=== PATIENT | female | born 1980 | race Caucasian/White ===

== ENCOUNTER 2016-08-26 02:00 | Inpatient (IN) | payer MEDICAID ==
[2016-08-26 02:30] LABS: % IMMATURE GRANULYOCYTES 0.3 % (0.0-1.1); ABSOLUTE IMMATURE GRANULOCYTES 0.03 10^3/uL (0.00-0.10); ADD DIFF? NO; ADD MORPH? YES; ADD SCAN? NO; ATYPICAL LYMPHOCYTE FLAG 0 (0-99); FRAGMENT RBC FLAG 0 (0-99); HEMATOCRIT 42.7 % (38.0-47.0); HEMOGLOBIN 12.1 g/dL (12.6-16.3); LEFT SHIFT FLG 0 (0-99); LIPEMIA HEMOLYSIS FLAG 70 (0-99); MEAN CELL HEMOGLOBIN 25.5 pg (27.9-34.1); MEAN CELL VOLUME 89.9 fL (81.5-99.8); MEAN PLATELET VOLUME 10.3 fL (8.7-11.7); PLATELET CLUMPS FLAG 10 (0-99); PLATELET COUNT 232 10^3/uL (150-400); RED BLOOD CELL COUNT 4.75 10^6/uL (4.18-5.33); RED CELL DISTRIBUTION WIDTH 16.3 % (11.5-15.2)
[2016-08-26 02:35] LABS: MEAN CELL HEMOGLOBIN CONCENTR. 28.3 g/dL (32.4-36.7)
[2016-08-26] MEDS ORDERED: HYDROmorphONE/DILAUDID 4 MG TAB PO ONE (03:01)
[2016-08-26] MEDS ORDERED: HYDROmorphONE/DILAUDID 2 MG TAB ONE (03:02)
[2016-08-26 03:06] LABS: HYPOCHROMIA 1+; PLATELET ESTIMATE ADEQUATE (ADEQ); POLYCHROMASIA 1+; STOMATOCYTES 1+
[2016-08-26 03:28] LABS: ANION GAP 7 mEq/L (8-16); CARBON DIOXIDE 19 mEq/l (22-31); CHLORIDE 122 mEq/L (97-110); CREATININE 0.4 mg/dL (0.6-1.0); GLOMERULAR FILTRATION RATE > 60; GLUCOSE 69 mg/dL (70-100); SODIUM 148 mEq/L (134-144)
[2016-08-26 03:38] LABS: CALCIUM 4.9 mg/dL (8.5-10.4); POTASSIUM 2.4 mEq/L (3.5-5.2)
[2016-08-26 03:39] LABS: TROPONIN I < 0.012 ng/mL (0-0.034)
[2016-08-26 04:13] LABS: ANION GAP 8 mEq/L (8-16); CALCIUM 8.5 mg/dL (8.5-10.4); CARBON DIOXIDE 33 mEq/l (22-31); CHLORIDE 101 mEq/L (97-110); CREATININE 0.7 mg/dL (0.6-1.0); GLOMERULAR FILTRATION RATE > 60; GLUCOSE 102 mg/dL (70-100); SODIUM 142 mEq/L (134-144)
--- NOTE | 2016-08-26 04:46 | CPEKG ---
Heart Rate: 92 RR Interval: 652 P-R Interval: 172 QRSD Interval: 74 QT Interval: 368 QTC Interval: 456 P [place]: 40 QRS [place]: 69 T Wave [place]: 5 EKG Severity - BORDERLINE ECG - EKG Impression: SINUS RHYTHM EKG Impression: LOW VOLTAGE IN FRONTAL LEADS EKG Impression: posterior EKG becasue of patient's positioning Electronically Signed By: Ada Guy 26-Aug-2016 07:40:57
--- NOTE | 2016-08-26 04:54 | EDPHY ---
H & P Stated Complaint: c/o L sided cp intermittent x 2 weeks Time Seen by Provider: 08/26/16 02:10 HPI/ROS: HPI The patient presents with chest pain which is in her left chest for the last 1- 2 weeks and getting progressively worse. She says the pain is somewhat positional, achy in nature, occasionally radiates to her right chest. It is associated with shortness of breath. She does not have any cough, nausea, vomiting, dizziness, diaphoresis. The patient is brought in by ambulance from [facility] where she is a resident. She has morbid obesity and is a functional quadriplegic. She describes worsening upper and lower extremity edema for the last 2 weeks and 3 days ago was started on Lasix for these symptoms. She has a history of pulmonary embolism and is on Lovenox twice daily currently. She is on supplemental oxygen at baseline, 6-8 L usually. She also has history of pneumothorax. REVIEW OF SYSTEMS Constitutional: No fever, no chills. Eyes: No discharge. ENT: No sore throat. Cardiovascular: No chest pain, no palpitations. Respiratory: No cough, no shortness of breath. Gastrointestinal: No abdominal pain, no vomiting. Genitourinary: No hematuria. Musculoskeletal: No back pain. Skin: No rashes. Neurological: No headache. PMHx: Morbid obesity, history of pulmonary embolism, history of pneumothorax Soc Hx: Resides at [facility] PHYSICAL General Appearance: Alert, no distress Eyes: Pupils equal and round no pallor or injection ENT, Mouth: Mucous membranes moist Respiratory: There are no retractions, lungs are clear to auscultation Cardiovascular: Regular rate and rhythm Gastrointestinal: Abdomen is soft and non-tender, no masses, bowel sounds normal Neurological: A&O, moves all extremities Skin: Warm and dry, no rashes Musculoskeletal: Neck is supple non tender Extremities: symmetrical, full range of motion Psychiatric: Patient is oriented X 3, there is no agitation Source: Patient, EMS - Personal History Tetanus Vaccine Date: 2012 - Medical/Surgical History Hx Asthma: No Hx Chronic Respiratory Disease: Yes Hx Diabetes: No Hx Cardiac Disease: No Hx Renal Disease: No Hx Cirrhosis: No Hx Alcoholism: No Hx HIV/AIDS: No Hx Splenectomy or Spleen Trauma: No Other PMH: Morbid obesity, pneumonia, abdominal surgery, epi, left leg surgery ; L chest port; anxiety; constipation; x2 PTX, ovarian cyst, wears 8L/NC at baseline, chronic pain, PE x 2 - Social History Smoking Status: Former smoker Constitutional: Initial Vital Signs Temperature (C) 36.9 C 08/26/16 02:27 Heart Rate 91 08/26/16 02:27 Respiratory Rate 18 08/26/16 02:27 Blood Pressure 116/95 H 08/26/16 02:27 O2 Sat (%) 100 08/26/16 02:27 O2 Delivery Mode Nasal Cannula O2 (L/minute) 7 Allergies/Adverse Reactions: amoxicillin Allergy (Unverified 02/08/15 18:34) aspirin Allergy (Verified 02/08/15 18:34) bupropion HCl [From Wellbutrin] Allergy (Verified 02/08/15 18:34) cephalexin monohydrate [From Keflex] Allergy (Verified 02/08/15 18:34) ciprofloxacin Allergy (Verified 02/08/15 18:34) codeine Allergy (Verified 02/08/15 18:34) cyclobenzaprine Allergy (Verified 02/08/15 18:34) cyclobenzaprine HCl [From Flexeril] Allergy (Verified 02/08/15 18:34) divalproex sodium [From Depakote] Allergy (Verified 02/08/15 18:34) fish oil Allergy (Verified 02/08/15 18:34) guaifenesin Allergy (Verified 02/08/15 18:34) ibuprofen Allergy (Verified 02/08/15 18:34) Iodinated Contrast Media - Oral and [Iodinated Contrast Media - IV Dye] Allergy (Verified 02/21/16 16:08) ketorolac Allergy (Verified 02/08/15 18:34) latex Allergy (Verified 02/08/15 18:34) morphine Allergy (Verified 02/08/15 18:34) mupirocin Allergy (Verified 02/08/15 18:34) nitroglycerin Allergy (Verified 02/08/15 18:34) NSAIDS (Non-Steroidal Anti-Inflamma Allergy (Verified 02/08/15 18:34) Penicillins Allergy (Verified 02/08/15 18:34) reishi mushroom [mushrooms] Allergy (Verified 02/08/15 18:34) sertraline HCl [From Zoloft] Allergy (Verified 02/08/15 18:34) sulfamethoxazole Allergy (Verified 02/08/15 18:34) tramadol Allergy (Verified 02/08/15 18:34) trimethoprim Allergy (Verified 02/08/15 18:34) venlafaxine HCl [From Effexor] Allergy (Verified 02/08/15 18:34) zolpidem tartrate [From Ambien] Allergy (Verified 02/08/15 18:34) Home Medications: Medication Instructions Recorded Acetaminophen [Tylenol ES 500 mg 500 mg PO Q6 PRN 09/23/14 (*)] Enoxaparin [Lovenox 120 MG (*)] 120 mg SQ BID 09/23/14 clonazePAM [Klonopin (*)] 0.5 mg PO Q6 PRN 09/23/14 Bisacodyl [Dulcolax] 10 mg IL Q2D PRN 11/08/14 Docusate Sodium [Colace 100 MG (*)] 100 mg PO BID 11/08/14 Prochlorperazine Maleate 5 mg PO Q6 PRN 11/08/14 [Compazine 5mg (*)] oxyCODONE IR [Oxycodone Ir (*)] 10 mg PO Q6 PRN 04/22/15 HYDROmorphone HCL [Dilaudid 2 mg 2 - 4 mg PO Q3H PRN #0 tab 04/27/15 (*)] Ipratropium/Albuterol [Duoneb (*)] 3 ml IH QID #0 deyvial 04/27/15 Magnesium Hydroxide [Milk of 30 ml PO DAILY PRN #0 udcup 04/27/15 Magnesia (*)] Polyethylene Glycol 3350 [Miralax 17 gm PO DAILY PRN #0 pkt 04/27/15 17 gm (*)] Promethazine HCl [Phenergan] 25 mg PO BID PRN #30 tab 04/27/15 Sennosides/Docusate Sodium 1 - 2 tab PO BID #0 tab 04/27/15 [Senokot-S] Medical Decision Making - Diagnostics EKG Interpretation: EKG performed on her posterior chest wall given her habitus: Complete interpretation has been separately recorded in the [email or web address] archive. Summary impression: Sinus rhythm with no ST segment elevation or depression Imaging Results: Chest x-ray one view is uninterpretable secondary to patient's habitus. ED Course/Re-evaluation: The patient is brought to the ER by ambulance and I have met the paramedics at the bedside to obtain their report. The patient was placed on oxygen. We are unable to obtain a chest x-ray given the patient's habitus. Labs were check, initially BMP was quite abnormal, thus it was repeated and was normal. D-dimer is 1, higher than it has been previously, which raises suspicion for pulmonary embolism, though she is currently anticoagulated. EKG was unremarkable, troponin was negative. Because the patient weighs more than 500 lb she cannot have a CT scan. Thus, I cannot evaluate for PE from the emergency room. She will require admission to the hospital for V/Q scan. I have discussed the case with the hospitalist Dr. Randell Foster who plans to admit the patient, I have ordered her a bed. Differential Diagnosis: This is a 36-year-old female with morbid obesity, obesity hypoventilation syndrome on chronic oxygen, history of PE, [facility] who presents with 2 weeks of progressive left-sided chest pain which has been intermittent. Differential diagnosis includes musculoskeletal pain, ACS, recurrent pulmonary embolism, pneumonia, less likely pneumothorax. - Data Points Laboratory Results: Laboratory Results 08/26/16 02:22 08/26/16 03:52 08/26/16 08/26/16 08/26/16 03:52 02:22 02:22 WBC RBC Hgb Hct MCV MCH MCHC RDW Plt Count MPV Neut % (Auto) Lymph % (Auto) Levy % (Auto) Eos % (Auto) Baso % (Auto) Nucleat RBC Rel Count Absolute Neuts (auto) Absolute Lymphs (auto) Absolute Monos (auto) Absolute Eos (auto) Absolute Basos (auto) Absolute Nucleated RBC Immature Gran % Immature Gran # Platelet Estimate Polychromasia Hypochromasia Stomatocytes D-Dimer 1.00 ug/mLFEU H ug/mLFEU (0.00-0.50) Sodium 142 mEq/L mEq/L (134-144) Potassium 4.0 mEq/L mEq/L (3.5-5.2) Chloride 101 mEq/L D mEq/L (97-110) Carbon Dioxide 33 mEq/l H D mEq/l (22-31) Anion Gap 8 mEq/L mEq/L (8-16) BUN 9 mg/dL mg/dL (7-23) Creatinine 0.7 mg/dL D mg/dL (0.6-1.0) Estimated GFR > 60 Glucose 102 mg/dL H mg/dL (70-100) Calcium 8.5 mg/dL D mg/dL (8.5-10.4) Troponin I Beta HCG, Qual NEGATIVE 08/26/16 08/26/16 02:22 02:22 WBC 10.31 10^3/uL H 10^3/uL (3.80-9.50) RBC 4.75 10^6/uL 10^6/uL (4.18-5.33) Hgb 12.1 g/dL L g/dL (12.6-16.3) Hct 42.7 % % (38.0-47.0) MCV 89.9 fL fL (81.5-99.8) MCH 25.5 pg L pg (27.9-34.1) MCHC 28.3 g/dL L g/dL (32.4-36.7) RDW 16.3 % H % (11.5-15.2) Plt Count 232 10^3/uL 10^3/uL (150-400) MPV 10.3 fL fL (8.7-11.7) Neut % (Auto) 57.7 % % (39.3-74.2) Lymph % (Auto) 34.0 % % (15.0-45.0) Levy % (Auto) 6.3 % % (4.5-13.0) Eos % (Auto) 1.4 % % (0.6-7.6) Baso % (Auto) 0.3 % % (0.3-1.7) Nucleat RBC Rel Count 0.0 % % (0.0-0.2) Absolute Neuts (auto) 5.95 10^3/uL 10^3/uL (1.70-6.50) Absolute Lymphs (auto) 3.51 10^3/uL H 10^3/uL (1.00-3.00) Absolute Monos (auto) 0.65 10^3/uL 10^3/uL (0.30-0.80) Absolute Eos (auto) 0.14 10^3/uL 10^3/uL (0.03-0.40) Absolute Basos (auto) 0.03 10^3/uL 10^3/uL (0.02-0.10) Absolute Nucleated RBC 0.00 10^3/uL 10^3/uL (0-0.01) Immature Gran % 0.3 % % (0.0-1.1) Immature Gran # 0.03 10^3/uL 10^3/uL (0.00-0.10) Platelet Estimate ADEQUATE (ADEQ) Polychromasia 1+ H Hypochromasia 1+ H Stomatocytes 1+ H D-Dimer Sodium 148 mEq/L H mEq/L (134-144) Potassium 2.4 mEq/L L* mEq/L (3.5-5.2) Chloride 122 mEq/L H mEq/L (97-110) Carbon Dioxide 19 mEq/l L mEq/l (22-31) Anion Gap 7 mEq/L L mEq/L (8-16) BUN 6 mg/dL L mg/dL (7-23) Creatinine 0.4 mg/dL L mg/dL (0.6-1.0) Estimated GFR > 60 Glucose 69 mg/dL L mg/dL (70-100) Calcium 4.9 mg/dL L* mg/dL (8.5-10.4) Troponin I < 0.012 ng/mL ng/mL (0-0.034) Beta HCG, Qual Medications Given: Discontinued Medications Hydromorphone HCl (Dilaudid) 4 mg PO EDNOW ONE Stop: 08/26/16 03:02 Last Admin: 08/26/16 03:04 Dose: 4 mg Departure - Departure Disposition: [facility] In[facility] Acute Clinical Impression: D-dimer, elevated Chest pain Qualifiers: Chest pain type: unspecified Qualified Code(s): R07.9 - Chest pain, unspecified Morbid obesity Qualifiers: Obesity type: unspecified obesity type Qualified Code(s): E66.01 - Morbid ( severe) obesity due to excess calories Condition: Fair Referrals: ALEXANDER BARBOSA [Primary Care Provider] - As per Instructions
[2016-08-26] MEDS ORDERED: ONDANSETRON 4 MG/2 ML VIAL IVP PRN (07:04)
[2016-08-26] MEDS ORDERED: ONDANSETRON DISINTEGRATING 4 MG TAB PO PRN (07:04)
[2016-08-26] MEDS ORDERED: ALBUTEROL 3 ML DEYVIAL IH PRN (07:04)
[2016-08-26] MEDS ORDERED: LORazepam 2 MG/ML INJ IVP PRN (07:04)
[2016-08-26] MEDS ORDERED: oxyCODONE IR 5 MG TAB PO PRN (07:04)
[2016-08-26] MEDS ORDERED: POLYETHYLENE GLYCOL 3350 17 GM PKT PO PRN (07:25)
[2016-08-26] MEDS ORDERED: LACTULOSE 20 GM/30 ML UDCUP PO PRN (07:25)
[2016-08-26] MEDS ORDERED: MAGNESIUM HYDROXIDE 30 ML UDCUP PO PRN (07:25)
--- NOTE | 2016-08-26 08:18 | GHP ---
[f rep st] HISTORY AND PHYSICAL DATE OF ADMISSION: 08/26/2016 CHIEF COMPLAINT: Chest pain. HISTORY: This is a 36-year-old female, who has a past medical history that includes morbid obesity. BMI previously around 70, as well as antithrombin 3, and prior PE/DVT, who presents with over 1 we ek of chest pain, which she describes as her "lungs hurting." She has not had any change in her oxy gen needs and is on her usual 8 L of O2. She denies any change in usual chronic cough. She has had no fevers or chills. She has chronic leg pain, which is stable, though she notes that she has incr eased edema in her bilateral lower extremities. She has recently been started on Lasix and has been urinating a lot. She notes that the pain in her chest is reminiscent of her prior PE. She really has a hard time localizing it, and states that it is essentially all over her chest. She has been c ompletely bedbound for the last 5 years to the extent where she is not even able any longer to roll off her left side. She notes that if she tries to lie on her right side, that she has problems homer thing. She is on treatment dose of Lovenox, though whether or not this is a truly therapeutic dose is difficult to ascertain given her body mass. She has had no other changes in her health, although she does become tearful in talking to me, stating that she has a lot of concerns about the fact leigh t she is 36 years old, and is completely bedbound. Has fears that she may not live very long. PAST MEDICAL HISTORY: Includes: 1. Morbid obesity. Current weight is 240 kg with a prior BMI of 60-77. 2. Antithrombin 3 deficiency. 3. History of PE/DVT/recurrent. 4. Chronic pain with continuous narcotic use and dependency secondary to chronic leg pain. 5. Depression and anxiety. 6. ISRAEL and OHS. 7. Osteoarthritis. 8. Chronic hypoxic respiratory failure requiring 8 L of oxygen at baseline. 9. Chronic immobility, which she states started 10 years ago after a leg surgery did not go well, a nd is now complicated by her obesity and deconditioning. PAST SURGICAL HISTORY: Includes: 1. Cholecystectomy. 2. Hernia repair. 3. . 4. Pneumothorax x2, with chest tubes. 5. Leg surgery with leona placement leading to chronic pain. FAMILY HISTORY: Reviewed and is unremarkable. SOCIAL HISTORY: Patient currently resides at [facility] in long-term care. She is and h er accompanies her here today. She has a 15-year-old daughter. She is a nonsmoker, nondrin ker, nondrug user. REVIEW OF SYSTEMS: A 10-point review of systems obtained and is negative except as per HPI. MEDICATIONS: Include: 1. Oxycodone. 2. Klonopin. 3. Senna. 4. Phenergan. 5. Compazine. 6. MiraLAX. 7. Milk of magnesia. 8. DuoNeb. 9. Dilaudid. 10. Lovenox. 11. Docusate. 12. Bisacodyl. 13. Tylenol. ALLERGIES: These are multiple and include penicillins, cephalosporins, fluoroquinolones, sulfa. Pl ease see the EHR for full list. PHYSICAL EXAM: VITAL SIGNS: BP 117/75, heart rate 87, respiratory rate 20, O2 sats 99% on 8 L, tem perature is 37.1. GENERAL APPEARANCE: A morbidly obese female, she is lying on her side completely naked, playing Candy Crush on her phone. She is in no acute distress. EYES: Anicteric. HENT: O ropharynx is clear. CARDIOVASCULAR: Distant heart sounds secondary to body habitus, but no murmurs , rubs, or gallops appreciated. HEART: Sounds appear to be regular. PULMONARY: Again, limited ex am secondary to body habitus, but no audible wheezes, rales, or rhonchi. Work of breathing does not appear increased. ABDOMEN: Obese, soft. Nontender. EXTREMITIES: There is bilateral pitting macie ma, and tenderness to palpation in bilateral lower extremities. SKIN: Warm, dry, well perfused. T here is peau d' orange texture to her breasts and multiple areas of maceration noted underneath the skin folds. Full scale skin exam was unable to be performed secondary to the patient's immobility a nd size. CLINICAL DATA: Labs reviewed. White blood cell count of 10.3, hematocrit 42.7, platelets of 232. D-dimer is 1. Chemistry is notable for a bicarb of 33. Glucose of 102. Chest x-ray, personally interpreted by myself prior to radiology read, it is not interpretable, and will need to be repeated. EKG, personally reviewed and interpreted, shows sinus rhythm, low voltage frontal leads. ASSESSMENT AND PLAN: This is a 36-year-old female, multiple medical issues including morbid obesity , immobility, and antithrombin 3 deficiency with prior pulmonary embolism and deep venous thrombosis , who presents with chest pain. 1. Chest pain. Quite atypical sound, present for 1 week. Troponin initially negative. EKG withou t ischemic changes. Chest x-ray is completely uninterpretable and will need to be repeated. Concer n raised for a positive D-dimer and possible recurrent pulmonary embolism, though her D-dimer is anita lly only marginally elevated, especially given other reasons she would have to have a positive D-dim er. Unfortunately, testing options are limited given her body habitus. She is not going to be able to be placed on a CT scanner, and given likely underlying pulmonary hypertension, a V/Q scan is lik santos contraindicated. We will get ultrasounds of her legs and an echocardiogram, though these too ma y be uninterpretable secondary to her body habitus. We will resume her treatment dose of Lovenox an d ask pharmacy to weigh in on whether this dose needs to be adjusted due to her weight. We will mon itor on telemetry with serial troponins and EKGs. This certainly could be part of her overall pain syndrome rather than a clearly new finding, and she really does not seem terribly concerned about it , making it a little bit harder to interpret. 2. Chronic hypoxic respiratory failure. This is at baseline. Will continue bronchodilators. This is multifactorial and related to obesity hypoventilation syndrome/obstructive sleep apnea, as well as chronic narcotic use and immobility. Again, her chest x-ray was not interpretable and will try t o repeat this. Will need to discuss with Radiology if there is any options for possible CT scanning or not. 3. Obstructive sleep apnea/obesity hypoventilation syndrome with evidence of right heart failure on exam. Again, we will attempt an echocardiogram, though this may be limited by body habitus. Will continue her home dose of Lasix once this is confirmed. 4. Morbid obesity. As per above. Certainly contributing to her inability to ambulate though she d oes not think that this is the case. Lifestyle modification. Dietary consultation. 5. Chronic pain with continuous narcotic use and dependency. Will continue her home regimen with a dditional pain med available for transfers, which are quite painful for her. 6. Skin macerations/candidiasis. Patient has evidence of likely candidiasis, as well as just chron ic macerated skin from her areas of [id number] contact. Will ask Wound Care to evaluate. She has an allergy to nystatin, so will hold off on any topical treatment until this can be further confirm ed what this actual allergy is. 7. History of pulmonary embolism/deep venous thrombosis and antithrombin 3 deficiency. As per prob adria #1, we will continue Lovenox treatment dose. Echocardiogram and ultrasound of the legs. 8. Code status is do not resuscitate. 9. Disposition. The patient is in long-term care at [facility]. She is and her accompanies her here today. She will return there when she is discharged. 10. Patient is new to my care. Old records reviewed, summarized as per HPI and past medical histor y. Care plan reviewed with the ER doc including plans for further evaluation for possible pulmonary embolism. Further history was obtained from patient's present at bedside. /[id number]/MODL
[2016-08-26] MEDS ORDERED: SENNOSIDES/DOCUSATE SODIUM TAB PO SCH (09:00)
[2016-08-26] MEDS: HYDROmorphONE/DILAUDID 1 MG/ML SYR IVP PRN ×3 (09:44→22:03)
[2016-08-26] MEDS: PROMETHAZINE HCL 25 MG TAB PO PRN (09:51)
--- NOTE | 2016-08-26 10:25 | WOCRNPDOC ---
[facility] Advanced Assessment Note - Skin Integrity Problem, Advanced Assess Right Medial Back Dermatitis Dressing Type: Open to Air Exudate Amount: None Exudate Characteristic(s): None Jeny Wound Tissue: Intact Jeny Wound Swelling: None Wound Bed Color: Red Site Odor: None Skin Integrity Problem Comment: Raw, denuded skin noted deep in skin fold along patient's R medial back, consistent in appearance w/ intertriginous dermatitis caused by both moisture and friction. No satellite lesions observed, which would be indicative of yeast. Wound has a mirrored appearance, w/ matching denudement on both the superior and inferior aspects of the skin folds where the two come together and touch. Per her report, this injury was caused by the paramedics when they were transferring her from her bed at [facility] to their stretcher; however, the presentation is not consistent w/ an abrasion. Supplied sparker and patcherMARCIA Estrada w/ Interdry sheets to apply in this fold (and others) to protect the skin from moisture/friction. Generalized Pannus Dermatitis Dressing Type: Open to Air Exudate Amount: None Exudate Characteristic(s): None Jeny Wound Tissue: Intact Jeny Wound Swelling: None Wound Bed Color: Red Site Odor: Slight Skin Integrity Problem Comment: Raw, denuded skin w/ linear, partial-thickness erosion noted along crease, consistent in appearance w/ intertriginous dermatitis r/t moisture and friction. Will have nursing apply Interdry sheets to this and other skin folds to help protect.
[2016-08-26] MEDS ORDERED: HYDROmorphONE/DILAUDID 4 MG TAB PO PRN (11:03)
[2016-08-26] MEDS ORDERED: IPRATROPIUM/ALBUTEROL 3 ML DEYVIAL IH SCH (12:00)
[2016-08-26] MEDS: ENOXAPARIN 100 MG/ML SYR SC SCH ×2 (12:30→21:58)
[2016-08-26] MEDS ORDERED: PROMETHAZINE HCL 25 MG TAB PO PRN (14:25)
[2016-08-26] MEDS ORDERED: IPRATROPIUM/ALBUTEROL 3 ML DEYVIAL IH PRN (14:27)
[2016-08-26] MEDS ORDERED: ALTEPLASE 2 MG VIAL IVP PRN (14:50)
[2016-08-26 15:47] LABS: COLOR YELLOW; LEUKOCYTE ESTERASE,URINE NEGATIVE (NEGATIVE); NITRITE,URINE NEGATIVE (NEGATIVE)
--- NOTE | 2016-08-26 15:55 | HOSPPROG ---
Hospitalist Progress Note Assessment/Plan: * Pleuritic chest pain and SOB -unable to evaluate for DVT/PE -over weight limit for CT table, poor quality CXR/US -[facility] - [facility] dose -increase Lovenox 200mg SubQ BID -check Factor Xa level 4 hours after Monday am dose * h/o PE/DVT and hypercoagulable state (anti-thrombin 3) -full anticoagulation as above -oral agent not approved in her weight range * Massive volume overload -IV lasix -d/w Dr. Garcia - unable to do ECHO due to body habitus * Super Morbid Obesity BMI 93 * ISRAEL - BIPAP qhs * Chronic respiratory failure due to OHS - 8L baseline * Tobacco dependence - patch * Skin breakdown - unlikely yeast per wound RN Subjective: c/o pain due to diffuse edema. Objective: Vital Signs Temp Pulse Resp BP Pulse Ox 36.6 C 90 18 124/78 H 93 08/26/16 15:12 08/26/16 15:12 08/26/16 15:12 08/26/16 15:12 08/26/16 15:12 IV dilaudid for uncontrolled pain US leg - no DVT but limited study CXR viewed, my personal interpretation is - very poor study, impossible to interpret EKG viewed, my personal interpretation is - low voltage, no ischemia - Physical Exam Constitutional: no apparent distress, appears nourished, not in pain, other ( lying on left side, unable to move, massive obesity) Cardiovascular: regular rate and rhythym, no murmur, rub, or gallop, edema (4+ in all dependent skin areas) Respiratory: no respiratory distress, no rales or rhonchi, clear to auscultation Gastrointestinal: normoactive bowel sounds, soft, non-tender abdomen, no palpable masses Skin: no rashes or abrasions, no fluctuance, no induration Neurologic: AAOx3, sensation intact bilaterally Psychiatric: interacting appropriately, not anxious, not encephalopathic, thought process linear ICD10 Worksheet Patient Problems: Problems Problem Status Onset Chest pain Acute D-dimer, elevated Acute Morbid obesity Acute Pneumonia Acute
[2016-08-26] MEDS: NICOTINE POLACRILEX 2 MG GUM B PRN (16:32)
[2016-08-26] MEDS: NICOTINE 21 MG/24 HR PATCH TD SCH (16:40)
[2016-08-26] MEDS: clonazePAM 1 MG TAB PO PRN ×2 (16:41→22:11)
[2016-08-26] MEDS: oxyCODONE IR 5 MG TAB PO PRN (18:45)
[2016-08-26] MEDS: DOCUSATE SODIUM 100 MG CAP PO SCH (21:54)
[2016-08-26] MEDS: HYDROmorphONE/DILAUDID 4 MG TAB PO PRN (21:54)
[2016-08-26] MEDS: SENNOSIDES/DOCUSATE SODIUM TAB PO SCH (21:54)
[2016-08-26] MEDS: FUROSEMIDE 40 MG/4 ML VIAL IVP SCH (21:54)
[2016-08-27] MEDS: FUROSEMIDE 40 MG/4 ML VIAL IVP SCH ×3 (05:15→21:04)
[2016-08-27] MEDS: HYDROmorphONE/DILAUDID 1 MG/ML SYR IVP PRN ×5 (05:35→21:03)
[2016-08-27] MEDS: oxyCODONE IR 5 MG TAB PO PRN ×2 (09:51→17:40)
[2016-08-27] MEDS: clonazePAM 1 MG TAB PO PRN ×2 (09:51→22:46)
[2016-08-27] MEDS: ENOXAPARIN 100 MG/ML SYR SC SCH ×2 (09:51→21:04)
[2016-08-27] MEDS: DOCUSATE SODIUM 100 MG CAP PO SCH ×2 (09:52→21:03)
[2016-08-27] MEDS: NICOTINE 21 MG/24 HR PATCH TD SCH (09:52)
[2016-08-27] MEDS: SENNOSIDES/DOCUSATE SODIUM TAB PO SCH ×2 (09:52→21:03)
--- NOTE | 2016-08-27 10:11 | HOSPPROG ---
Hospitalist Progress Note Assessment/Plan: 36-year-old with morbid obesity and BMI greater than 60 complicated by chronic respiratory failure on 3 L oxygen at baseline. Is admitted with pleuritic chest pain. She has a history of recurrent PEs and DVTs. # Pleuritic chest pain and SOB * unable to evaluate for DVT/PE * over weight limit for CT table, poor quality CXR/US * getting Lovenox 120mg BID at [facility] - under dose * increase Lovenox 200mg SubQ BID, check Factor Xa level 4 hours after Monday am dose # h/o PE/DVT and hypercoagulable state (anti-thrombin 3) * full anticoagulation as above * oral agent not approved in her weight range # Massive volume overload * IV Lasix unable to do echo due to body habitus # Super Morbid Obesity BMI 93 # ISRAEL - BIPAP qhs # Chronic respiratory failure due to OHS - 8L baseline # Tobacco dependence - patch # Skin breakdown - unlikely yeast per wound RN Subjective: patient new to me and chart reviewed patient has no new complaints today Objective: Vital Signs Temp Pulse Resp BP Pulse Ox 37.1 C 77 18 134/71 H 100 08/27/16 08:00 08/27/16 08:00 08/27/16 08:00 08/27/16 00:34 08/27/16 00:34 08/26/16 08/27/16 08/28/16 05:59 05:59 05:59 Output Total 4100 1500 Balance -4100 -1500 - Physical Exam Constitutional: chronically ill appearing, obese, uncomfortable Eyes: PERRL Ears, Nose, Mouth, Throat: moist mucous membranes, hearing normal Cardiovascular: regular rate and rhythym, other ( very distal heart sounds) Respiratory: reduced air movement, respiratory distress, No expiratory wheeze Gastrointestinal: normoactive bowel sounds, soft, non-tender abdomen Genitourinary: no bladder fullness Skin: warm, normal color, other (see wound care note) Musculoskeletal: generalized weakness Neurologic: AAOx3 Psychiatric: interacting appropriately, flat affect ICD10 Worksheet Patient Problems: Problems Problem Status Onset Pneumonia Acute Chest pain Acute Morbid obesity Acute D-dimer, elevated Acute
[2016-08-27] MEDS: HYDROmorphONE/DILAUDID 4 MG TAB PO PRN ×2 (17:35→22:46)
[2016-08-27] MEDS: NICOTINE POLACRILEX 2 MG GUM B PRN (17:40)
--- NOTE | 2016-08-27 19:35 | CPEKG ---
Heart Rate: 83 RR Interval: 723 QRSD Interval: 88 QT Interval: 288 QTC Interval: 339 QRS [place]: 89 T Wave [place]: -3 EKG Severity - ABNORMAL ECG - EKG Impression: SINUS RHYTHM EKG Impression: BORDERLINE T ABNORMALITIES, ANTERIOR LEADS Electronically Signed By: Maria E Valverde 29-Aug-2016 07:06:14
[2016-08-27 22:07] LABS: % IMMATURE GRANULYOCYTES 0.4 % (0.0-1.1); ABSOLUTE IMMATURE GRANULOCYTES 0.04 10^3/uL (0.00-0.10); ADD DIFF? NO; ADD MORPH? YES; ADD SCAN? NO; ATYPICAL LYMPHOCYTE FLAG 0 (0-99); FRAGMENT RBC FLAG 0 (0-99); HEMATOCRIT 42.4 % (38.0-47.0); HEMOGLOBIN 12.2 g/dL (12.6-16.3); LEFT SHIFT FLG 0 (0-99); LIPEMIA HEMOLYSIS FLAG 70 (0-99); MEAN CELL HEMOGLOBIN 25.5 pg (27.9-34.1); MEAN CELL VOLUME 88.5 fL (81.5-99.8); MEAN PLATELET VOLUME 10.4 fL (8.7-11.7); PLATELET CLUMPS FLAG 0 (0-99); PLATELET COUNT 243 10^3/uL (150-400); RED BLOOD CELL COUNT 4.79 10^6/uL (4.18-5.33); RED CELL DISTRIBUTION WIDTH 16.2 % (11.5-15.2)
[2016-08-27 22:09] LABS: MEAN CELL HEMOGLOBIN CONCENTR. 28.8 g/dL (32.4-36.7)
[2016-08-27 22:14] LABS: INR 1.26 (0.83-1.16); PROTIME(PATIENT) 15.8 SEC (12.0-15.0)
[2016-08-27 22:18] LABS: ALBUMIN 3.1 g/dL (3.5-5.0); BILIRUBIN,TOTAL 0.9 mg/dL (0.1-1.4); BILIRUBIN-CONJUGATED 0.3 mg/dL (0.0-0.5); BILIRUBIN-UNCONJUGATED 0.6 mg/dL (0.0-1.1); TOTAL PROTEIN 6.6 g/dL (6.3-8.2)
[2016-08-27 22:32] LABS: HYPOCHROMIA 2+; LARGE PLATELETS PRESENT; MICROCYTES 1+; POLYCHROMASIA 1+; STOMATOCYTES 1+
[2016-08-27 22:33] LABS: PLATELET ESTIMATE ADEQUATE (ADEQ)
[2016-08-28] MEDS: HYDROmorphONE/DILAUDID 1 MG/ML SYR IVP PRN ×4 (00:15→20:12)
[2016-08-28 03:00] LABS: ALANINE AMINOTRANSFERASE 26 IU/L (9-52); ALBUMIN 3.1 g/dL (3.5-5.0); ALKALINE PHOSPHATASE 61 IU/L (38-126); ASPARTATE AMINOTRANSFERASE 20 IU/L (14-46); BILIRUBIN,TOTAL 0.9 mg/dL (0.1-1.4); CHLORIDE 94 mEq/L (97-110); CREATININE 0.7 mg/dL (0.6-1.0); GLOMERULAR FILTRATION RATE > 60; GLUCOSE 128 mg/dL (70-100); POTASSIUM 3.2 mEq/L (3.5-5.2); SODIUM 142 mEq/L (134-144); TOTAL PROTEIN 7.1 g/dL (6.3-8.2)
[2016-08-28 03:11] LABS: TROPONIN I 0.012 ng/mL (0-0.034)
[2016-08-28 03:23] LABS: ANION GAP 5 mEq/L (8-16)
[2016-08-28 03:26] LABS: CARBON DIOXIDE 43 mEq/l (22-31)
[2016-08-28] MEDS: oxyCODONE IR 5 MG TAB PO PRN ×3 (04:49→17:23)
[2016-08-28 05:17] LABS: % IMMATURE GRANULYOCYTES 0.4 % (0.0-1.1); ABSOLUTE IMMATURE GRANULOCYTES 0.04 10^3/uL (0.00-0.10); ADD DIFF? NO; ADD MORPH? YES; ADD SCAN? NO; ATYPICAL LYMPHOCYTE FLAG 0 (0-99); FRAGMENT RBC FLAG 0 (0-99); HEMATOCRIT 41.6 % (38.0-47.0); HEMOGLOBIN 11.9 g/dL (12.6-16.3); LEFT SHIFT FLG 0 (0-99); LIPEMIA HEMOLYSIS FLAG 70 (0-99); MEAN CELL HEMOGLOBIN 25.1 pg (27.9-34.1); MEAN CELL VOLUME 87.6 fL (81.5-99.8); MEAN PLATELET VOLUME 9.8 fL (8.7-11.7); PLATELET CLUMPS FLAG 0 (0-99); PLATELET COUNT 212 10^3/uL (150-400); RED BLOOD CELL COUNT 4.75 10^6/uL (4.18-5.33); RED CELL DISTRIBUTION WIDTH 16.3 % (11.5-15.2)
[2016-08-28 05:24] LABS: MEAN CELL HEMOGLOBIN CONCENTR. 28.6 g/dL (32.4-36.7)
[2016-08-28 05:29] LABS: ANION GAP 10 mEq/L (8-16); CARBON DIOXIDE 39 mEq/l (22-31); CHLORIDE 93 mEq/L (97-110); CREATININE 0.7 mg/dL (0.6-1.0); GLOMERULAR FILTRATION RATE > 60; GLUCOSE 121 mg/dL (70-100); POTASSIUM 3.1 mEq/L (3.5-5.2); SODIUM 142 mEq/L (134-144)
[2016-08-28 06:07] LABS: HYPOCHROMIA 1+; PLATELET ESTIMATE ADEQUATE (ADEQ); POLYCHROMASIA 1+; STOMATOCYTES 1+
[2016-08-28] MEDS: DOCUSATE SODIUM 100 MG CAP PO SCH ×2 (08:35→20:15)
[2016-08-28] MEDS: SENNOSIDES/DOCUSATE SODIUM TAB PO SCH ×2 (08:35→20:15)
[2016-08-28] MEDS: ENOXAPARIN 100 MG/ML SYR SC SCH ×2 (10:49→23:31)
[2016-08-28] MEDS: HYDROmorphONE/DILAUDID 4 MG TAB PO PRN ×3 (10:50→22:24)
[2016-08-28] MEDS: NICOTINE 21 MG/24 HR PATCH TD SCH (10:50)
--- NOTE | 2016-08-28 14:52 | HOSPPROG ---
Hospitalist Progress Note Assessment/Plan: 36-year-old with morbid obesity and BMI greater than 60 complicated by chronic respiratory failure on 3 L oxygen at baseline. Is admitted with pleuritic chest pain. She has a history of recurrent PEs and DVTs. She is complaining of more chest pain today and having trouble breathing. However her oxygen sats are normal to high and she appears alert and not sedated currently # Pleuritic chest pain and SOB. Complaining to me of chest pain and shortness of breath. Awaiting factor Xa levels to assess dosing of Lovenox. For now will continue to treat pain needed. * unable to evaluate for DVT/PE * over weight limit for CT table, poor quality CXR/US * getting Lovenox 120mg BID at [facility] - under dose * increase Lovenox 200mg SubQ BID, check Factor Xa level 4 hours after Monday am dose # h/o PE/DVT and hypercoagulable state (anti-thrombin 3) * full anticoagulation as above * oral agent not approved in her weight range # Massive volume overload, elevated CO2 levels this morning, IV Lasix discontinued and will start her on oral Lasix in the morning. * unable to do echo due to body habitus * In accurate intake I suspect patient not compliant in telling us her intake * In accurate weights, bed not accurate and she is so heavy we cannot even take her out of bed # Super Morbid Obesity BMI 93 # [place] - BIPAP qhs # Chronic respiratory failure due to OHS - 8L baseline # Tobacco dependence - patch # Skin breakdown - unlikely yeast per wound RN # Fever: pt developed fever this pm. No new symptoms except ongoing cp and sob and oxygen needs are better then admission. Unable to do any eval due to obesity except blood cultures. Recently accessed her port for blood draws. * check blood and urine (get a blood culture from port) * give dose of vanco for possible line infection. * follow clinically. Subjective: Complains of chest pain Objective: Vital Signs Temp Pulse Resp BP Pulse Ox 38.2 C 107 H 18 124/90 H 100 08/28/16 10:57 08/28/16 10:57 08/28/16 10:57 08/28/16 10:57 08/28/16 10:57 Laboratory Results 08/28/16 04:58 08/28/16 04:58 08/27/16 08/28/1608/29/17 05:59 05:59 05:59 Intake Total 1999 Output Total 4101 7718 300 Balance -3600 -7150 -300 PT 15.8 SEC (12.0-15.0) H 08/27/16 21:50 INR 1.26 (0.83-1.16) H 08/27/16 21:50 - Physical Exam Constitutional: chronically ill appearing, obese, uncomfortable Eyes: EOMI Ears, Nose, Mouth, Throat: moist mucous membranes Cardiovascular: regular rate and rhythym, other (distant) Respiratory: clear to auscultation Gastrointestinal: normoactive bowel sounds, other (obese) Genitourinary: no bladder fullness, carrillo in urethra Skin: warm, No mottled Neurologic: No facial droop Psychiatric: flat affect ICD10 Worksheet Patient Problems: Problems Problem Status Onset Pneumonia Acute Chest pain Acute Morbid obesity Acute D-dimer, elevated Acute
[2016-08-28] MEDS: VANCOMYCIN 1.25 GM in D5W 250 ML IV SCH (17:05)
[2016-08-28 17:09] LABS: COLOR AMBER; LEUKOCYTE ESTERASE,URINE TRACE (NEGATIVE); NITRITE,URINE NEGATIVE (NEGATIVE)
[2016-08-28 17:41] LABS: BACTERIA 4+ /hpf (NONE SEEN); MUCUS TRACE /lpf (NONE-1+); RBC,URINE 50-182 /hpf (0-3); WBC,URINE 25-50 /hpf (0-3)
[2016-08-28] MEDS ORDERED: ERTAPENEM 1 GM in NS 100 ML IV SCH (20:00)
[2016-08-28] MEDS: ERTAPENEM 1 GM in NS 100 ML IV SCH (20:12)
[2016-08-28] MEDS: ACETAMINOPHEN 325 MG TAB PO PRN (22:24)
[2016-08-29] MEDS: HYDROmorphONE/DILAUDID 1 MG/ML SYR IVP PRN ×5 (01:22→19:54)
[2016-08-29] MEDS: oxyCODONE IR 5 MG TAB PO PRN ×2 (01:22→19:54)
[2016-08-29] MEDS: VANCOMYCIN 1.25 GM in D5W 250 ML IV SCH ×2 (04:12→16:37)
[2016-08-29] MEDS: PROMETHAZINE HCL 25 MG TAB PO PRN (04:29)
[2016-08-29 04:32] LABS: % IMMATURE GRANULYOCYTES 0.3 % (0.0-1.1); ABSOLUTE IMMATURE GRANULOCYTES 0.02 10^3/uL (0.00-0.10); ADD DIFF? NO; ADD MORPH? YES; ADD SCAN? NO; ATYPICAL LYMPHOCYTE FLAG 0 (0-99); FRAGMENT RBC FLAG 0 (0-99); HEMATOCRIT 42.4 % (38.0-47.0); HEMOGLOBIN 11.9 g/dL (12.6-16.3); LEFT SHIFT FLG 0 (0-99); LIPEMIA HEMOLYSIS FLAG 70 (0-99); MEAN CELL HEMOGLOBIN 25.4 pg (27.9-34.1); MEAN CELL VOLUME 90.6 fL (81.5-99.8); MEAN PLATELET VOLUME 10.5 fL (8.7-11.7); PLATELET CLUMPS FLAG 0 (0-99); PLATELET COUNT 185 10^3/uL (150-400); RED BLOOD CELL COUNT 4.68 10^6/uL (4.18-5.33); RED CELL DISTRIBUTION WIDTH 16.6 % (11.5-15.2)
[2016-08-29] MEDS: HYDROmorphONE/DILAUDID 4 MG TAB PO PRN ×4 (04:35→22:53)
[2016-08-29 04:47] LABS: ANION GAP 8 mEq/L (8-16); CALCIUM 7.7 mg/dL (8.5-10.4); CARBON DIOXIDE 38 mEq/l (22-31); CHLORIDE 92 mEq/L (97-110); GLOMERULAR FILTRATION RATE > 60; GLUCOSE 124 mg/dL (70-100); POTASSIUM 3.5 mEq/L (3.5-5.2); SODIUM 138 mEq/L (134-144)
[2016-08-29 04:51] LABS: MEAN CELL HEMOGLOBIN CONCENTR. 28.1 g/dL (32.4-36.7)
[2016-08-29 05:17] LABS: HYPOCHROMIA 1+; MICROCYTES 1+; POLYCHROMASIA 1+; STOMATOCYTES 1+
[2016-08-29 05:18] LABS: PLATELET ESTIMATE ADEQUATE (ADEQ)
[2016-08-29] MEDS: clonazePAM 1 MG TAB PO PRN ×2 (05:51→22:53)
[2016-08-29] MEDS: SENNOSIDES/DOCUSATE SODIUM TAB PO SCH ×2 (08:50→20:15)
[2016-08-29] MEDS: DOCUSATE SODIUM 100 MG CAP PO SCH ×2 (08:50→20:15)
[2016-08-29] MEDS: FUROSEMIDE 40 MG TAB PO SCH (08:55)
[2016-08-29] MEDS: ERTAPENEM 1 GM in NS 100 ML IV SCH ×2 (08:58→09:08)
[2016-08-29] MEDS ORDERED: ERTAPENEM 1 GM in NS 100 ML IV SCH (09:00)
[2016-08-29] MEDS: NICOTINE 21 MG/24 HR PATCH TD SCH (09:05)
[2016-08-29] MEDS: FLUCONAZOLE/NaCl 200 ML IV SCH (09:55)
[2016-08-29] MEDS: ENOXAPARIN 100 MG/ML SYR SC SCH ×2 (10:38→20:13)
--- NOTE | 2016-08-29 10:39 | GCON ---
[f rep st] CONSULTATION INFECTIOUS DISEASES CONSULTATION DATE OF CONSULTATION: 08/29/2016 REFERRING PHYSICIAN: Amena Davis MD REASON FOR CONSULTATION: Bacteremia/fungemia. HISTORY OF PRESENT ILLNESS: Patient is a 36-year-old female with a past medical history of morbid o besity, pneumonia, and antithrombin III deficiency whom I am asked to see in consultation for entero coccal bacteremia and candidal fungemia. The patient was admitted on 08/26/2016 for chest pain and chronic respiratory failure. She describes having low-grade temperatures prior to admission. She d oes have a port in the left upper chest and does complain of pain at this site. Her port was access ed, and subsequently patient developed a temperature to 39.6. This prompted 2 sets of blood culture s, which are now showing enterococcus species, which is noted to be vancomycin susceptible by PCR, a s well as Isa parapsilosis. Candidal species were not seen on Gram stain, but were identified b y PCR testing of blood specimen. She is currently receiving treatment with vancomycin and ertapenem . The patient did not note any dysuria prior to admission. She does have worsening lower extremity edema and erythema of both feet. The remainder of the history is difficult to obtain. Based on th e patient's positive blood cultures, I am now asked to assist in her ongoing management. PAST MEDICAL HISTORY: Morbid obesity, pneumonia, antithrombin III deficiency, depression, chronic p ain, sleep apnea, history of pneumothorax. PAST SURGICAL HISTORY: Cholecystectomy, herniorrhaphy, , left leg surgery with leona being p laced. CURRENT MEDICATIONS: Vancomycin 1.25 g IV q.12 hours, ertapenem 1 g IV daily, Lovenox 200 mg subcu b.i.d., Klonopin 1 mg p.o. b.i.d. as needed, DuoNeb q.i.d., Proventil as needed, Lasix 40 mg p.o. da deann, Dilaudid as needed for pain, Nicoderm CQ 21 mg patch daily, Senokot 2 p.o. b.i.d. ALLERGIES: Amoxicillin and penicillin associated with anaphylaxis, ciprofloxacin associated with an aphylaxis. She believes she had swelling when she came into contact with azithromycin, Bactrim, Fle xeril, codeine, Wellbutrin, Toradol, morphine, nitroglycerin, nonsteroidal agents, tramadol, Effexor . SOCIAL HISTORY: Patient is a former smoker. She currently lives at [facility]. FAMILY HISTORY: Diabetes. REVIEW OF SYSTEMS: Currently, a 10-system review is difficult to obtain from the patient. PHYSICAL EXAMINATION: VITAL SIGNS: Temperature maximum 39.6, temperature current 37.1, heart rate 97, respiratory rate 18, blood pressure 108/78, oxygen saturation 94% on 40% via BiPAP. GENERAL: Venkata houston is morbidly obese, in no acute distress. She appears nontoxic. HEENT: There is no scleral icterus, conjunctival injection, or conjunctival petechiae. Oropharynx shows no thrush. Mucous mem branes are moist. There is no nasal discharge. CHEST: Port in left upper chest shows no erythema, drainage or tenderness. Breath sounds are difficult to auscultate based on body habitus. CARDIOVA SCULAR: Difficult to auscultate based on body habitus. ABDOMEN: Edema is present. Nontender. MU SCULOSKELETAL: Both feet show erythema with warmth and tenderness as well as edema. LABORATORY DATA: White blood cell count 6.8, hematocrit 42.4, platelets 185, neutrophils 77%. Seru m creatinine is 1.0, AST 20, ALT 26, bilirubin 0.9, alkaline phosphatase 61. Urinalysis shows 50-18 2 red blood cells and 25-50 white blood cells. Blood cultures show enterococcus species, which is v ancomycin susceptible in both sets; 1 set also showing Isa parapsilosis, which is only identifie d by PCR and not seen on Gram stain. Urine culture is pending. IMPRESSION: 1. Enterococcal bacteremia: Possible sources are line associated versus urinary. Await urine cult ure to further assist. Species identification is pending, but noted by BCID to be vancomycin suscep tible. Will continue vancomycin and follow creatinine and vancomycin levels. 2. Candidemia: 1 blood culture is also showing Isa parapsilosis by PCR, but this was not seen on Gram stain. Will await culture. Isa parapsilosis tends to be azole susceptible. If this is confirmed, will necessitate port removal. RECOMMENDATIONS: 1. Agree with vancomycin 1.25 g IV q.12 hours. 2. Begin fluconazole 400 mg IV q.24 hours. 3. Discontinue ertapenem. 4. Repeat blood cultures to assess for clearing of bacteremia and fungemia. 5. Await further blood culture identification and susceptibility. If isa is confirmed, will ne cessitate port removal. Thank you for this consultation. We will continue to follow the patient with you. /[id number]/MODL
--- NOTE | 2016-08-29 11:51 | HOSPPROG ---
Hospitalist Progress Note Assessment/Plan: 36-year-old with morbid obesity and BMI greater than 60 complicated by chronic respiratory failure on 3 L oxygen at baseline. Is admitted with pleuritic chest pain. She has a history of recurrent PEs and DVTs. She developed fevers over the last 24 hours. Due to her body habitus is it is impossible to do any imaging to assist with evaluation however blood cultures are positive. She does have a port placed for access which could be the cause of her bacteremia. Discussed with Dr. Lam Oconnell. # bacteremia with enterococcus and possibly Nesha. Discussed with Dr. Oconnell. Patient has a port and calcitonin for port infection. * Continue Vanco * Fluconazole per Infectious Disease * Would need to consider discontinuation of port if Nesha infection confirmed. * Follow up on urine culture for possible etiology of Enterococcus # Pleuritic chest pain and SOB. Complaining to me of chest pain and shortness of breath. Awaiting factor Xa levels to assess dosing of Lovenox. For now will continue to treat pain needed. * unable to evaluate for DVT/PE * over weight limit for CT table, poor quality CXR/US * getting Lovenox 120mg BID at [facility] - under dose * increase Lovenox 200mg SubQ BID, check Factor Xa level 4 hours after Monday am dose # h/o PE/DVT and hypercoagulable state (anti-thrombin 3) * full anticoagulation as above * oral agent not approved in her weight range # Massive volume overload, elevated CO2 levels, IV Lasix discontinued and will start her on oral Lasix today * unable to do echo due to body habitus * In accurate intake I suspect patient not compliant in telling us her intake * In accurate weights, bed not accurate and she is so heavy we cannot even take her out of bed # Super Morbid Obesity BMI 93 # [place] - BIPAP qhs # Chronic respiratory failure due to OHS - 8L baseline # Tobacco dependence - patch # Skin breakdown - unlikely yeast per wound RN Subjective: Patient complaining of diffuse abdominal pain. This is not a new complaint but new this admission. Her last bowel movement was on Monday but she does not feel constipated. She does not complain of shortness of breath or chest pain today. Objective: Vital Signs Temp Pulse Resp BP Pulse Ox 36.6 C 95 18 123/71 H 92 08/29/16 11:44 08/29/16 11:44 08/29/16 11:44 08/29/16 11:44 08/29/16 11:44 Microbiology 08/28/16 16:00 Blood Panel (PCR) - Final Blood Enterococcus Species Nesha Parapsilosis Laboratory Results 08/29/16 04:22 08/29/16 04:22 08/28/16 08/29/16 08/30/16 05:59 05:59 05:59 Intake Total 2000 540 Output Total 9150 700 Balance -7150 -160 PT 15.8 SEC (12.0-15.0) H 08/27/16 21:50 INR 1.26 (0.83-1.16) H 08/27/16 21:50 - Physical Exam Constitutional: obese, uncomfortable Eyes: PERRL Ears, Nose, Mouth, Throat: moist mucous membranes Cardiovascular: regular rate and rhythym (Distant heart sounds) Respiratory: clear to auscultation, respiratory distress Gastrointestinal: normoactive bowel sounds, tenderness (Diffuse and difficult to localize due to her body habitus) Skin: warm Musculoskeletal: generalized weakness Neurologic: AAOx3 Psychiatric: flat affect ICD10 Worksheet Patient Problems: Problems Problem Status Onset Pneumonia Acute Chest pain Acute Morbid obesity Acute D-dimer, elevated Acute
[2016-08-30] MEDS: HYDROmorphONE/DILAUDID 1 MG/ML SYR IVP PRN ×7 (00:10→20:10)
[2016-08-30] MEDS: oxyCODONE IR 5 MG TAB PO PRN ×3 (02:30→21:35)
[2016-08-30] MEDS: VANCOMYCIN 1.25 GM in D5W 250 ML IV SCH ×2 (06:01→16:46)
[2016-08-30] MEDS: FLUCONAZOLE/NaCl 200 ML IV SCH (09:53)
[2016-08-30] MEDS: NICOTINE 21 MG/24 HR PATCH TD SCH (09:55)
[2016-08-30] MEDS: SENNOSIDES/DOCUSATE SODIUM TAB PO SCH ×2 (09:55→21:30)
[2016-08-30] MEDS: DOCUSATE SODIUM 100 MG CAP PO SCH ×2 (09:55→21:30)
[2016-08-30] MEDS: FUROSEMIDE 40 MG TAB PO SCH (11:00)
[2016-08-30] MEDS: ENOXAPARIN 100 MG/ML SYR SC SCH ×2 (11:01→22:03)
[2016-08-30] MEDS: HYDROmorphONE/DILAUDID 4 MG TAB PO PRN ×3 (11:01→21:35)
[2016-08-30 13:33] LABS: HEMATOCRIT 39.5 % (38.0-47.0); HEMOGLOBIN 11.5 g/dL (12.6-16.3); MEAN CELL HEMOGLOBIN 25.4 pg (27.9-34.1); MEAN CELL HEMOGLOBIN CONCENTR. 29.1 g/dL (32.4-36.7); MEAN CELL VOLUME 87.2 fL (81.5-99.8); RED BLOOD CELL COUNT 4.53 10^6/uL (4.18-5.33); RED CELL DISTRIBUTION WIDTH 16.4 % (11.5-15.2)
[2016-08-30 14:03] LABS: ANION GAP 10 mEq/L (8-16); CALCIUM 7.7 mg/dL (8.5-10.4); CARBON DIOXIDE 36 mEq/l (22-31); CHLORIDE 90 mEq/L (97-110); CREATININE 0.7 mg/dL (0.6-1.0); GLOMERULAR FILTRATION RATE > 60; GLUCOSE 155 mg/dL (70-100); POTASSIUM 3.1 mEq/L (3.5-5.2); SODIUM 136 mEq/L (134-144)
--- NOTE | 2016-08-30 17:20 | HOSPPROG ---
Hospitalist Progress Note Assessment/Plan: 36-year-old with morbid obesity and BMI greater than 60 complicated by chronic respiratory failure on 3 L oxygen at baseline. Is admitted with pleuritic chest pain. She has a history of recurrent PEs and DVTs. She developed fevers and has positive blood cultures with enterococcus and Nesha. Due to her body habitus is it is impossible to do any imaging to assist with evaluation. She does have a port placed for access which could be the cause of her bacteremia. Discussed with Dr. Lam Oconnell. # bacteremia with enterococcus and possibly Nesha. Discussed with Dr. Oconnell. Patient has a port and likely this is cause of her bacteremia * Continue Vanco * Fluconazole per Infectious Disease * Would need to consider discontinuation of port defer to ID * follow-up blood cultures done today # Pleuritic chest pain and SOB. Complaining to me of chest pain and shortness of breath. Awaiting factor Xa levels to assess dosing of Lovenox. For now will continue to treat pain needed. * unable to evaluate for DVT/PE * over weight limit for CT table, poor quality CXR/US * getting Lovenox 120mg BID at [facility] - under dose * increase Lovenox 200mg SubQ BID, we did check Factor Xa level 4 hours after her 3rd dose these are currently pending. # h/o PE/DVT and hypercoagulable state (anti-thrombin 3) * full anticoagulation as above * oral agent not approved in her weight range # Massive volume overload, elevated CO2 levels, Very difficult assessment for fluid status due to her obesity. She had been on IV Lasix which was changed to p.o. when her CO2 levels got elevated, will repeat BMP tomorrow if her CO2 level continues to decrease decrease could consider resuming IV Lasix will continue oral Lasix for now # Super Morbid Obesity BMI 93 # [place] - BIPAP qhs # Chronic respiratory failure due to OHS - 8L baseline # Tobacco dependence - patch # Skin breakdown - unlikely yeast per wound RN Subjective: complaining of ongoing chest pain although much more talkative and alert today. Also complains of pain in her "private parts" she feels her Carrillo is misplaced however after talking with the nurse she has refused them to evaluate this. Objective: Vital Signs Temp Pulse Resp BP Pulse Ox 37.1 C 85 12 131/80 H 97 08/30/16 15:01 08/30/16 15:01 08/30/16 15:01 08/30/16 15:01 08/30/16 15:01 Microbiology 08/28/16 16:00 Blood Panel (PCR) - Final Blood Enterococcus Species Nesha Parapsilosis Laboratory Results 08/30/16 13:30 08/30/16 13:30 08/29/16 08/30/16 08/31/16 05:59 05:59 05:59 Intake Total 540 600 500 Output Total 700 1300 1300 Balance -160 -700 -800 PT 15.8 SEC (12.0-15.0) H 08/27/16 21:50 INR 1.26 (0.83-1.16) H 08/27/16 21:50 - Physical Exam Constitutional: chronically ill appearing, obese, uncomfortable, unkempt Eyes: PERRL, anicteric sclera, EOMI Ears, Nose, Mouth, Throat: moist mucous membranes, hearing normal, ears appear normal Cardiovascular: regular rate and rhythym ( Difficult to assess due to distant heart sounds) Respiratory: no respiratory distress, reduced air movement Gastrointestinal: normoactive bowel sounds, other ( cannot assess for distension given her morbid obesity) Genitourinary: no bladder fullness, carrillo in urethra Skin: warm, normal color, other ( did not evaluate for pressure ulcers due to patient's morbid obesity) Musculoskeletal: generalized weakness Neurologic: AAOx3, No facial droop Psychiatric: interacting appropriately, anxious ICD10 Worksheet Patient Problems: Problems Problem Status Onset Pneumonia Acute Chest pain Acute Morbid obesity Acute D-dimer, elevated Acute
--- NOTE | 2016-08-30 17:49 | PCMIDPN ---
Assessment/Plan: Assessment/Plan: * Enterococcal bacteremia: 2/2 sets with growth of enterococcus which is vancomycin susceptible by BCID. Continue vancomycin. Repeat blood cultures to assess for clearing of bacteremia. If fails to clear, may require port removal. * Possible candidemia: 1/2 sets of blood cultures with Nesha parapsilosis by PCR but no growth of Nesha to date or yeast seen on Gram stain. Continue fluconazole. If growth of Nesha confirmed, will require port removal. 08/30/16 17:46 Subjective: Patient complains of bilateral upper chest pain Objective: Vital Signs Temp Pulse Resp BP Pulse Ox 37.1 C 85 12 131/80 H 97 08/30/16 15:01 08/30/16 15:01 08/30/16 15:01 08/30/16 15:01 08/30/16 15:01 Microbiology 08/28/16 16:00 Blood Panel (PCR) - Final Blood Enterococcus Species Nesha Parapsilosis Laboratory Results 08/30/16 13:30 08/30/16 13:30 08/29/16 08/30/16 08/31/16 05:59 05:59 05:59 Intake Total 540 600 500 Output Total 700 1300 1300 Balance -160 -700 -800 Vancomycin # 2 Fluconazole # 2 Vancomycin trough 12.4 Urine culture gram-negative leona x2 - Physical Exam General Appearance: alert, no apparent distress, obese EENT: No scleral icterus, No conjunctival petechiae Respiratory: lungs clear, No respiratory distress Cardiac/Chest: other (Port nontender without erythema) Abdomen: non-tender Skin: other (Erythema over both feet resolved) ICD10 Worksheet Patient Problems: Problems Problem Status Onset Chest pain Acute D-dimer, elevated Acute Morbid obesity Acute Pneumonia Acute
[2016-08-30] MEDS: clonazePAM 1 MG TAB PO PRN (21:35)
[2016-08-31] MEDS: HYDROmorphONE/DILAUDID 1 MG/ML SYR IVP PRN ×2 (02:42→04:44)
[2016-08-31] MEDS: VANCOMYCIN 1.25 GM in D5W 250 ML IV SCH ×2 (04:37→15:57)
[2016-08-31 05:18] LABS: HEMATOCRIT 37.4 % (38.0-47.0); HEMOGLOBIN 10.5 g/dL (12.6-16.3); MEAN CELL HEMOGLOBIN 25.5 pg (27.9-34.1); MEAN CELL VOLUME 90.8 fL (81.5-99.8); RED BLOOD CELL COUNT 4.12 10^6/uL (4.18-5.33); RED CELL DISTRIBUTION WIDTH 16.5 % (11.5-15.2)
[2016-08-31 05:32] LABS: MEAN CELL HEMOGLOBIN CONCENTR. 28.1 g/dL (32.4-36.7)
[2016-08-31] MEDS: HYDROmorphONE/DILAUDID 4 MG TAB PO PRN ×4 (08:00→20:38)
[2016-08-31] MEDS: SENNOSIDES/DOCUSATE SODIUM TAB PO SCH ×3 (08:00→20:38)
[2016-08-31] MEDS: DOCUSATE SODIUM 100 MG CAP PO SCH ×3 (08:01→20:38)
[2016-08-31] MEDS: NICOTINE 21 MG/24 HR PATCH TD SCH (08:01)
[2016-08-31] MEDS: FLUCONAZOLE/NaCl 200 ML IV SCH (08:01)
[2016-08-31 08:59] LABS: ANION GAP 8 mEq/L (8-16); CALCIUM 7.8 mg/dL (8.5-10.4); CARBON DIOXIDE 39 mEq/l (22-31); CHLORIDE 92 mEq/L (97-110); CREATININE 0.7 mg/dL (0.6-1.0); GLOMERULAR FILTRATION RATE > 60; GLUCOSE 121 mg/dL (70-100); POTASSIUM 3.3 mEq/L (3.5-5.2); SODIUM 139 mEq/L (134-144)
[2016-08-31] MEDS: FUROSEMIDE 40 MG TAB PO SCH (10:55)
[2016-08-31] MEDS: clonazePAM 1 MG TAB PO PRN (11:22)
[2016-08-31] MEDS: ENOXAPARIN 100 MG/ML SYR SC SCH ×2 (11:25→20:38)
--- NOTE | 2016-08-31 11:57 | PCMIDPN ---
Assessment/Plan: Assessment: Bacteremia with Enterococcus. Unclear source but port is in question. Patient also has positive PCR results for Nesha. This would definitely put the port in jeopardy if she has fungemia. However it is unclear that she has a clinically significant fungemia as no growth or g stain of fungus has been seen yet in culture. Follow-up blood cultures are negative thus far. She seems clinically stable on IV vancomycin monotherapy however she continues to have generalized body discomfort and pain. Her severe obesity clearly complicates matters. Plan: 1. Continue vancomycin monotherapy. 2. Follow up on repeat blood cultures. 3. Follow initial blood cultures for the late growth of Nesha species. If positive then the port will need to be surgically removed. Subjective: Patient is resting prone on her hospital bed. Her boyfriend is in the room. No new events or complaints. Patient states that she has pain and swelling in her feet that is greater than normal. Also complains of generalized joint discomfort. Objective: Vancomycin #3 Fluconazole #3 Vital Signs Temp Pulse Resp BP Pulse Ox 36.9 C 81 24 H 103/67 95 08/31/16 07:42 08/31/16 07:42 08/31/16 07:42 08/31/16 07:42 08/31/16 07:42 Microbiology 08/28/16 16:30 Urine Culture - Final Urine,Catheterized Citrobacter Freundii Proteus Mirabilis 08/28/16 16:00 Blood Panel (PCR) - Final Blood Enterococcus Species Nesha Parapsilosis Laboratory Results 08/31/16 04:30 08/31/16 08:10 08/30/16 08/31/16 09/01/16 05:59 05:59 05:59 Intake Total 600 500 Output Total 1300 2650 200 Balance -700 -2150 -200 - Physical Exam General Appearance: WD/WN, alert, no apparent distress, obese, non-toxic Respiratory: lungs clear (Distant), normal breath sounds (Distant), No respiratory distress Cardiac/Chest: regular rate, rhythm, No tachycardia Skin: normal color, warm/dry, No rash Neuro/Psych: alert, normal mood/affect, oriented x 3 ICD10 Worksheet Patient Problems: Problems Problem Status Onset Chest pain Acute D-dimer, elevated Acute Morbid obesity Acute Pneumonia Acute
[2016-08-31] MEDS: oxyCODONE IR 5 MG TAB PO PRN (13:30)
--- NOTE | 2016-08-31 15:10 | HOSPPROG ---
Hospitalist Progress Note Assessment/Plan: 36-year-old with morbid obesity and BMI greater than 60 complicated by chronic respiratory failure on 3 L oxygen at baseline. Is admitted with pleuritic chest pain. She has a history of recurrent PEs and DVTs. She developed fevers and has positive blood cultures with enterococcus and Nesha. Due to her body habitus is it is impossible to do any imaging to assist with evaluation. She does have a port placed for access which could be the cause of her bacteremia. Discussed with Dr. Lam Oconnell. # bacteremia with enterococcus and possibly Nesha- Discussed with Dr. Flowers - Patient has a port and likely this is cause of her bacteremia * Continue Vanco * Fluconazole per Infectious Disease * Would need to consider discontinuation of port - if nesha grows from cx * follow-up blood cultures positive today for enteroccocus # Pleuritic chest pain and SOB-Awaiting factor Xa levels to assess dosing of Lovenox- CXR (personally reviewed and interpreted) no clear infiltrates oxygen saturations 94% on CPAP with 10L * unable to evaluate for DVT/PE * over weight limit for CT table, poor quality CXR/US * getting Lovenox 120mg BID at [facility] - under dose * increase Lovenox 200mg SubQ BID, we did check Factor Xa level therapeutic per pharmacy * # h/o PE/DVT and hypercoagulable state (anti-thrombin 3) * full anticoagulation as above * oral agent not approved in her weight range # Massive volume overload, elevated CO2 levels, Very difficult assessment for fluid status due to her obesity. - cont PO lasix # Super Morbid Obesity BMI 93 # [place] - BIPAP qhs # Chronic respiratory failure due to OHS - 8L baseline # Tobacco dependence - patch # Skin breakdown - unlikely yeast per wound RN # dispo > 2MN as requiring IV abx and monitoring of cultures I have discussed the case with RN - we will dc IV dilaudid and use po pain meds Subjective: lots of pain Objective: Vital Signs Temp Pulse Resp BP Pulse Ox 36.5 C 85 15 106/81 H 90 L 08/31/16 12:06 08/31/16 12:06 08/31/16 12:06 08/31/16 12:06 08/31/16 12:06 Microbiology 08/28/16 16:30 Urine Culture - Final Urine,Catheterized Citrobacter Freundii Proteus Mirabilis 08/28/16 16:00 Blood Panel (PCR) - Final Blood Enterococcus Species Nesha Parapsilosis Laboratory Results 08/31/16 04:30 08/31/16 08:10 08/30/16 08/31/16 09/01/16 05:59 05:59 05:59 Intake Total 600 500 Output Total 1300 2650 200 Balance -700 -2150 -200 PT 15.8 SEC (12.0-15.0) H 08/27/16 21:50 INR 1.26 (0.83-1.16) H 08/27/16 21:50 - Physical Exam Constitutional: obese Eyes: anicteric sclera Ears, Nose, Mouth, Throat: moist mucous membranes Cardiovascular: regular rate and rhythym Respiratory: No expiratory wheeze, No inspiratory crackles Gastrointestinal: normoactive bowel sounds, soft, non-tender abdomen Genitourinary: no bladder fullness Skin: warm, normal color Musculoskeletal: No full muscle strength Neurologic: AAOx3 Psychiatric: depressed Lymph, Heme, Immunologic: no cervical LAD ICD10 Worksheet Patient Problems: Problems Problem Status Onset Chest pain Acute D-dimer, elevated Acute Morbid obesity Acute Pneumonia Acute
[2016-08-31] MEDS ORDERED: ENOXAPARIN 60 MG/0.6 ML SYR SC SCH (22:00)
[2016-09-01] MEDS: HYDROmorphONE/DILAUDID 4 MG TAB PO PRN ×5 (00:55→23:22)
[2016-09-01] MEDS: oxyCODONE IR 5 MG TAB PO PRN ×2 (03:18→19:37)
[2016-09-01] MEDS: VANCOMYCIN 1.25 GM in D5W 250 ML IV SCH ×2 (04:40→16:30)
[2016-09-01 05:03] LABS: HEMATOCRIT 38.9 % (38.0-47.0); HEMOGLOBIN 11.1 g/dL (12.6-16.3); MEAN CELL HEMOGLOBIN 25.3 pg (27.9-34.1); MEAN CELL VOLUME 88.8 fL (81.5-99.8); RED BLOOD CELL COUNT 4.38 10^6/uL (4.18-5.33); RED CELL DISTRIBUTION WIDTH 16.3 % (11.5-15.2)
[2016-09-01 05:07] LABS: MEAN CELL HEMOGLOBIN CONCENTR. 28.5 g/dL (32.4-36.7)
[2016-09-01 05:19] LABS: CALCIUM 8.2 mg/dL (8.5-10.4); CHLORIDE 93 mEq/L (97-110); CREATININE 0.7 mg/dL (0.6-1.0); GLOMERULAR FILTRATION RATE > 60; GLUCOSE 143 mg/dL (70-100); POTASSIUM 3.1 mEq/L (3.5-5.2); SODIUM 142 mEq/L (134-144)
[2016-09-01 05:34] LABS: ANION GAP 8 mEq/L (8-16)
[2016-09-01 05:35] LABS: CARBON DIOXIDE 41 mEq/l (22-31)
--- NOTE | 2016-09-01 09:42 | PCMIDPN ---
Assessment/Plan: Assessment/Plan: * Enterococcal bacteremia: 2/2 sets with growth of enterococcus which is vancomycin susceptible. Continue vancomycin. Repeat blood cultures pending to assess for clearing of bacteremia. * Candidemia: Repeat blood cultures 08/30/16 both with C. parapsilosis confirming initial PCR result. Will necessitate port removal which I have discussed with patient. Will place PICC line for access and consult surgery for port removal. * Positive urine culture: Suspect colonization. Will observe without further antibiotic therapy targeting organisms in urine culture. 09/01/16 09:39 Subjective: Patient without pain over port. Objective: Vital Signs Temp Pulse Resp BP Pulse Ox 36.7 C 73 17 131/69 H 95 09/01/16 09:14 09/01/16 09:14 09/01/16 09:14 09/01/16 09:14 09/01/16 09:14 Microbiology 08/28/16 16:00 Blood Panel (PCR) - Final Blood Enterococcus Species Nesha Parapsilosis 08/30/16 13:30 Blood Panel (PCR) - Final Blood Nesha Parapsilosis 08/28/16 16:30 Urine Culture - Final Urine,Catheterized Citrobacter Freundii Proteus Mirabilis Laboratory Results 09/01/16 04:40 09/01/16 04:40 08/31/16 09/01/16 09/02/16 05:59 05:59 05:59 Intake Total 500 2000 Output Total 2650 1470 Balance -2150 530 Vancomycin #4 Fluconazole #4 Blood cultures 08/30/16 2/2 C. parapsilosis Blood cultures 08/28/16 2/2 E. faecalis; 1/2 C. parapsilosis by PCR - Physical Exam General Appearance: alert, no apparent distress, obese EENT: other (BIPAP) Cardiac/Chest: other (small amount of erythema adjacent to port; nontender ) Abdomen: non-tender ICD10 Worksheet Patient Problems: Problems Problem Status Onset Chest pain Acute D-dimer, elevated Acute Morbid obesity Acute Pneumonia Acute
[2016-09-01] MEDS: FLUCONAZOLE/NaCl 200 ML IV SCH (10:47)
[2016-09-01] MEDS: NICOTINE 21 MG/24 HR PATCH TD SCH (10:47)
[2016-09-01] MEDS: DOCUSATE SODIUM 100 MG CAP PO SCH ×2 (10:48→19:37)
[2016-09-01] MEDS: FUROSEMIDE 40 MG TAB PO SCH (10:48)
[2016-09-01] MEDS: SENNOSIDES/DOCUSATE SODIUM TAB PO SCH ×2 (10:48→19:37)
[2016-09-01] MEDS: ENOXAPARIN 30 MG/0.3 ML SYR SC SCH (10:50)
[2016-09-01] MEDS: ENOXAPARIN 100 MG/ML SYR SC SCH (10:50)
--- NOTE | 2016-09-01 13:58 | HOSPPROG ---
Hospitalist Progress Note Assessment/Plan: 36-year-old with morbid obesity and BMI greater than 60 complicated by chronic respiratory failure on 3 L oxygen at baseline. Is admitted with pleuritic chest pain. She has a history of recurrent PEs and DVTs. She developed fevers and has positive blood cultures with enterococcus and Nesha. Due to her body habitus is it is impossible to do any imaging to assist with evaluation. She does have a port placed for access which could be the cause of her bacteremia. Discussed with Dr. Lam Oconnell. # bacteremia with enterococcus and Nesha- Discussed with Dr. Oconnell - repeat cultures growing nesha - alternate access needs to be established - port then removed - Continue IV Vanco - IV Fluconazole per Infectious Disease # Pleuritic chest pain and SOB-Awaiting factor Xa levels to assess dosing of Lovenox- CXR (personally reviewed and interpreted) no clear infiltrates oxygen saturations 94% on CPAP with 10L - unable to evaluate for DVT/PE - over weight limit for CT table, poor quality CXR/US - getting Lovenox 120mg BID at [facility] - suspected under dose - titrating Lovenox from 200mg SubQ BID pre Factor Xa levels - per pharmacy # h/o PE/DVT and hypercoagulable state (anti-thrombin 3) * full anticoagulation as above * oral agent not approved in her weight range # Massive volume overload, elevated CO2 levels, Very difficult assessment for fluid status due to her obesity. - cont PO lasix # Super Morbid Obesity BMI 93 # [place] - BIPAP qhs # Chronic respiratory failure due to OHS - 8L baseline # Tobacco dependence - patch # Skin breakdown - unlikely yeast per wound RN # dispo > 2MN as requiring IV abx and monitoring of cultures I have discussed the case ID - we will work on access today so we can safely remove port Subjective: didnt sleep well Objective: Vital Signs Temp Pulse Resp BP Pulse Ox 36.9 C 69 16 131/69 H 96 09/01/16 12:00 09/01/16 12:00 09/01/16 12:00 09/01/16 12:00 09/01/16 12:00 Microbiology 08/28/16 16:00 Blood Panel (PCR) - Final Blood Enterococcus Species Nesha Parapsilosis 08/30/16 13:30 Blood Panel (PCR) - Final Blood Nesha Parapsilosis 08/28/16 16:30 Urine Culture - Final Urine,Catheterized Citrobacter Freundii Proteus Mirabilis Laboratory Results 09/01/16 04:40 09/01/16 04:40 08/31/16 09/01/16 09/02/16 05:59 05:59 05:59 Intake Total 500 2000 Output Total 2650 1470 Balance -2150 530 PT 15.8 SEC (12.0-15.0) H 08/27/16 21:50 INR 1.26 (0.83-1.16) H 08/27/16 21:50 - Physical Exam Constitutional: obese Eyes: anicteric sclera Ears, Nose, Mouth, Throat: dry mucous membranes Cardiovascular: other (distant) Respiratory: No expiratory wheeze, No inspiratory crackles Gastrointestinal: normoactive bowel sounds Skin: erythema Musculoskeletal: No full muscle strength Neurologic: AAOx3 Psychiatric: depressed Lymph, Heme, Immunologic: no cervical LAD ICD10 Worksheet Patient Problems: Problems Problem Status Onset Chest pain Acute D-dimer, elevated Acute Morbid obesity Acute Pneumonia Acute
--- NOTE | 2016-09-01 15:06 | PDPCPN ---
Palliative Care Progress Note Assessment/Plan: Referring provider: Dr Moncada Reason for consult: Complex medical decision making Symptom control HPI: Roxanna Metcalf is a 36 o female with PMH morbid obesity, chronic resp failure, and DVT/PE admitted to the hospital from [facility] for chest pain. Thought to have recurrent PE but due to body status unable to complete diagnostic testing. Lovenox given and adjusted per pharmacy. Hospitalization complicated by fevers and + BC thought to be due to infected port. Palliative care consulted for complex medical decision making. Spoke with Roxanna and [place] at the bedside this afternoon. Roxanna stated she is not interested in any therapies for her weight. We spoke of her medical conditions and complications due to her obesity. Roxanna states everyone has a beginning and an ending and she is choosing her path in life because that is what she chooses. She states if it were up to her she would not have even come back to the hospital but BM brought her because "she was sick". She is not interested in many medical interventions to help prolong her life as she has accepted her prognosis as is. Assessment: Physical: - Pain: pleuritic chest pain - on dilaudid and oxy IR PO PRN - constipation - at risk if using opiates - continue bowel regimen with senna and colace Emotional/psychological: Has a lot of support from her . Antonia Ludwig is following Advanced Care Planning: Is patient decisional?: Yes Code Status: DNR MD POA: unsure, [place] is local support. Plan: She understands her obesity is causing complications that are leading to a poorer prognosis. She does not want a lot of medical interventions. 09/01/16 15:37 Subjective: I want to be left alone Objective: Social History: to [place] for 4 years. From [place]. Has a complicated history with past trauma Medication list reviewed ROS: General: fatigue ENT: negative Resp: negative GI: negative : carrillo MS: chest pain Skin: negative Neuro: negative Psych: negative Functional assessment: PPS: 30% Functional status: dependent on ADLs, IADLs Vital Signs Temp Pulse Resp BP Pulse Ox 36.9 C 69 16 131/69 H 96 09/01/16 12:00 09/01/16 12:00 09/01/16 12:00 09/01/16 12:00 09/01/16 12:00 Microbiology 08/28/16 16:00 Blood Panel (PCR) - Final Blood Enterococcus Species Nesha Parapsilosis 08/30/16 13:30 Blood Panel (PCR) - Final Blood Nesha Parapsilosis 08/28/16 16:30 Urine Culture - Final Urine,Catheterized Citrobacter Freundii Proteus Mirabilis Laboratory Results 09/01/16 04:40 09/01/16 04:40 08/31/16 09/01/16 09/02/16 05:59 05:59 05:59 Intake Total 500 2000 Output Total 2650 1470 Balance -2150 530 PT 15.8 SEC (12.0-15.0) H 08/27/16 21:50 INR 1.26 (0.83-1.16) H 08/27/16 21:50 Physical Exam - Physical Exam General Appearance: alert, no apparent distress Respiratory: No respiratory distress, No accessory muscle use Skin: normal color, warm/dry Neuro/Psych: alert, oriented x 3 ICD10 Worksheet Patient Problems: Problems Problem Status Onset Chest pain Acute D-dimer, elevated Acute Morbid obesity Acute Pneumonia Acute
--- NOTE | 2016-09-01 17:10 | SOAPPROG ---
SOAP Progress Note Assessment/Plan: Assessment: somewhat unhappy 36 female. morbidly obese with bmi 93/ now with fungicemia most likely 2/2 infected 2 year old port risks and options discussed with pt and who agree to proceed Plan:hold lovenox / port removal in am / central line placemrnt 09/01/16 17:07 Objective: Vital Signs Temp Pulse Resp BP Pulse Ox 36.7 C 66 15 130/73 H 97 09/01/16 16:16 09/01/16 16:16 09/01/16 16:16 09/01/16 16:16 09/01/16 16:16 Microbiology 08/28/16 16:00 Blood Panel (PCR) - Final Blood Enterococcus Species Nesha Parapsilosis 08/30/16 13:30 Blood Panel (PCR) - Final Blood Nesha Parapsilosis Laboratory Results 09/01/16 04:40 09/01/16 04:40 08/31/16 09/01/16 09/02/16 05:59 05:59 05:59 Intake Total 500 2000 Output Total 2650 1470 Balance -2150 530 PT 15.8 SEC (12.0-15.0) H 08/27/16 21:50 INR 1.26 (0.83-1.16) H 08/27/16 21:50 ICD10 Worksheet Patient Problems: Problems Problem Status Onset Chest pain Acute D-dimer, elevated Acute Morbid obesity Acute Pneumonia Acute
[2016-09-01] MEDS: clonazePAM 1 MG TAB PO PRN (19:37)
[2016-09-01] MEDS: ACETAMINOPHEN 325 MG TAB PO PRN (23:23)
[2016-09-02] MEDS: VANCOMYCIN 1.25 GM in D5W 250 ML IV SCH ×2 (05:08→17:58)
[2016-09-02 05:32] LABS: HEMATOCRIT 38.4 % (38.0-47.0); HEMOGLOBIN 10.7 g/dL (12.6-16.3); MEAN CELL HEMOGLOBIN 24.9 pg (27.9-34.1); MEAN CELL VOLUME 89.3 fL (81.5-99.8); RED BLOOD CELL COUNT 4.3 10^6/uL (4.18-5.33); RED CELL DISTRIBUTION WIDTH 16.6 % (11.5-15.2)
[2016-09-02 05:41] LABS: MEAN CELL HEMOGLOBIN CONCENTR. 27.9 g/dL (32.4-36.7)
[2016-09-02] MEDS: oxyCODONE IR 5 MG TAB PO PRN ×2 (07:25→21:54)
[2016-09-02] MEDS ORDERED: LIDOCAINE 1% 30 ML SDV ONE (07:35)
[2016-09-02] MEDS ORDERED: SODIUM BICARBONATE 10 MEQ/10 ML SYR IVP ONE (07:35)
[2016-09-02] MEDS ORDERED: BUPIVACAINE 0.5% 30 ML SDV ONE (07:35)
[2016-09-02] MEDS ORDERED: MIDAZOLAM 2 MG/2 ML VIAL ONE ×2 (08:08)
[2016-09-02] MEDS ORDERED: fentaNYL 100 MCG/2 ML INJ ONE (08:08)
[2016-09-02] MEDS ORDERED: PROPOFOL/EMULSION 500 MG/50 ML BOTTLE IV ONE (08:09)
[2016-09-02] MEDS ORDERED: DEXMEDETOMIDINE HCL 400 MCG in NS 100 ML IV ONE (09:00)
--- NOTE | 2016-09-02 12:46 | HOSPPROG ---
Hospitalist Progress Note Assessment/Plan: 36-year-old with morbid obesity and BMI greater than 60 complicated by chronic respiratory failure on 3 L oxygen at baseline. Is admitted with pleuritic chest pain. She has a history of recurrent PEs and DVTs. She developed fevers and has positive blood cultures with enterococcus and Nesha. Due to her body habitus is it is impossible to do any imaging to assist with evaluation. She does have a port placed for access which could be the cause of her bacteremia. # Bacteremia with enterococcus and Candidemia- pt with port - Dr Esparza to place IJ today in OR then remive port - Continue IV Vanco - IV Fluconazole per Infectious Disease # Pleuritic chest pain and SOB-Awaiting factor Xa levels to assess dosing of Lovenox- CXR - non-diagnostic oxygen saturations 94% on CPAP with 10L - unable to evaluate for DVT/PE- over weight limit for CT table, poor quality CXR/US - getting Lovenox 120mg BID at [facility] - suspected under dose - titrating Lovenox from 200mg SubQ BID pre Factor Xa levels - per pharmacy - discussed the HEME/ONC Dr. Gramajo- recommending warfarin - will start today # h/o PE/DVT and hypercoagulable state (anti-thrombin 3) EKG (personally reviewed and interpreted) low voltage sinus - lovenox as above and warfarin # Massive volume overload, elevated CO2 levels, Very difficult assessment for fluid status due to her obesity. - cont PO lasix # Super Morbid Obesity BMI 93 # [place] - BIPAP qhs # Chronic respiratory failure due to OHS - 8L baseline # Tobacco dependence - patch # Skin breakdown - unlikely yeast per wound RN # dispo > 2MN as requiring IV abx/antifungals and monitoring of cultures I have discussed the case HEME - we will start warfarin today Objective: Vital Signs Temp Pulse Resp BP Pulse Ox 37.1 C 77 17 118/88 H 97 09/02/16 12:05 09/02/16 12:05 09/02/16 12:05 09/02/16 12:05 09/02/16 12:05 Microbiology 08/28/16 16:00 Blood Panel (PCR) - Final Blood Enterococcus Species Nesha Parapsilosis 08/30/16 13:30 Blood Panel (PCR) - Final Blood Nesha Parapsilosis Laboratory Results 09/02/16 05:15 09/01/16 04:40 09/01/16 09/02/16 09/03/16 05:59 05:59 05:59 Intake Total 1999 1400 Output Total 1470 2100 Balance 530 -700 PT 15.8 SEC (12.0-15.0) H 08/27/16 21:50 INR 1.26 (0.83-1.16) H 08/27/16 21:50 - Physical Exam Constitutional: obese Eyes: anicteric sclera Ears, Nose, Mouth, Throat: dry mucous membranes Cardiovascular: regular rate and rhythym Respiratory: no respiratory distress Gastrointestinal: normoactive bowel sounds Genitourinary: carrillo in urethra Skin: warm Musculoskeletal: No full muscle strength Neurologic: AAOx3 Psychiatric: depressed Lymph, Heme, Immunologic: No petechiae ICD10 Worksheet Patient Problems: Problems Problem Status Onset Chest pain Acute D-dimer, elevated Acute Morbid obesity Acute Pneumonia Acute
[2016-09-02] MEDS: FLUCONAZOLE/NaCl 200 ML IV SCH (12:54)
[2016-09-02] MEDS: DOCUSATE SODIUM 100 MG CAP PO SCH ×2 (13:12→21:54)
[2016-09-02] MEDS: clonazePAM 1 MG TAB PO PRN (13:12)
[2016-09-02] MEDS: HYDROmorphONE/DILAUDID 4 MG TAB PO PRN ×2 (13:13→19:28)
[2016-09-02] MEDS: NICOTINE 21 MG/24 HR PATCH TD SCH (13:13)
[2016-09-02] MEDS: FUROSEMIDE 40 MG TAB PO SCH (13:13)
--- NOTE | 2016-09-02 15:20 | PCMIDPN ---
Assessment/Plan: Assessment: Bacteremia with Enterococcus as well as fungemia with Nesha. Her port is the obvious source now. Stable on IV vancomycin and fluconazole. Plan: 1. Continue vancomycin and fluconazole. 2. Port will require surgical removal. 09/02/16 22:50 09/02/16 22:51 Subjective: Patient sleeping in her bed. at bedside. Objective: Vancomycin # 5 Fluconazole # 5 Vital Signs Temp Pulse Resp BP Pulse Ox 36.6 C 81 19 109/73 98 09/02/16 12:37 09/02/16 13:58 09/02/16 13:58 09/02/16 13:58 09/02/16 13:58 Microbiology 09/02/16 11:00 Gram Stain - Final Other - Other 08/28/16 16:00 Blood Panel (PCR) - Final Blood Enterococcus Species Nesha Parapsilosis Laboratory Results 09/02/16 05:15 09/01/16 04:40 09/01/16 09/02/16 09/03/16 05:59 05:59 05:59 Intake Total 2000 1400 500 Output Total 1470 2100 400 Balance 530 -700 100 - Physical Exam General Appearance: WD/WN, no apparent distress, obese Extremities: non-tender, normal inspection Skin: normal color, warm/dry, No rash ICD10 Worksheet Patient Problems: Problems Problem Status Onset Chest pain Acute D-dimer, elevated Acute Morbid obesity Acute Pneumonia Acute
--- NOTE | 2016-09-02 15:33 | POSTOPPROG ---
Post Op Note Date of Operation: 09/02/16 Surgeon: Kvng Esparza Outpatient Case Manager: Lio Pope Anesthesiologist: Dr Johnson/Arjun Anesthesia: IV Sedation Pre-op Diagnosis: infected port, lack of IV access Post-op Diagnosis: same Indication: see above Procedure: removal of port, Right upper Ext line placement Findings: infected port Inf/Abcess present in the surg proc area at time of surgery?: Yes Depth: Deep Incisional (Fascial) EBL: Minimal Specimen(s): port sent for culture
[2016-09-02] MEDS: WARFARIN SODIUM 5 MG TAB PO ONE ×2 (18:03→18:05)
[2016-09-02] MEDS: SENNOSIDES/DOCUSATE SODIUM TAB PO SCH ×2 (18:07→21:54)
--- NOTE | 2016-09-02 19:58 | GCON ---
[f rep st] CONSULTATION DATE OF CONSULTATION: 09/01/2016 HISTORY OF PRESENT ILLNESS: Patient is a 36-year-old morbidly obese female who has a BMI greater th an 70, in fact reported at one place as 93. She has been admitted for evaluation of chest pain. Jose wolff was found to be septic with fungemia and appears to have an infected port, which has been in place for approximately 2 years. History is complicated by antithrombin III problem, for which she is on full dose Lovenox. Evaluation here at the hospital has been quite difficult because of her morbid obesity. She cannot sit in a CAT scan for evaluation for pulmonary emboli or other problems, and jose wolff is essentially unable to obtain a peripheral IV. I was asked to consult for removal of her infect ed port, but that will require intravenous access somewhere prior to removal of the port, since she needs continuous antibiotics. PAST MEDICAL HISTORY: Includes morbid obesity, antithrombin III deficiency, history of pulmonary em boli and DVT problems, chronic pain, osteoarthritis, chronic respiratory failure, immobility, depres kiersten and anxiety, sleep apnea, and arthritis. Has also had a cholecystectomy, hernia repair, C-sect ion, tube thoracostomies and an ORIF of her leg. REVIEW OF SYSTEMS: Reveals that she is a nonsmoker. Denies any present cardiac symptoms. Is other samuels negative except for the review of systems. ALLERGIES: Include penicillin, cephalosporin, fluoroquinolone, and sulfa. MEDICATIONS: Include oxycodone, Lovenox, Dilaudid, DuoNeb, MiraLAX, Phenergan, Klonopin, and Compaz ine. PHYSICAL EXAMINATION: GENERAL: Reveals an alert, but minimally cooperative 36-year-old morbidly ob gabe female. HEAD AND NECK: No icterus or adenopathy. CHEST Clear. She has a port in the left upper aspect of her chest, which is being used right now and gi ot be well examined. CARDIAC: Regular rhythm. ABDOMEN: Markedly obese with multiple stretch almazan . Appears to be soft and nontender. EXTREMITIES: Bilateral edema. They are sensitive to touch. There is some erythema in both feet. All her body folds are covered with fungal rashes. 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 We will need to get IV access. According to the patient and according to IR, PICC line is not po ssible. There is a question of whether her right internal jugular vein is open, for which we will n eed ultrasound to evaluate. We will need to hold her Lovenox and then proceed with surgery in the [facility]. Risks and options have been fully discussed, and I think that she agrees to proceed. /[id number]/MODL
--- NOTE | 2016-09-02 20:49 | GOP ---
[f rep st] OPERATIVE REPORT DATE OF OPERATION: SURGEON: Kvng Esparza MD PREOPERATIVE DIAGNOSIS: Infected port with fungemia. POSTOPERATIVE DIAGNOSIS: Infected port with fungemia. PROCEDURE PERFORMED: 1. Ultrasound-guided upper extremity IV placement. 2. Removal of infected port from the left subclavian area. FINDINGS: DESCRIPTION OF PROCEDURE: Patient was taken to the operating room where she received IV sedation an d monitored anesthesia care by Dr. Clark and Dr. Johnson. She was kept in her bed in the supine po sition, prepped and draped in the usual sterile fashion. Using ultrasound, the antecubital vein was identified, which extended several centimeters up the arm. Basilic vein did not appear to be paten t up higher in the arm but was an excellent venous option in that area. Using ultrasound guidance, needle access was made to the vein, a guidewire was introduced, dilator was passed through the guide wire, and a flexible catheter was passed proximally 5 inches up the vein. It was secured to the exi t site with multiple silk sutures. The vein flowed readily. The IV functioned readily, and she shanika erated that portion of the procedure. This was done with some 1% Xylocaine local infiltration. Attention was then turned to the port site, which was decannulated. It was prepped and draped in th e usual sterile fashion. Using 1% Xylocaine local infiltration, a transverse incision was made at t he base of the port. Dissection extended through the subcutaneous tissue down to the port capsule, which was incised. The port was grasped with a towel clip and easily removed without difficulties. Wound was irrigated, the port was sent for cultures, and the wound was packed with iodoform gauze a nd infiltrated with 0.5% Marcaine. She tolerated procedure well. There were no complications. She was taken to the recovery room in good condition. /[id number]/MODL
[2016-09-02] MEDS: ENOXAPARIN 30 MG/0.3 ML SYR SC SCH (21:55)
[2016-09-02] MEDS: ENOXAPARIN 100 MG/ML SYR SC SCH (21:56)
[2016-09-03] MEDS: clonazePAM 1 MG TAB PO PRN (03:46)
[2016-09-03] MEDS: HYDROmorphONE/DILAUDID 4 MG TAB PO PRN ×4 (03:46→13:45)
[2016-09-03] MEDS: VANCOMYCIN 1.25 GM in D5W 250 ML IV SCH ×2 (03:48→16:26)
[2016-09-03] MEDS: oxyCODONE IR 5 MG TAB PO PRN ×3 (07:39→21:50)
[2016-09-03] MEDS: SENNOSIDES/DOCUSATE SODIUM TAB PO SCH ×2 (07:41→21:50)
[2016-09-03] MEDS: DOCUSATE SODIUM 100 MG CAP PO SCH ×2 (07:41→21:50)
[2016-09-03] MEDS: FUROSEMIDE 40 MG TAB PO SCH (07:42)
[2016-09-03] MEDS: NICOTINE 21 MG/24 HR PATCH TD SCH (07:43)
[2016-09-03] MEDS: FLUCONAZOLE/NaCl 200 ML IV SCH (08:00)
--- NOTE | 2016-09-03 08:36 | SOAPPROG ---
SOAP Progress Note Assessment/Plan: Assessment/Plan: 36yo F s/p infected port removal, placement of IV in OR - Change packing today, WMichell man - had some issues with IV this AM, I took the dressing down and repositioned and the IV appears to be working well. Need to protect this as this is our only IV and finding another access site would be near impossible. 09/03/16 08:34 Subjective: Grumpy Objective: Vital Signs Temp Pulse Resp BP Pulse Ox 36.5 C 87 20 108/66 92 09/03/16 08:00 09/03/16 08:00 09/03/16 08:00 09/03/16 08:00 09/03/16 08:00 Microbiology 09/02/16 11:00 Gram Stain - Final Other - Other Laboratory Results 09/02/16 05:15 09/01/16 04:40 09/02/16 09/03/16 09/04/16 05:59 05:59 05:59 Intake Total 1400 1700 Output Total 2100 1805 Balance -700 -105 PT 15.8 SEC (12.0-15.0) H 08/27/16 21:50 INR 1.26 (0.83-1.16) H 08/27/16 21:50 ICD10 Worksheet Patient Problems: Problems Problem Status Onset Chest pain Acute D-dimer, elevated Acute Morbid obesity Acute Pneumonia Acute
[2016-09-03] MEDS: ENOXAPARIN 30 MG/0.3 ML SYR SC SCH ×2 (10:38→21:51)
[2016-09-03] MEDS: ENOXAPARIN 100 MG/ML SYR SC SCH ×2 (10:39→21:51)
--- NOTE | 2016-09-03 12:57 | HOSPPROG ---
Hospitalist Progress Note Assessment/Plan: 36-year-old with morbid obesity and BMI greater than 60 complicated by chronic respiratory failure on 3 L oxygen at baseline. Is admitted with pleuritic chest pain. She has a history of recurrent PEs and DVTs. She developed fevers and has positive blood cultures with enterococcus and Nesha. Due to her body habitus is it is impossible to do any imaging to assist with evaluation. She does have a port placed for access which could be the cause of her bacteremia. # Bacteremia with enterococcus and Candidemia- last Bcx - positive for enterococcus and nesha US neck (personally reviewed and interpreted) no distinct vessels seen for IJ access - Dr Esparza removed port yesterday - peripheral IV placed in right arm - Continue IV Vanco - continue IV Fluconazole - access is a serious issue for this patient - tenuous # Pleuritic chest pain and SOB- previously using factor Xa levels to assess dosing of Lovenox- no access for labs currently oxygen saturations 94% on CPAP with 10L - unable to evaluate for DVT/PE- over weight limit for CT table, poor quality CXR/US - getting Lovenox 120mg BID at [facility] - suspected under dose - titrating Lovenox from 200mg SubQ BID to 130 BID using Factor Xa levels at 1.09- will resume this dose - discussed the HEME/ONC Dr. Gramajo- recommending warfarin - patient refusing # h/o PE/DVT and hypercoagulable state (anti-thrombin 3) EKG (personally reviewed and interpreted) low voltage sinus - lovenox as above - pt refusing warfarin # Massive volume overload, elevated CO2 levels, Very difficult assessment for fluid status due to her obesity. - cont PO lasix # Super Morbid Obesity BMI 93 # [place] - BIPAP qhs # Chronic respiratory failure due to OHS - 8L baseline # Tobacco dependence - patch # Skin breakdown - unlikely yeast per wound RN # dispo > 2MN as requiring IV abx/antifungals and monitoring of cultures I have discussed the case RN - patient refusing warfarin - we have no ability to monitor Xa levels will continue with 130mg BID Lovenox dose for now Subjective: chest pain and uncomfortable carrillo Objective: Vital Signs Temp Pulse Resp BP Pulse Ox 36.5 C 85 22 H 109/68 95 09/03/16 08:00 09/03/16 12:00 09/03/16 12:00 09/03/16 12:00 09/03/16 12:00 Microbiology 09/02/16 11:00 Gram Stain - Final Other - Other 08/28/16 16:00 Blood Culture - Final Blood Enterococcus Faecalis Nesha Parapsilosis Blood Panel (PCR) - Final Enterococcus Species Nesha Parapsilosis 08/28/16 16:00 Blood Culture - Final Blood Enterococcus Faecalis 08/30/16 13:30 Blood Panel (PCR) - Final Blood Nesha Parapsilosis Laboratory Results 09/02/16 05:15 09/01/16 04:40 09/02/16 09/03/16 09/04/16 05:59 05:59 05:59 Intake Total 1400 1700 Output Total 2100 1805 Balance -700 -105 PT 15.8 SEC (12.0-15.0) H 08/27/16 21:50 INR 1.26 (0.83-1.16) H 08/27/16 21:50 - Physical Exam Constitutional: obese Eyes: anicteric sclera Ears, Nose, Mouth, Throat: moist mucous membranes Cardiovascular: other (distant) Respiratory: no respiratory distress Gastrointestinal: No guarding Genitourinary: carrillo in urethra Skin: erythema Musculoskeletal: No asymmetric calves Neurologic: AAOx3 Psychiatric: depressed Lymph, Heme, Immunologic: No petechiae ICD10 Worksheet Patient Problems: Problems Problem Status Onset Chest pain Acute D-dimer, elevated Acute Morbid obesity Acute Pneumonia Acute
--- NOTE | 2016-09-03 15:27 | PCMIDPN ---
Assessment/Plan: Assessment: Bacteremia with Enterococcus as well as fungemia with Nesha. Stable on IV vancomycin and fluconazole. Now the port is removed, patient will need at least 2-4 weeks of coverage with vancomycin fluconazole post removal. The concern is now how to maintain IV access in this patient for repeat blood cultures and medications. Plan: 1. Continue vancomycin and fluconazole. 2. Discuss with surgery about continued IV access. Only remaining IV access is a right antecubital peripheral IV. Subjective: Patient continues to maintain that she hurts all over. Her biggest complaint is sore feet bilaterally. No fevers. Objective: Vancomycin #6 Fluconazole #6 Vital Signs Temp Pulse Resp BP Pulse Ox 37.1 C 86 12 117/67 97 09/03/16 15:02 09/03/16 15:02 09/03/16 15:02 09/03/16 15:02 09/03/16 15:02 Microbiology 09/02/16 11:00 Gram Stain - Final Other - Other 08/30/16 13:30 Blood Panel (PCR) - Final Blood Nesha Parapsilosis 08/28/16 16:00 Blood Culture - Final Blood Enterococcus Faecalis Nesha Parapsilosis Blood Panel (PCR) - Final Enterococcus Species Nesha Parapsilosis 08/28/16 16:00 Blood Culture - Final Blood Enterococcus Faecalis Laboratory Results 09/02/16 05:15 09/01/16 04:40 09/02/16 09/03/16 09/04/16 05:59 05:59 05:59 Intake Total 1400 1700 Output Total 2100 1805 1500 Balance -700 -105 -1500 - Physical Exam General Appearance: WD/WN, alert, obese, non-toxic Respiratory: lungs clear, normal breath sounds (But distant), No wheezing Cardiac/Chest: regular rate, rhythm, No tachycardia Extremities: pedal edema, erythema, No non-tender, No normal inspection Skin: normal color, warm/dry, rash Neuro/Psych: alert, normal mood/affect, oriented x 3 ICD10 Worksheet Patient Problems: Problems Problem Status Onset Chest pain Acute D-dimer, elevated Acute Morbid obesity Acute Pneumonia Acute
[2016-09-04] MEDS: VANCOMYCIN 1.25 GM in D5W 250 ML IV SCH ×2 (08:09→16:54)
[2016-09-04] MEDS: SENNOSIDES/DOCUSATE SODIUM TAB PO SCH ×2 (09:07→21:36)
[2016-09-04] MEDS: NICOTINE 21 MG/24 HR PATCH TD SCH (09:07)
[2016-09-04] MEDS: FUROSEMIDE 40 MG TAB PO SCH (09:07)
[2016-09-04] MEDS: ENOXAPARIN 100 MG/ML SYR SC SCH ×2 (09:08→21:38)
[2016-09-04] MEDS: FLUCONAZOLE/NaCl 200 ML IV SCH (09:08)
[2016-09-04] MEDS: ENOXAPARIN 30 MG/0.3 ML SYR SC SCH ×2 (09:08→21:38)
[2016-09-04] MEDS: DOCUSATE SODIUM 100 MG CAP PO SCH ×2 (09:08→21:36)
[2016-09-04] MEDS: oxyCODONE IR 5 MG TAB PO PRN ×3 (09:08→21:37)
[2016-09-04] MEDS: HYDROmorphONE/DILAUDID 4 MG TAB PO PRN ×4 (09:13→21:37)
[2016-09-04] MEDS ORDERED: HYDROmorphONE/DILAUDID 1 MG/ML SYR IVP ONE (10:52)
--- NOTE | 2016-09-04 10:58 | HOSPPROG ---
Hospitalist Progress Note Assessment/Plan: 36-year-old with morbid obesity and BMI greater than 60 complicated by chronic respiratory failure on 3 L oxygen at baseline. Is admitted with pleuritic chest pain. She has a history of recurrent PEs and DVTs. She developed fevers and has positive blood cultures with enterococcus and Nesha. Due to her body habitus is it is impossible to do any imaging to assist with evaluation. She does have a port placed for access which could be the cause of her bacteremia. # Bacteremia with enterococcus and Candidemia- last Bcx - positive for enterococcus and nesha US neck (personally reviewed and interpreted) no distinct vessels seen for IJ access Dr Esparza removed port 09/02 and peripheral IV placed in right arm - Continue IV Vanco - continue IV Fluconazole - access is a serious issue for this patient - very tenuous # Pleuritic chest pain and SOB- previously using factor Xa levels to assess dosing of Lovenox- no access for labs currently oxygen saturations 91% on CPAP with 9L - EKG (personally reviewed and interpreted) sinus rhythm low voltage no acute STT changes unable to evaluate for DVT/PE- over weight limit for CT table, poor quality CXR/US- getting Lovenox 120mg BID at [facility] - suspected under dose - titrating Lovenox from 200mg SubQ BID to 130 BID using Factor Xa levels at 1.09- will continue this dose - discussed the HEME/ONC Dr. Gramajo- recommending warfarin - patient refusing # h/o PE/DVT and hypercoagulable state (anti-thrombin 3) EKG (personally reviewed and interpreted) low voltage sinus - lovenox as above - pt refusing warfarin # Massive volume overload, elevated CO2 levels, Very difficult assessment for fluid status due to her obesity. - cont PO lasix # constipation - patient refusing bowel regimen- have schedule several meds # Super Morbid Obesity BMI 93 # [place] - BIPAP qhs # Chronic respiratory failure due to OHS - 8L baseline # Tobacco dependence - patch # Skin breakdown - unlikely yeast per wound RN # dispo > 2MN as requiring IV abx/antifungals and monitoring of cultures I have discussed the case with ID -will likely need 2 weeks of abx from date of port removal Subjective: carrillo pain and sever pain with dressing change Objective: Vital Signs Temp Pulse Resp BP Pulse Ox 36.9 C 76 22 H 102/75 98 09/04/16 08:00 09/04/16 08:00 09/04/16 08:00 09/04/16 08:00 09/04/16 08:00 Microbiology 08/30/16 13:30 Blood Panel (PCR) - Final Blood Nesha Parapsilosis 09/02/16 11:00 Gram Stain - Final Other - Other 08/28/16 16:00 Blood Culture - Final Blood Enterococcus Faecalis Nesha Parapsilosis Blood Panel (PCR) - Final Enterococcus Species Nesha Parapsilosis 08/28/16 16:00 Blood Culture - Final Blood Enterococcus Faecalis Laboratory Results 09/02/16 05:15 09/01/16 04:40 09/03/16 09/04/16 09/05/16 05:59 05:59 05:59 Intake Total 1700 1000 Output Total 1805 2550 Balance -105 -1550 PT 15.8 SEC (12.0-15.0) H 08/27/16 21:50 INR 1.26 (0.83-1.16) H 08/27/16 21:50 - Physical Exam Constitutional: obese Eyes: anicteric sclera Ears, Nose, Mouth, Throat: moist mucous membranes Cardiovascular: regular rate and rhythym, other (distant) Respiratory: No expiratory wheeze, No inspiratory crackles Gastrointestinal: No guarding Genitourinary: carrillo in urethra Skin: warm Musculoskeletal: No asymmetric calves Neurologic: AAOx3 Psychiatric: depressed Lymph, Heme, Immunologic: No petechiae ICD10 Worksheet Patient Problems: Problems Problem Status Onset Chest pain Acute D-dimer, elevated Acute Morbid obesity Acute Pneumonia Acute
[2016-09-04] MEDS: BISACODYL 10 MG SUPP PR PRN (11:59)
[2016-09-04] MEDS: NICOTINE POLACRILEX 2 MG GUM B PRN (11:59)
--- NOTE | 2016-09-04 16:19 | PCMIDPN ---
Assessment/Plan: Assessment: Bacteremia with Enterococcus as well as fungemia with Nesha. Stable on IV vancomycin and fluconazole. Now the port is removed, patient will need at least 2-4 weeks of coverage with vancomycin fluconazole post removal. The concern is now how to maintain IV access in this patient for repeat blood cultures and medications. Plan: 1. Continue vancomycin and fluconazole. 2. Discuss with surgery about continued IV access. Only remaining IV access is a right antecubital peripheral IV. Subjective: Patient continues to complain of malaise. No specific febrile events. Continues to complain of pain and swelling in both feet. Objective: Vancomycin #7 Fluconazole #7 Vital Signs Temp Pulse Resp BP Pulse Ox 36.8 C 77 18 99/59 L 98 09/04/16 15:21 09/04/16 15:21 09/04/16 15:21 09/04/16 15:21 09/04/16 15:21 Microbiology 09/02/16 11:00 Gram Stain - Final Other - Other 08/30/16 13:30 Blood Panel (PCR) - Final Blood Nesha Parapsilosis Laboratory Results 09/02/16 05:15 09/01/16 04:40 09/03/16 09/04/16 09/05/16 05:59 05:59 05:59 Intake Total 1700 1000 Output Total 1805 2550 1600 Balance -105 -1550 -1600 - Physical Exam General Appearance: WD/WN, alert, obese, non-toxic Respiratory: lungs clear, normal breath sounds (But distant), No crackles Cardiac/Chest: regular rate, rhythm, No tachycardia Extremities: pedal edema, erythema, No non-tender, No normal inspection Skin: normal color, warm/dry, rash Neuro/Psych: alert, normal mood/affect, oriented x 3 ICD10 Worksheet Patient Problems: Problems Problem Status Onset Chest pain Acute D-dimer, elevated Acute Morbid obesity Acute Pneumonia Acute
[2016-09-04] MEDS: clonazePAM 1 MG TAB PO PRN (21:37)
[2016-09-05] MEDS: VANCOMYCIN 1.25 GM in D5W 250 ML IV SCH ×2 (03:55→16:54)
[2016-09-05] MEDS: HYDROmorphONE/DILAUDID 4 MG TAB PO PRN ×5 (04:13→21:23)
[2016-09-05] MEDS: clonazePAM 1 MG TAB PO PRN ×2 (07:44→17:05)
[2016-09-05] MEDS: oxyCODONE IR 5 MG TAB PO PRN ×2 (07:51→21:24)
[2016-09-05] MEDS: FLUCONAZOLE/NaCl 200 ML IV SCH (09:20)
[2016-09-05] MEDS: NICOTINE 21 MG/24 HR PATCH TD SCH (09:48)
[2016-09-05] MEDS: ENOXAPARIN 100 MG/ML SYR SC SCH ×2 (09:49→21:24)
[2016-09-05] MEDS: ENOXAPARIN 30 MG/0.3 ML SYR SC SCH ×2 (09:50→21:24)
[2016-09-05] MEDS: FUROSEMIDE 40 MG TAB PO SCH (09:52)
[2016-09-05] MEDS: POLYETHYLENE GLYCOL 3350 17 GM PKT PO SCH (09:52)
[2016-09-05] MEDS: MAGNESIUM HYDROXIDE 30 ML UDCUP PO SCH (09:52)
[2016-09-05] MEDS: DOCUSATE SODIUM 100 MG CAP PO SCH ×2 (09:52→21:24)
[2016-09-05] MEDS: SENNOSIDES/DOCUSATE SODIUM TAB PO SCH ×2 (09:52→21:24)
--- NOTE | 2016-09-05 09:56 | SOAPPROG ---
SOAP Progress Note Assessment/Plan: Assessment: somewhat unhappy 36 female. morbidly obese with bmi 93/ now with fungicemia most likely 2/2 infected 2 year old port risks and options discussed with pt and who agree to proceed Plan:hold lovenox / port removal in am / central line placemrnt 09/01/16 17:07 09/05/16 09:54 difficult to assess jugular veins for use for new port/ will need to try in OR when scheduled for surgery/ afebrile Objective: Vital Signs Temp Pulse Resp BP Pulse Ox 36.7 C 80 12 100/83 H 93 09/05/16 07:38 09/05/16 07:38 09/05/16 07:38 09/05/16 07:38 09/05/16 07:38 Microbiology 09/02/16 11:00 Gram Stain - Final Other - Other Laboratory Results 09/02/16 05:15 09/01/16 04:40 09/04/16 09/05/16 09/06/16 05:59 05:59 05:59 Intake Total 1000 2700 Output Total 2550 2600 Balance -1550 100 PT 15.8 SEC (12.0-15.0) H 08/27/16 21:50 INR 1.26 (0.83-1.16) H 08/27/16 21:50 ICD10 Worksheet Patient Problems: Problems Problem Status Onset Chest pain Acute D-dimer, elevated Acute Morbid obesity Acute Pneumonia Acute
--- NOTE | 2016-09-05 15:22 | PCMIDPN ---
Assessment/Plan: Assessment/Plan: * Enterococcal bacteremia: Now status post port removal. Difficult to assess for clearing of bacteremia based on access. Continue vancomycin. Will attempt to obtain vancomycin trough and basic metabolic panel from peripheral IV. Significance of Staph epidermidis and Abiotrophia unclear. Should be covered by vancomycin therapy. * Candidemia: Continue fluconazole. Timing of new port will likely be dictated by durability of peripheral IV as once this is loss will necessitate central access. * Positive urine culture: Suspect colonization. Will observe without further antibiotic therapy targeting organisms in urine culture. 09/05/16 15:19 09/05/16 15:24 09/05/16 15:25 Subjective: Patient complains of hurting all over. Objective: Vital Signs Temp Pulse Resp BP Pulse Ox 36.6 C 79 17 115/80 100 09/05/16 11:23 09/05/16 11:23 09/05/16 11:23 09/05/16 11:23 09/05/16 11:23 Microbiology 09/02/16 11:00 Gram Stain - Final Other - Other 08/30/16 13:30 Blood Panel (PCR) - Final Blood Nesha Parapsilosis Laboratory Results 09/02/16 05:15 09/01/16 04:40 09/04/16 09/05/16 09/06/16 05:59 05:59 05:59 Intake Total 1000 2700 Output Total 2550 2600 1600 Balance -1550 100 -1600 Vancomycin # 8 Fluconazole # 8 Culture findings reviewed - Physical Exam General Appearance: alert, no apparent distress, obese (Morbidly), non-toxic EENT: No scleral icterus Extremities: No inflammation (Right antecubital IV site without phlebitis) Neuro/Psych: No confused ICD10 Worksheet Patient Problems: Problems Problem Status Onset Chest pain Acute D-dimer, elevated Acute Morbid obesity Acute Pneumonia Acute
--- NOTE | 2016-09-05 16:03 | HOSPPROG ---
Hospitalist Progress Note Assessment/Plan: 36-year-old female new to my care 09/05/16 with morbid obesity and BMI greater than 60 complicated by chronic respiratory failure on 3 L oxygen at baseline. Is admitted with pleuritic chest pain. She has a history of recurrent PEs and DVTs. She developed fevers and has positive blood cultures with enterococcus and Nesha. Due to her body habitus is it is impossible to do any imaging to assist with evaluation. She does have a port placed for access which could be the cause of her bacteremia. # Bacteremia with enterococcus and Candidemia- last Bcx - positive for enterococcus and nesha US neck (personally reviewed and interpreted) no distinct vessels seen for IJ access Dr Esparza removed port 09/02 and peripheral IV placed in right arm - Continue IV Vanco - continue IV Fluconazole - Await surgical line placement by Dr. Esparza # Pleuritic chest pain and SOB (improving)- previously using factor Xa levels to assess dosing of Lovenox- no access for labs currently oxygen saturations 91% on CPAP with 9L - EKG (personally reviewed and interpreted) sinus rhythm low voltage no acute STT changes unable to evaluate for DVT/PE- over weight limit for CT table, poor quality CXR/US- getting Lovenox 120mg BID at [facility] - suspected under dose - titrating Lovenox from 200mg SubQ BID to 130 BID using Factor Xa levels at 1.09- will continue this dose - discussed the HEME/ONC Dr. Gramajo- recommending warfarin - patient refusing # h/o PE/DVT and hypercoagulable state (anti-thrombin 3) - lovenox as above - pt refusing warfarin # Massive volume overload, elevated CO2 levels, Very difficult assessment for fluid status due to her obesity. - will increase PO lasix # constipation - patient refusing bowel regimen- have schedule several meds # Morbid Obesity BMI 93 # [place] - BIPAP qhs # Chronic respiratory failure due to OHS - 8L baseline # Tobacco dependence - patch # Skin breakdown - unlikely yeast per wound RN # dispo > 2MN as requiring IV abx/antifungals and monitoring of cultures I have discussed the case with ID -will likely need 2 weeks of abx from date of port removal Subjective: no chest pain. no fevers or chills Objective: Vital Signs Temp Pulse Resp BP Pulse Ox 37.2 C 80 13 108/57 L 94 09/05/16 15:26 09/05/16 15:26 09/05/16 15:26 09/05/16 15:26 09/05/16 15:26 Microbiology 08/30/16 13:30 Blood Panel (PCR) - Final Blood Nesha Parapsilosis 09/02/16 11:00 Gram Stain - Final Other - Other Laboratory Results 09/02/16 05:15 09/01/16 04:40 09/04/16 09/05/16 09/06/16 05:59 05:59 05:59 Intake Total 1000 2700 Output Total 2550 2600 3000 Balance -1550 100 -3000 PT 15.8 SEC (12.0-15.0) H 08/27/16 21:50 INR 1.26 (0.83-1.16) H 08/27/16 21:50 - Physical Exam Cardiovascular: regular rate and rhythym, no murmur, rub, or gallop, edema ( bilat pedal) Respiratory: no respiratory distress, no rales or rhonchi, clear to auscultation Gastrointestinal: normoactive bowel sounds, soft, non-tender abdomen, no palpable masses, No guarding, No rebound Skin: no rashes or abrasions, no fluctuance, no induration Neurologic: AAOx3, CN II-XII Intact, No facial droop ICD10 Worksheet Patient Problems: Problems Problem Status Onset Pneumonia Acute Chest pain Acute Morbid obesity Acute D-dimer, elevated Acute
[2016-09-06] MEDS: VANCOMYCIN 1.25 GM in D5W 250 ML IV SCH ×2 (05:17→16:25)
[2016-09-06] MEDS: oxyCODONE IR 5 MG TAB PO PRN ×2 (07:20→22:39)
[2016-09-06] MEDS: HYDROmorphONE/DILAUDID 4 MG TAB PO PRN ×2 (07:20→14:16)
[2016-09-06] MEDS: FUROSEMIDE 40 MG TAB PO SCH ×2 (08:44→11:31)
[2016-09-06] MEDS: POTASSIUM CL 20 MEQ/15 ML UDCUP PO SCH ×2 (08:57→11:32)
[2016-09-06] MEDS: DOCUSATE SODIUM 100 MG CAP PO SCH ×2 (08:59→21:54)
[2016-09-06] MEDS: FLUCONAZOLE/NaCl 200 ML IV SCH (08:59)
[2016-09-06] MEDS: SENNOSIDES/DOCUSATE SODIUM TAB PO SCH ×2 (08:59→21:54)
[2016-09-06] MEDS: NICOTINE 21 MG/24 HR PATCH TD SCH (09:03)
[2016-09-06] MEDS: MAGNESIUM HYDROXIDE 30 ML UDCUP PO SCH (09:05)
[2016-09-06] MEDS: POLYETHYLENE GLYCOL 3350 17 GM PKT PO SCH (09:06)
[2016-09-06] MEDS: ENOXAPARIN 100 MG/ML SYR SC SCH ×4 (09:22→23:08)
[2016-09-06] MEDS: ENOXAPARIN 30 MG/0.3 ML SYR SC SCH ×4 (09:22→23:08)
[2016-09-06] MEDS: clonazePAM 1 MG TAB PO PRN ×2 (09:26→22:38)
[2016-09-06] MEDS ORDERED: HYDROmorphONE/DILAUDID 2 MG/ML INJ ONE (10:38)
[2016-09-06] MEDS ORDERED: HYDROmorphONE/DILAUDID 2 MG/ML INJ IVP ONE (11:00)
--- NOTE | 2016-09-06 13:47 | HOSPPROG ---
Hospitalist Progress Note Assessment/Plan: 36-year-old female new to my care 09/05/16 with morbid obesity and BMI greater than 60 complicated by chronic respiratory failure on 3 L oxygen at baseline. Is admitted with pleuritic chest pain. She has a history of recurrent PEs and DVTs. She developed fevers and has positive blood cultures with enterococcus and Nesha. Due to her body habitus is it is impossible to do any imaging to assist with evaluation. She does have a port placed for access which could be the cause of her bacteremia. # Bacteremia with enterococcus and Candidemia- last Bcx - positive for enterococcus and nesha US neck (personally reviewed and interpreted) no distinct vessels seen for IJ access Dr Esparza removed port 09/02 and peripheral IV placed in right arm - Continue IV Vanco - continue IV Fluconazole - Await surgical line placement by Dr. Esparza # Pleuritic chest pain and SOB (improving)- previously using factor Xa levels to assess dosing of Lovenox- no access for labs currently oxygen saturations 91% on CPAP with 9L - EKG (personally reviewed and interpreted) sinus rhythm low voltage no acute STT changes unable to evaluate for DVT/PE- over weight limit for CT table, poor quality CXR/US- getting Lovenox [facility]mg BID at [facility] - suspected under dose - titrating Lovenox from 200mg SubQ BID to 130 BID using Factor Xa levels at 1.09- will continue this dose - discussed the HEME/ONC Dr. Gramajo- recommending warfarin - patient refusing # h/o PE/DVT and hypercoagulable state (anti-thrombin 3) - lovenox as above - pt refusing warfarin # Massive volume overload, elevated CO2 levels, Very difficult assessment for fluid status due to her obesity. - now agreeable to 80mg of lasix and continue k replacement as ordered # constipation - patient refusing bowel regimen- have schedule several meds # Morbid Obesity BMI 93 # [place] - BIPAP qhs # Chronic respiratory failure due to OHS - 8L baseline # Tobacco dependence - patch # Skin breakdown - unlikely yeast per wound RN # dispo > 2MN as requiring IV abx/antifungals and monitoring of cultures I have discussed the case with Dr. Oconnell. PO fluconazole/Zyvox remains an option , but we both favor line placement will need 2 weeks of abx from date of port removal Subjective: no new complatins. feet continue to be swollen. refused 80mg dose of lasix this morning Objective: Vital Signs Temp Pulse Resp BP Pulse Ox 37.1 C 81 14 117/97 H 100 09/06/16 07:15 09/06/16 07:15 09/06/16 07:15 09/06/16 07:15 09/06/16 07:15 Microbiology 09/02/16 11:00 Gram Stain - Final Other - Other 08/30/16 13:30 Blood Panel (PCR) - Final Blood Nesha Parapsilosis Laboratory Results 09/02/16 05:15 09/01/16 04:40 09/05/16 09/06/16 09/07/16 05:59 05:59 05:59 Intake Total 2700 825 Output Total 2600 4350 Balance 100 -3525 PT 15.8 SEC (12.0-15.0) H 08/27/16 21:50 INR 1.26 (0.83-1.16) H 08/27/16 21:50 - Physical Exam Constitutional: chronically ill appearing, obese Eyes: PERRL, anicteric sclera, EOMI Ears, Nose, Mouth, Throat: moist mucous membranes, hearing normal, ears appear normal, no oral mucosal ulcers Cardiovascular: edema (bilat feet) ICD10 Worksheet Patient Problems: Problems Problem Status Onset Pneumonia Acute Chest pain Acute Morbid obesity Acute D-dimer, elevated Acute
--- NOTE | 2016-09-06 15:05 | SOAPPROG ---
SOAP Progress Note Assessment/Plan: Assessment/Plan: 36 Y F BMI 93, bacteremia, s/p port removal, poor IV access. Changed port site dressing today using hydrofera blue. Plan for change in 3 days. Discussed with medicine and patient likely to need port for IV access. Reviewed US report. Will discuss with Dr. Esparza. S: c/o pain at port site during last dressing change--very nervous about wound care. O: alert, nad, lying prone in bed, morbidly obese port site: open wound, some granulation with venous oozing upon dressing removal. no erythema, surrounding skin is soft. 09/06/16 15:02 Objective: Vital Signs Temp Pulse Resp BP Pulse Ox 37.1 C 81 14 117/97 H 100 09/06/16 07:15 09/06/16 07:15 09/06/16 07:15 09/06/16 07:15 09/06/16 07:15 Microbiology 09/02/16 11:00 Gram Stain - Final Other - Other 08/30/16 13:30 Blood Panel (PCR) - Final Blood Nesha Parapsilosis Laboratory Results 09/02/16 05:15 09/01/16 04:40 09/05/16 09/06/16 09/07/16 05:59 05:59 05:59 Intake Total 2700 825 Output Total 2600 4350 Balance 100 -3525 PT 15.8 SEC (12.0-15.0) H 08/27/16 21:50 INR 1.26 (0.83-1.16) H 08/27/16 21:50 ICD10 Worksheet Patient Problems: Problems Problem Status Onset Chest pain Acute D-dimer, elevated Acute Morbid obesity Acute Pneumonia Acute
--- NOTE | 2016-09-06 15:38 | PCMIDPN ---
Assessment/Plan: Polymicrobial line infection with enterococcus and nesha parapsilosis s/p port removal. Unclear significant of CoNS or Abiotrophia. Unable to establish if clearance of infection because of inability to get blood due to difficult access. 5+ day since have been able to evaluate Safety labs but luckily were able to get some labs today, Cr and LFTs WNL --continue IV vancomycin and fluconazole --would give higher dose of fluconazole, some data suggest higher dosing in obesity. Corrected dose could be as high at 1500 mg/day, reluctant to give that dose, will give 800mg daily. Switch to PO since eating and see if tolerates --vancomycin dosing based on prior pharmacodynamics meds vancomycin 1.25gm IV q12h Subjective: unwilling to undergo exam reluctant to have any blood collected Objective: Vital Signs Temp Pulse Resp BP Pulse Ox 37.2 C 80 18 96/46 L 98 09/06/16 15:28 09/06/16 15:28 09/06/16 15:28 09/06/16 15:28 09/06/16 15:28 Microbiology 09/02/16 11:00 Gram Stain - Final Other - Other 08/30/16 13:30 Blood Panel (PCR) - Final Blood Nesha Parapsilosis Laboratory Results 09/02/16 05:15 09/01/16 04:40 09/05/16 09/06/16 09/07/16 05:59 05:59 05:59 Intake Total 2700 825 Output Total 2600 4350 1800 Balance 100 -3525 -1800 - Physical Exam General Appearance: alert, obese Respiratory: other (wearing CPAP ), No accessory muscle use Neuro/Psych: depressed affect - Line/s PIV Lines: other (R forearm), No drainage, No erythema ICD10 Worksheet Patient Problems: Problems Problem Status Onset Chest pain Acute D-dimer, elevated Acute Morbid obesity Acute Pneumonia Acute
[2016-09-06 16:59] LABS: ALANINE AMINOTRANSFERASE 23 IU/L (9-52); ALKALINE PHOSPHATASE 56 IU/L (38-126); ASPARTATE AMINOTRANSFERASE 23 IU/L (14-46); BILIRUBIN,TOTAL 0.5 mg/dL (0.1-1.4); CALCIUM 8.8 mg/dL (8.5-10.4); CHLORIDE 88 mEq/L (97-110); CREATININE 0.8 mg/dL (0.6-1.0); GLOMERULAR FILTRATION RATE > 60; GLUCOSE 135 mg/dL (70-100); POTASSIUM 3.8 mEq/L (3.5-5.2); SODIUM 139 mEq/L (134-144); TOTAL PROTEIN 6.5 g/dL (6.3-8.2)
[2016-09-06 17:14] LABS: ANION GAP 7 mEq/L (8-16)
[2016-09-06 17:17] LABS: CARBON DIOXIDE 44 mEq/l (22-31)
[2016-09-06] MEDS ORDERED: FLUCONAZOLE 100 MG TAB PO ONE (17:30)
[2016-09-07] MEDS: VANCOMYCIN 1.25 GM in D5W 250 ML IV SCH ×2 (03:55→16:11)
[2016-09-07] MEDS: oxyCODONE IR 5 MG TAB PO PRN (04:15)
[2016-09-07] MEDS: HYDROmorphONE/DILAUDID 4 MG TAB PO PRN ×4 (08:59→21:17)
[2016-09-07] MEDS: FLUCONAZOLE 100 MG TAB PO SCH (09:21)
[2016-09-07] MEDS: NICOTINE 21 MG/24 HR PATCH TD SCH (09:22)
[2016-09-07] MEDS: FUROSEMIDE 40 MG TAB PO SCH (09:23)
[2016-09-07] MEDS: DOCUSATE SODIUM 100 MG CAP PO SCH ×2 (09:25→21:09)
[2016-09-07] MEDS: SENNOSIDES/DOCUSATE SODIUM TAB PO SCH ×2 (09:26→21:09)
[2016-09-07] MEDS: ENOXAPARIN 30 MG/0.3 ML SYR SC SCH ×2 (09:27→21:09)
[2016-09-07] MEDS: ENOXAPARIN 100 MG/ML SYR SC SCH ×2 (09:27→21:09)
[2016-09-07] MEDS: clonazePAM 1 MG TAB PO PRN ×2 (09:42→21:17)
[2016-09-07] MEDS: MAGNESIUM HYDROXIDE 30 ML UDCUP PO SCH (11:17)
[2016-09-07] MEDS: POLYETHYLENE GLYCOL 3350 17 GM PKT PO SCH (11:18)
--- NOTE | 2016-09-07 13:01 | HOSPPROG ---
Hospitalist Progress Note Assessment/Plan: 36-year-old female new to my care 09/05/16 with morbid obesity and BMI greater than 60 complicated by chronic respiratory failure on 3 L oxygen at baseline. Is admitted with pleuritic chest pain. She has a history of recurrent PEs and DVTs. She developed fevers and has positive blood cultures with enterococcus and Nesha. Due to her body habitus is it is impossible to do any imaging to assist with evaluation. # Bacteremia with enterococcus and Candidemia- last Bcx - positive for enterococcus and nesha thought be secondary to port infection. Port removed by Dr. Esparza 09/02 - Continue IV Vanco - continue PO Fluconazole -will attempt to obtain blood cultures today. May need to be done by IR - Await surgical line placement by Dr. Esparza once cultures are negative # Pleuritic chest pain and SOB (improving)- previously using factor Xa levels to assess dosing of Lovenox- no access for labs currently oxygen saturations 91% on CPAP with 9L - EKG (personally reviewed and interpreted) sinus rhythm low voltage no acute STT changes unable to evaluate for DVT/PE- over weight limit for CT table, poor quality CXR/US- getting Lovenox 120mg BID at [facility] - suspected under dose - titrating Lovenox from 200mg SubQ BID to 130 BID using Factor Xa levels at 1.09- will continue this dose - discussed the HEME/ONC Dr. Gramajo- recommending warfarin - patient refusing # h/o PE/DVT and hypercoagulable state (anti-thrombin 3) - lovenox as above - pt refusing warfarin #chronic opioid dependency/chronic pain -will dc home dose of oxyir (09/07) -increase home dose of po dilaudid to 4-8mg q4 # Massive volume overload, elevated CO2 levels, Very difficult assessment for fluid status due to her obesity. - now agreeable to 80mg of lasix and continue k replacement as ordered # constipation - patient refusing bowel regimen- have schedule several meds # Morbid Obesity BMI 93 # [place] - BIPAP qhs # Chronic respiratory failure due to OHS - 8L baseline # Tobacco dependence - patch # Skin breakdown - unlikely yeast per wound RN -pt requests to have carrillo cath removed due to discomfort from catheter # dispo > 2MN as requiring IV abx/antifungals and monitoring of cultures I have discussed the case with Dr. Cordoba. Subjective: continues to have severe pain in feet. tells me neurontin has not helped in the past. denies fevers or chills. slight improved swelling in feet. pt requests to have carrillo catheter removed. She verbalizes understanding to risks of skin breakdown Objective: Vital Signs Temp Pulse Resp BP Pulse Ox 36.4 C 74 24 H 113/71 94 09/07/16 09:52 09/07/16 09:52 09/07/16 11:26 09/07/16 11:26 09/07/16 11:26 Microbiology 09/02/16 11:00 Gram Stain - Final Other - Other 08/30/16 13:30 Blood Panel (PCR) - Final Blood Nesha Parapsilosis Laboratory Results 09/02/16 05:15 09/06/16 16:15 09/06/16 09/07/16 09/08/16 05:59 05:59 05:59 Intake Total 825 925 Output Total 4350 4350 Balance -3525 -3425 PT 15.8 SEC (12.0-15.0) H 08/27/16 21:50 INR 1.26 (0.83-1.16) H 08/27/16 21:50 - Physical Exam Constitutional: chronically ill appearing, obese Eyes: PERRL, anicteric sclera, EOMI Ears, Nose, Mouth, Throat: moist mucous membranes, hearing normal, ears appear normal, no oral mucosal ulcers Cardiovascular: edema (bilat feet) Skin: warm, normal color, No mottled Neurologic: AAOx3, CN II-XII Intact, No facial droop Psychiatric: interacting appropriately, thought process linear, No encephalopathic, No anxious ICD10 Worksheet Patient Problems: Problems Problem Status Onset Pneumonia Acute Chest pain Acute Morbid obesity Acute D-dimer, elevated Acute
[2016-09-07] MEDS: ACETAMINOPHEN 325 MG TAB PO PRN (13:20)
[2016-09-07] MEDS: POTASSIUM CL 20 MEQ/15 ML UDCUP PO SCH (13:20)
[2016-09-08] MEDS: HYDROmorphONE/DILAUDID 4 MG TAB PO PRN ×4 (04:46→21:25)
[2016-09-08] MEDS: VANCOMYCIN 1.25 GM in D5W 250 ML IV SCH ×2 (05:04→17:24)
--- NOTE | 2016-09-08 08:58 | HOSPPROG ---
Hospitalist Progress Note Assessment/Plan: Patient is new to my care today. #Enterococcus/Nesha bacteremia: port removed by Dr. Esparza. IV Vanc and fluconazole. Appreciate ID consult #Access issues: will need port replaced once cultures clear #h/o DVT/PE: recommended warfarin, but pt refusing. Currently on Lovenox 130mg BID #Pleuritic chest pain: cannot evaluate for PE given body habitus. Improving. Tx as above #Volume overload: Lasix 80mg BID #Chronic hypoxemic resp failure: due to [place]. Cont CPAP #Metabolic alkalosis: chronic resp failure #Tobacco abuse: nicotine patch #Goals: pt met with palliative care. Does still want medical treatments, because her wants her to live. Does not want any therapies for weight loss. #Disp: back to [place] when clinically stable Subjective: "pain all over" Objective: Vital Signs Temp Pulse Resp BP Pulse Ox 36.8 C 76 14 120/64 94 09/07/16 23:35 09/08/16 03:40 09/08/16 03:40 09/07/16 23:35 09/08/16 03:40 Microbiology 09/02/16 11:00 Gram Stain - Final Other - Other 08/30/16 13:30 Blood Panel (PCR) - Final Blood Nesha Parapsilosis Laboratory Results 09/02/16 05:15 09/06/16 16:15 09/07/16 09/08/16 09/09/16 05:59 05:59 05:59 Intake Total 925 2735 Output Total 4350 2301 Balance -3425 434 PT 15.8 SEC (12.0-15.0) H 08/27/16 21:50 INR 1.26 (0.83-1.16) H 08/27/16 21:50 - Physical Exam Constitutional: other (morbidly obese) Ears, Nose, Mouth, Throat: moist mucous membranes, other (CPAP mask on ) Cardiovascular: regular rate and rhythym Respiratory: no respiratory distress Gastrointestinal: normoactive bowel sounds, soft, non-tender abdomen Skin: warm Musculoskeletal: full muscle strength Neurologic: AAOx3, CN II-XII Intact Psychiatric: flat affect ICD10 Worksheet Patient Problems: Problems Problem Status Onset Chest pain Acute D-dimer, elevated Acute Morbid obesity Acute Pneumonia Acute
--- NOTE | 2016-09-08 09:32 | SOAPPROG ---
SOAP Progress Note Assessment/Plan: Assessment: 36yo female with bacteremia, port removal for infection, morbid obesity. Possible DVT/PE on VANCO, diflucan PE Plan: may need new port for access in future, Dr Esparza aware. 09/08/16 09:31 09/08/16 09:33 Objective: Vital Signs Temp Pulse Resp BP Pulse Ox 36.8 C 76 14 120/64 94 09/07/16 23:35 09/08/16 03:40 09/08/16 03:40 09/07/16 23:35 09/08/16 03:40 Microbiology 09/02/16 11:00 Gram Stain - Final Other - Other 08/30/16 13:30 Blood Panel (PCR) - Final Blood Nesha Parapsilosis Laboratory Results 09/02/16 05:15 09/06/16 16:15 09/07/16 09/08/16 09/09/16 05:59 05:59 05:59 Intake Total 925 2735 Output Total 4350 2301 Balance -3425 434 PT 15.8 SEC (12.0-15.0) H 08/27/16 21:50 INR 1.26 (0.83-1.16) H 08/27/16 21:50 ICD10 Worksheet Patient Problems: Problems Problem Status Onset Chest pain Acute D-dimer, elevated Acute Morbid obesity Acute Pneumonia Acute
[2016-09-08] MEDS: NICOTINE 21 MG/24 HR PATCH TD SCH (11:46)
[2016-09-08] MEDS: FLUCONAZOLE 100 MG TAB PO SCH (11:50)
[2016-09-08] MEDS: ENOXAPARIN 30 MG/0.3 ML SYR SC SCH ×2 (11:52→21:22)
[2016-09-08] MEDS: ENOXAPARIN 100 MG/ML SYR SC SCH ×2 (11:52→21:22)
[2016-09-08] MEDS: FUROSEMIDE 40 MG TAB PO SCH (11:52)
[2016-09-08] MEDS: SENNOSIDES/DOCUSATE SODIUM TAB PO SCH ×2 (11:53→21:22)
[2016-09-08] MEDS: POTASSIUM CL 20 MEQ/15 ML UDCUP PO SCH (11:54)
[2016-09-08] MEDS: DOCUSATE SODIUM 100 MG CAP PO SCH ×2 (13:00→21:22)
[2016-09-08] MEDS: MAGNESIUM HYDROXIDE 30 ML UDCUP PO SCH (13:02)
[2016-09-08] MEDS: POLYETHYLENE GLYCOL 3350 17 GM PKT PO SCH (13:03)
[2016-09-08] MEDS: BISACODYL 10 MG SUPP PR PRN (13:07)
[2016-09-08] MEDS: clonazePAM 1 MG TAB PO PRN ×2 (13:07→21:26)
[2016-09-08 16:20] LABS: CALCIUM 8.8 mg/dL (8.5-10.4); CHLORIDE 88 mEq/L (97-110); CREATININE 0.8 mg/dL (0.6-1.0); GLOMERULAR FILTRATION RATE > 60; GLUCOSE 132 mg/dL (70-100); POTASSIUM 4.1 mEq/L (3.5-5.2); SODIUM 141 mEq/L (134-144)
[2016-09-08 16:23] LABS: ANION GAP 13 mEq/L (8-16)
[2016-09-08 16:46] LABS: CARBON DIOXIDE 45 mEq/l (22-31)
--- NOTE | 2016-09-08 18:14 | PCMIDPN ---
Assessment/Plan: Assessment: Bacteremia with Enterococcus as well as fungemia with Nesha. Stable on IV vancomycin and fluconazole. Now the port is removed, patient will need at least 2-4 weeks of coverage with vancomycin fluconazole post removal. Repeat blood cultures obtained. So far negative. Will continue to monitor these and if they are negative for over 72 hours we will clear for replacement of more permanent access. Plan: 1. Continue vancomycin and fluconazole. 2. Discuss with surgery about continued IV access. Only remaining IV access is a right antecubital peripheral IV. 09/09/16 08:24 Subjective: Patient continues to lay prone on her bed. Continues to complain of generalized arthralgias and myalgias. Objective: Vancomycin # 11 Fluconazole # 11 Vital Signs Temp Pulse Resp BP Pulse Ox 37 C 82 18 111/78 90 L 09/08/16 16:00 09/08/16 16:00 09/08/16 16:00 09/08/16 16:00 09/08/16 16:00 Microbiology 08/30/16 04:00 Blood Culture - Final Blood Nesha Parapsilosis 09/02/16 11:00 Gram Stain - Final Other - Other Laboratory Results 09/02/16 05:15 09/08/16 15:30 09/07/16 09/08/16 09/09/16 05:59 05:59 05:59 Intake Total 925 2735 780 Output Total 4350 2301 Balance -3425 434 780 - Physical Exam General Appearance: WD/WN, alert, no apparent distress, obese, non-toxic Respiratory: lungs clear (Very distant sounds) Cardiac/Chest: regular rate, rhythm (Very distant), No tachycardia Skin: normal color, warm/dry, No rash Neuro/Psych: alert ICD10 Worksheet Patient Problems: Problems Problem Status Onset Chest pain Acute D-dimer, elevated Acute Morbid obesity Acute Pneumonia Acute
[2016-09-08] MEDS: acetaZOLAMIDE 250 MG TAB PO SCH (21:22)
[2016-09-09] MEDS: HYDROmorphONE/DILAUDID 4 MG TAB PO PRN ×4 (03:11→23:05)
[2016-09-09] MEDS: VANCOMYCIN 1.25 GM in D5W 250 ML IV SCH ×2 (05:08→16:57)
[2016-09-09] MEDS: acetaZOLAMIDE 250 MG TAB PO SCH ×2 (10:11→23:18)
[2016-09-09] MEDS: FLUCONAZOLE 100 MG TAB PO SCH (10:11)
[2016-09-09] MEDS: SENNOSIDES/DOCUSATE SODIUM TAB PO SCH ×2 (10:12→23:18)
[2016-09-09] MEDS: POTASSIUM CL 20 MEQ/15 ML UDCUP PO SCH ×2 (10:12→10:57)
[2016-09-09] MEDS: FUROSEMIDE 40 MG TAB PO SCH (10:12)
[2016-09-09] MEDS: DOCUSATE SODIUM 100 MG CAP PO SCH ×2 (10:12→23:18)
[2016-09-09] MEDS: MAGNESIUM HYDROXIDE 30 ML UDCUP PO SCH (10:12)
[2016-09-09] MEDS: NICOTINE 21 MG/24 HR PATCH TD SCH (10:13)
[2016-09-09] MEDS: POLYETHYLENE GLYCOL 3350 17 GM PKT PO SCH (10:13)
[2016-09-09] MEDS: ENOXAPARIN 100 MG/ML SYR SC SCH ×2 (10:14→23:19)
[2016-09-09] MEDS: ENOXAPARIN 30 MG/0.3 ML SYR SC SCH ×2 (10:14→23:19)
--- NOTE | 2016-09-09 10:31 | PCMIDPN ---
Assessment/Plan: 1. Bacteremia and fungemia with enterococcus faecalis and Nesha secondary to port infection status post removal: This is an extremely unfortunate situation. I strongly feel that if a new port is placed, it will be quickly reinfected and we will be back in the same position again. Given the patient's multiple comorbidities and dire situation invoking medical futility, I do feel that a hospice conversation should be reopened. I have asked the neonatal social worker to call the palliative care team again. For now, will continue vancomycin and fluconazole. Subjective: About the same. The IV in her left hand was placed yesterday, and per the nurse, will not last long. Patient was able to lift her arm for me. She has significant Nesha intertrigo visible under her right axilla. Otherwise I am not able to examine her properly Given her body habitus. Objective: Vancomycin 1.25 g IV q.12 hours day 12. Fluconazole 100 mg daily day 12 Afebrile Vital Signs Temp Pulse Resp BP Pulse Ox 36.8 C 75 15 107/70 100 09/09/16 09:20 09/09/16 09:20 09/09/16 09:20 09/09/16 09:20 09/09/16 09:20 Microbiology 08/30/16 04:00 Blood Culture - Final Blood Nesha Parapsilosis 09/02/16 11:00 Gram Stain - Final Other - Other Laboratory Results 09/02/16 05:15 09/08/16 15:30 09/08/16 09/09/16 09/10/16 05:59 05:59 05:59 Intake Total 2735 1370 Output Total 2301 Balance 434 1370 blood cultures from 09/07 no growth so far - Physical Exam General Appearance: obese, other ( Blue cheeks) Respiratory: wheezing Skin: other ( I was able to look under her right axilla. The patient has significant maceration with erythema consistent with Nesha intertrigo.) ICD10 Worksheet Patient Problems: Problems Problem Status Onset Chest pain Acute D-dimer, elevated Acute Morbid obesity Acute Pneumonia Acute
[2016-09-09] MEDS: POTASSIUM CL 20 MEQ TAB PO SCH (11:31)
[2016-09-09] MEDS ORDERED: LIDOCAINE 1% 5 ML SDV ONE (12:14)
[2016-09-09] MEDS ORDERED: SODIUM BICARBONATE 10 MEQ/10 ML SYR IVP ONE (12:14)
[2016-09-09] MEDS ORDERED: BUPIVACAINE 0.5% 30 ML SDV ONE (12:14)
--- NOTE | 2016-09-09 14:20 | PDPCPN ---
Palliative Care Progress Note Assessment/Plan: HPI: Roxanna Metcalf is a 36 o female with PMH morbid obesity, chronic resp failure, and DVT/PE admitted to the hospital from [facility] for chest pain. Thought to have recurrent PE but due to body status unable to complete diagnostic testing. Lovenox given and adjusted per pharmacy. Hospitalization complicated by fevers and + BC 2/2 infected port s/p removal with complications with new placement. Palliative care consulted for complex medical decision making. Spoke with Roxanna and Garfield at various times throughout the day. Roxanna understands the nature of her bacteremia with complications of continued infection due to severity. Her goals have always centered around comfort and choosing her own path. Also spoke with her mother over the phone to update her on her medical condition. Roxanna would like support for comfort and understands she is at the end of her life. Spent >60 minutes in face to face discussion and coordination of care. Met with patient and 3 separate times. Assessment: Physical: - Pain: pleuritic chest pain - on dilaudid and oxy IR PO PRN - constipation - at risk if using opiates - continue bowel regimen with senna and colace Emotional/psychological: Has a lot of support from her . Antonia Ludwig is following Advanced Care Planning: Is patient decisional?: Yes Code Status: DNR MD DOS SANTOS: no paperwork on file but per report Garfield is MDPOA. Plan: Hospice care at [facility]. Navin meeting with patient at 3:30 today. Subjective: pain is tolerable at present Objective: Vital Signs Temp Pulse Resp BP Pulse Ox 36.8 C 75 15 107/70 100 09/09/16 09:20 09/09/16 09:20 09/09/16 09:20 09/09/16 09:20 09/09/16 09:20 Microbiology 09/02/16 11:00 Gram Stain - Final Other - Other 08/30/16 04:00 Blood Culture - Final Blood Nesha Parapsilosis Laboratory Results 09/02/16 05:15 09/08/16 15:30 09/08/16 09/09/16 09/10/16 05:59 05:59 05:59 Intake Total 2735 1370 Output Total 2301 Balance 434 1370 PT 15.8 SEC (12.0-15.0) H 08/27/16 21:50 INR 1.26 (0.83-1.16) H 08/27/16 21:50 Physical Exam - Physical Exam General Appearance: alert, no apparent distress, obese Respiratory: No respiratory distress, No accessory muscle use Skin: normal color, warm/dry Extremities: pedal edema Neuro/Psych: alert, oriented x 3 ICD10 Worksheet Patient Problems: Problems Problem Status Onset Chest pain Acute D-dimer, elevated Acute Morbid obesity Acute Pneumonia Acute
--- NOTE | 2016-09-09 20:01 | SOAPPROG ---
SOAP Progress Note Assessment/Plan: Assessment: somewhat unhappy 36 female. morbidly obese with bmi 93/ now with fungicemia most likely 2/2 infected 2 year old port risks and options discussed with pt and who agree to proceed Plan:hold lovenox / port removal in am / central line placemrnt 09/01/16 17:07 09/05/16 09:54 difficult to assess jugular veins for use for new port/ will need to try in OR when scheduled for surgery/ afebrile 09/09/16 20:00 WILL HOLD OFF TODAY ON PORT PLACEMENT UNTIL FURTHER DECISIONS BY ETHICS COMMITTEE AND INFECTIOUS DISEASE Objective: Vital Signs Temp Pulse Resp BP Pulse Ox 37.3 C 78 18 105/68 98 09/09/16 15:30 09/09/16 15:30 09/09/16 15:30 09/09/16 15:30 09/09/16 15:30 Microbiology 09/02/16 11:00 Gram Stain - Final Other - Other Laboratory Results 09/02/16 05:15 09/08/16 15:30 09/08/16 09/09/16 09/10/16 05:59 05:59 05:59 Intake Total 2735 1370 Output Total 2301 Balance 434 1370 PT 15.8 SEC (12.0-15.0) H 08/27/16 21:50 INR 1.26 (0.83-1.16) H 08/27/16 21:50 ICD10 Worksheet Patient Problems: Problems Problem Status Onset Chest pain Acute D-dimer, elevated Acute Morbid obesity Acute Pneumonia Acute
--- NOTE | 2016-09-09 22:59 | HOSPPROG ---
Hospitalist Progress Note Assessment/Plan: P. #Enterococcus/Nesha bacteremia: port removed by Dr. Esparza. IV Vanc and fluconazole. Appreciate ID consult. #Access issues: will need port replaced once cultures clear #h/o DVT/PE: recommended warfarin, but pt refusing. Currently on Lovenox 130mg BID #Pleuritic chest pain: cannot evaluate for PE given body habitus. Improving. Tx as above #Volume overload: Lasix 80mg BID #Chronic hypoxemic resp failure: due to [place]. Cont CPAP #Metabolic alkalosis: chronic resp failure #Tobacco abuse: nicotine patch #Goals: Ethics consult today. I had conversation with patient about Palliative Care and hospice. Pt does not seem to want to be in the hospital any longer. She stated no point of port replacement if going to get infected. I expressed to she and Garfield that this is her decision and not his. To be evaluated by Navin hospice and palliative today Subjective: "I am dying" Objective: Vital Signs Temp Pulse Resp BP Pulse Ox 37.3 C 78 18 105/68 98 09/09/16 15:30 09/09/16 15:30 09/09/16 15:30 09/09/16 15:30 09/09/16 15:30 Microbiology 09/02/16 11:00 Gram Stain - Final Other - Other Laboratory Results 09/02/16 05:15 09/08/16 15:30 09/08/16 09/09/16 09/10/16 05:59 05:59 05:59 Intake Total 2735 1370 Output Total 2301 Balance 434 1370 PT 15.8 SEC (12.0-15.0) H 08/27/16 21:50 INR 1.26 (0.83-1.16) H 08/27/16 21:50 - Physical Exam Constitutional: obese Eyes: PERRL Ears, Nose, Mouth, Throat: moist mucous membranes Cardiovascular: regular rate and rhythym Respiratory: no respiratory distress Gastrointestinal: normoactive bowel sounds, soft, non-tender abdomen Skin: warm, other (old port site dressed) Neurologic: AAOx3, CN II-XII Intact Psychiatric: other (tearful) ICD10 Worksheet Patient Problems: Problems Problem Status Onset Chest pain Acute D-dimer, elevated Acute Morbid obesity Acute Pneumonia Acute
[2016-09-10] MEDS: clonazePAM 1 MG TAB PO PRN ×2 (00:37→09:51)
[2016-09-10] MEDS: HYDROmorphONE/DILAUDID 4 MG TAB PO PRN ×4 (00:38→19:35)
[2016-09-10] MEDS: VANCOMYCIN 1.25 GM in D5W 250 ML IV SCH ×2 (04:51→15:33)
--- NOTE | 2016-09-10 08:43 | PCMIDPN ---
Assessment/Plan: 1. Bacteremia and fungemia with enterococcus faecalis and Nesha secondary to port infection status post removal: For now, will continue vancomycin and fluconazole; stop date approximately September 16, or 2 weeks after port removal. Ethics and hospice to meet with patient again tomorrow. I strongly feel that a new port would get infected in short order off of antibiotics,and this would be medically futile moving forward. Subjective: Patient is sleeping soundly with her CPAP machine in place. I tried to wake her up without success. I did speak with an ethics membership sales advisor. Patient is contemplating hospice plans moving forward But could not make definitive plans.; will readdress tomorrow. Hospice also tried to meet with her , but she had just received pain medication and therefore could not have a coherent conversation. Objective: Vancomycin 1.25 g IV q.12 hours day 13. fluconazole 100 mg IV daily day 13. stop date September 16 afebrile Vital Signs Temp Pulse Resp BP Pulse Ox 36.9 C 78 18 101/66 98 09/10/16 00:00 09/10/16 00:00 09/10/16 00:00 09/10/16 00:00 09/10/16 00:00 Microbiology 09/02/16 11:00 Gram Stain - Final Other - Other Laboratory Results 09/02/16 05:15 09/10/16 06:00 09/09/16 09/10/16 09/11/16 05:59 05:59 05:59 Intake Total 1370 Balance 1370 recent blood cultures remain negative ICD10 Worksheet Patient Problems: Problems Problem Status Onset Chest pain Acute D-dimer, elevated Acute Morbid obesity Acute Pneumonia Acute
[2016-09-10] MEDS: FUROSEMIDE 40 MG TAB PO SCH (09:47)
[2016-09-10] MEDS: FLUCONAZOLE 100 MG TAB PO SCH (09:47)
[2016-09-10] MEDS: SENNOSIDES/DOCUSATE SODIUM TAB PO SCH ×2 (09:48→22:53)
[2016-09-10] MEDS: DOCUSATE SODIUM 100 MG CAP PO SCH ×2 (09:48→22:53)
[2016-09-10] MEDS: POTASSIUM CL 20 MEQ TAB PO SCH (09:48)
[2016-09-10] MEDS: NICOTINE 21 MG/24 HR PATCH TD SCH (09:48)
[2016-09-10] MEDS: MAGNESIUM HYDROXIDE 30 ML UDCUP PO SCH (10:24)
[2016-09-10] MEDS: POLYETHYLENE GLYCOL 3350 17 GM PKT PO SCH (10:24)
[2016-09-10] MEDS: ENOXAPARIN 100 MG/ML SYR SC SCH (10:24)
[2016-09-10] MEDS: acetaZOLAMIDE 250 MG TAB PO SCH ×2 (10:24→22:52)
[2016-09-10] MEDS: ENOXAPARIN 30 MG/0.3 ML SYR SC SCH (10:25)
--- NOTE | 2016-09-10 16:12 | HOSPPROG ---
Hospitalist Progress Note Assessment/Plan: P. #Enterococcus/Nesha bacteremia: port removed by Dr. Esparza. IV Vanc and fluconazole through September 16 #Access issues: ID feels that she will just be re-infected and recommend against it #h/o DVT/PE: recommended warfarin, but pt refusing. Currently on Lovenox 130mg BID #Pleuritic chest pain: cannot evaluate for PE given body habitus. Improving. Tx as above #Volume overload: Lasix 80mg BID #Chronic hypoxemic resp failure: due to [place]. Cont CPAP #Metabolic alkalosis: chronic resp failure #Tobacco abuse: nicotine patch #Goals: has been evaluated by Ethics, Palliative care. At this point she says that she no longer wants to be in hospital and does not want the port replaced. Her moravian is helping to arrange a motel for her. Hospice to see her again tomorrow. Subjective: no acute events Objective: Vital Signs Temp Pulse Resp BP Pulse Ox 36.9 C 78 18 101/66 98 09/10/16 00:00 09/10/16 00:00 09/10/16 00:00 09/10/16 00:00 09/10/16 00:00 Microbiology 09/02/16 11:00 Gram Stain - Final Other - Other Laboratory Results 09/02/16 05:15 09/10/16 06:00 09/09/16 09/10/16 09/11/16 05:59 05:59 05:59 Intake Total 1370 Balance 1370 PT 15.8 SEC (12.0-15.0) H 08/27/16 21:50 INR 1.26 (0.83-1.16) H 08/27/16 21:50 - Physical Exam Constitutional: obese (morbidly) Eyes: PERRL Ears, Nose, Mouth, Throat: moist mucous membranes Cardiovascular: regular rate and rhythym Respiratory: reduced air movement Gastrointestinal: normoactive bowel sounds, soft, non-tender abdomen Skin: warm Musculoskeletal: full muscle strength Neurologic: AAOx3, CN II-XII Intact ICD10 Worksheet Patient Problems: Problems Problem Status Onset Chest pain Acute D-dimer, elevated Acute Morbid obesity Acute Pneumonia Acute
[2016-09-11] MEDS: ENOXAPARIN 30 MG/0.3 ML SYR SC SCH ×3 (02:38→23:03)
[2016-09-11] MEDS: ENOXAPARIN 100 MG/ML SYR SC SCH ×3 (02:38→23:03)
[2016-09-11] MEDS: HYDROmorphONE/DILAUDID 4 MG TAB PO PRN ×4 (04:38→23:08)
[2016-09-11] MEDS: VANCOMYCIN 1.25 GM in D5W 250 ML IV SCH ×3 (04:38→19:43)
[2016-09-11] MEDS: clonazePAM 1 MG TAB PO PRN (07:37)
--- NOTE | 2016-09-11 08:51 | PCMIDPN ---
Assessment/Plan: 1. Bacteremia and fungemia with enterococcus faecalis and Nesha secondary to port infection status post removal: For now, will continue vancomycin and fluconazole; stop date approximately September 16, or 2 weeks after port removal. Ethics and hospice to meet with patient again today. I strongly feel that a new port would get infected in short order off of antibiotics,and this would be medically futile moving forward. Again, patient does not want a new port placed. Of note, given access issues we are unable to obtain safety labs on these antibiotics. Subjective: No significant overnight events. Playing a game on her [employer] with her . Understands that hospice will be coming again today, and I asked her to please hold off on taking pain medications so she can have a coherent conversation with them. Objective: Vancomycin 1.25 g IV q.12 hours day 14 Fluconazole 800 mg p. o. daily day 14 (stop date September 16 if her IV will hold) Afebrile Vital Signs Temp Pulse Resp BP Pulse Ox 36.6 C 72 20 93/73 L 100 09/11/16 04:27 09/11/16 04:27 09/11/16 04:27 09/11/16 04:27 09/11/16 04:27 Microbiology 09/02/16 11:00 Gram Stain - Final Other - Other Laboratory Results 09/02/16 05:15 09/10/16 06:00 09/10/16 09/11/16 09/12/16 05:59 05:59 05:59 Intake Total 285 Balance 285 Repeat blood cultures from September 08 show no growth - Physical Exam General Appearance: obese ICD10 Worksheet Patient Problems: Problems Problem Status Onset Chest pain Acute D-dimer, elevated Acute Morbid obesity Acute Pneumonia Acute
[2016-09-11] MEDS: POLYETHYLENE GLYCOL 3350 17 GM PKT PO SCH (10:28)
[2016-09-11] MEDS: MAGNESIUM HYDROXIDE 30 ML UDCUP PO SCH (10:28)
[2016-09-11] MEDS: FLUCONAZOLE 100 MG TAB PO SCH (10:42)
[2016-09-11] MEDS: FUROSEMIDE 40 MG TAB PO SCH (10:42)
[2016-09-11] MEDS: POTASSIUM CL 20 MEQ TAB PO SCH (10:42)
[2016-09-11] MEDS: NICOTINE 21 MG/24 HR PATCH TD SCH (10:42)
[2016-09-11] MEDS: DOCUSATE SODIUM 100 MG CAP PO SCH ×2 (10:43→22:12)
[2016-09-11] MEDS: SENNOSIDES/DOCUSATE SODIUM TAB PO SCH ×2 (10:43→23:03)
[2016-09-11] MEDS: acetaZOLAMIDE 250 MG TAB PO SCH ×2 (10:46→23:03)
--- NOTE | 2016-09-11 15:47 | HOSPPROG ---
Hospitalist Progress Note Assessment/Plan: #Enterococcus/Nesha bacteremia: port removed by Dr. Esparza. IV Vanc and fluconazole through September 16 #Access issues: ID feels that she will just be re-infected and recommend against it #h/o DVT/PE: recommended warfarin, but pt refusing. Currently on Lovenox 130mg BID #Pleuritic chest pain: cannot evaluate for PE given body habitus. Improving. Tx as above #Volume overload: Lasix 80mg BID #Chronic hypoxemic resp failure: due to [place]. Cont CPAP #Metabolic alkalosis: chronic resp failure #Tobacco abuse: nicotine patch #Goals: has been evaluated by Ethics, Palliative care. At this point she says that she no longer wants to be in hospital and does not want the port replaced. Her mosque is helping to arrange a motel for her. Hospice to see her again today to determine DC plan Subjective: does not want to talk today Objective: Vital Signs Temp Pulse Resp BP Pulse Ox 36.6 C 72 20 93/73 L 100 09/11/16 04:27 09/11/16 04:27 09/11/16 04:27 09/11/16 04:27 09/11/16 04:27 Microbiology 09/02/16 11:00 Gram Stain - Final Other - Other Laboratory Results 09/02/16 05:15 09/10/16 06:00 09/10/16 09/11/16 09/12/16 05:59 05:59 05:59 Intake Total 285 Balance 285 PT 15.8 SEC (12.0-15.0) H 08/27/16 21:50 INR 1.26 (0.83-1.16) H 08/27/16 21:50 - Physical Exam Constitutional: obese Eyes: PERRL Ears, Nose, Mouth, Throat: dry mucous membranes, other (BIpap mask on) Cardiovascular: regular rate and rhythym, no murmur, rub, or gallop Respiratory: no respiratory distress Musculoskeletal: full muscle strength Neurologic: AAOx3 ICD10 Worksheet Patient Problems: Problems Problem Status Onset Chest pain Acute D-dimer, elevated Acute Morbid obesity Acute Pneumonia Acute
[2016-09-12] MEDS: VANCOMYCIN 1.25 GM in D5W 250 ML IV SCH (03:20)
[2016-09-12] MEDS: HYDROmorphONE/DILAUDID 4 MG TAB PO PRN ×4 (04:00→17:30)
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
[2016-09-12] MEDS: DOCUSATE SODIUM 100 MG CAP PO SCH ×2 (08:51→23:16)
[2016-09-12] MEDS: POTASSIUM CL 20 MEQ TAB PO SCH (08:51)
[2016-09-12] MEDS: FUROSEMIDE 40 MG TAB PO SCH (08:51)
[2016-09-12] MEDS: SENNOSIDES/DOCUSATE SODIUM TAB PO SCH ×2 (08:51→23:17)
[2016-09-12] MEDS: FLUCONAZOLE 100 MG TAB PO SCH (08:51)
[2016-09-12] MEDS: NICOTINE 21 MG/24 HR PATCH TD SCH (08:52)
[2016-09-12] MEDS: clonazePAM 1 MG TAB PO PRN ×2 (08:57→17:30)
--- NOTE | 2016-09-12 09:25 | HOSPPROG ---
Hospitalist Progress Note Assessment/Plan: #Enterococcus/Nesha bacteremia: port removed. Only on PO fluconazole through September 16 #Access issues: ID feels that she will just be re-infected and recommend against it and patient does not want it replaced #h/o DVT/PE: recommended warfarin, but pt refusing. Currently on Lovenox 130mg BID #Pleuritic chest pain: cannot evaluate for PE given body habitus. Improving. Tx as above #Volume overload: Lasix 80mg BID #Chronic hypoxemic resp failure: due to [place]. Cont CPAP #Metabolic alkalosis: chronic resp failure #Tobacco abuse: nicotine patch #Goals: has been evaluated by Ethics, Palliative care. Meeting 09/13 to discuss discharge plan with Oscar Camacho. Trying to contact her Drop Board Worker to participate as well. Pt wants to stay in motel and leave the hospital. I explained to her that she cannot stay in the hospital while this arranged if pursuing palliative/hospice care and may have to return to [facility]. Subjective: no acute events Objective: Vital Signs Temp Pulse Resp BP Pulse Ox 36.5 C 76 18 100/66 96 09/12/16 08:00 09/12/16 08:00 09/12/16 08:00 09/12/16 08:00 09/12/16 08:00 Laboratory Results 09/02/16 05:15 09/10/16 06:00 09/11/16 09/12/16 09/13/16 05:59 05:59 05:59 Intake Total 285 Balance 285 PT 15.8 SEC (12.0-15.0) H 08/27/16 21:50 INR 1.26 (0.83-1.16) H 08/27/16 21:50 - Physical Exam Constitutional: obese (morbidly) Eyes: PERRL Ears, Nose, Mouth, Throat: dry mucous membranes Cardiovascular: regular rate and rhythym Respiratory: reduced air movement Skin: warm Musculoskeletal: other (port site dressed with serosang drainage) Neurologic: AAOx3 Psychiatric: interacting appropriately, flat affect, poor insight ICD10 Worksheet Patient Problems: Problems Problem Status Onset Chest pain Acute D-dimer, elevated Acute Morbid obesity Acute Pneumonia Acute
[2016-09-12] MEDS: acetaZOLAMIDE 250 MG TAB PO SCH ×2 (10:43→23:16)
[2016-09-12] MEDS: POLYETHYLENE GLYCOL 3350 17 GM PKT PO SCH (10:44)
[2016-09-12] MEDS: MAGNESIUM HYDROXIDE 30 ML UDCUP PO SCH (10:44)
[2016-09-12] MEDS: ENOXAPARIN 100 MG/ML SYR SC SCH ×2 (11:07→23:16)
[2016-09-12] MEDS: ENOXAPARIN 30 MG/0.3 ML SYR SC SCH ×2 (11:07→23:16)
[2016-09-12] MEDS: ACETAMINOPHEN 325 MG TAB PO PRN (17:53)
[2016-09-13] MEDS: HYDROmorphONE/DILAUDID 4 MG TAB PO PRN ×5 (04:10→22:03)
[2016-09-13] MEDS: NICOTINE 21 MG/24 HR PATCH TD SCH (09:11)
[2016-09-13] MEDS: DOCUSATE SODIUM 100 MG CAP PO SCH ×2 (09:13→22:03)
[2016-09-13] MEDS: FLUCONAZOLE 100 MG TAB PO SCH (09:14)
[2016-09-13] MEDS: FUROSEMIDE 40 MG TAB PO SCH (09:25)
[2016-09-13] MEDS: SENNOSIDES/DOCUSATE SODIUM TAB PO SCH ×2 (09:31→22:03)
[2016-09-13] MEDS: MAGNESIUM HYDROXIDE 30 ML UDCUP PO SCH (09:31)
[2016-09-13] MEDS: POTASSIUM CL 20 MEQ TAB PO SCH (09:31)
[2016-09-13] MEDS: ENOXAPARIN 100 MG/ML SYR SC SCH ×2 (09:32→22:04)
[2016-09-13] MEDS: POLYETHYLENE GLYCOL 3350 17 GM PKT PO SCH (09:32)
[2016-09-13] MEDS: acetaZOLAMIDE 250 MG TAB PO SCH ×2 (09:33→22:03)
[2016-09-13] MEDS: ENOXAPARIN 30 MG/0.3 ML SYR SC SCH ×2 (12:33→22:05)
--- NOTE | 2016-09-13 15:57 | HOSPPROG ---
Hospitalist Progress Note Assessment/Plan: Assessment: 36 yo F w/ morbid obesity p/w bacteremia Plan: #Enterococcus/Nesha bacteremia: port removed. Only on PO fluconazole through September 16 - plan to not replace port as it serves as additional source of infxn #h/o DVT/PE: recommended warfarin, but pt refusing. Currently on Lovenox 130mg BID #Pleuritic chest pain: cannot evaluate for PE given body habitus, likely 2/2 habitus vs. functional #Volume overload: Lasix 80mg BID, continue #Chronic hypoxemic resp failure: due to [place] and [facility] - Cont CPAP #Metabolic alkalosis: chronic resp failure #Tobacco abuse: nicotine patch Diet. Regular PPx. High risk, on lovenox Code. DNR Dispo. Hospice eval this afternoon, could go to inpatient hospice vs. BM w/ hospice assistance Subjective: patient would like her chest wall bandage changed, she feels like she will be discharged soon and she is okay with this Objective: Vital Signs Temp Pulse Resp BP Pulse Ox 36.7 C 71 18 99/68 L 100 09/13/16 08:00 09/13/16 08:00 09/13/16 08:00 09/13/16 08:00 09/13/16 08:00 Microbiology 08/30/16 13:30 Blood Panel (PCR) - Final Blood Nesha Parapsilosis 09/07/16 13:37 Blood Culture - Final Blood 09/02/16 11:00 Gram Stain - Final Other - Other Anaerobic Culture - Final Staphylococcus Epidermidis Enterococcus Faecalis Laboratory Results 09/02/16 05:15 09/10/16 06:00 PT 15.8 SEC (12.0-15.0) H 08/27/16 21:50 INR 1.26 (0.83-1.16) H 08/27/16 21:50 - Time Spent With Patient Time Spent with Patient: greater than 25 minutes Time Spent with Patient: Greater than 25 minutes spent on this patients care, greater than 50% of time spent counseling, educating, and coordinating care regarding the above mentioned plan. - Pending Discharge Pending Discharge Within 24 Hours: Yes Pending Discharge Date: 09/14/16 Pending Discharge Time: 11:00 - Physical Exam Constitutional: chronically ill appearing, obese Skin: other ( leading bandage long chest without surrounding erythema) Psychiatric: not anxious, flat affect, No agitated ICD10 Worksheet Patient Problems: Problems Problem Status Onset Pneumonia Acute Chest pain Acute Morbid obesity Acute D-dimer, elevated Acute
[2016-09-13] MEDS: clonazePAM 1 MG TAB PO PRN (22:11)
[2016-09-14] MEDS: HYDROmorphONE/DILAUDID 4 MG TAB PO PRN ×4 (03:05→19:06)
[2016-09-14] MEDS: NICOTINE 21 MG/24 HR PATCH TD SCH (08:47)
[2016-09-14] MEDS: POLYETHYLENE GLYCOL 3350 17 GM PKT PO SCH (08:47)
[2016-09-14] MEDS: FUROSEMIDE 40 MG TAB PO SCH ×2 (08:47→13:41)
[2016-09-14] MEDS: SENNOSIDES/DOCUSATE SODIUM TAB PO SCH (08:47)
[2016-09-14] MEDS: FLUCONAZOLE 100 MG TAB PO SCH (08:47)
[2016-09-14] MEDS: DOCUSATE SODIUM 100 MG CAP PO SCH (08:47)
[2016-09-14] MEDS: POTASSIUM CL 20 MEQ TAB PO SCH (08:47)
[2016-09-14] MEDS: MAGNESIUM HYDROXIDE 30 ML UDCUP PO SCH (08:47)
[2016-09-14] MEDS: acetaZOLAMIDE 250 MG TAB PO SCH (08:47)
[2016-09-14] MEDS: ENOXAPARIN 30 MG/0.3 ML SYR SC SCH (09:20)
[2016-09-14] MEDS: ENOXAPARIN 100 MG/ML SYR SC SCH (09:20)
--- NOTE | 2016-09-14 09:43 | PDIAF ---
- Diagnosis Diagnosis: Morbid Obesity, Bacteremia Code Status: Do Not Resuscitate - Medication Management Discharge Medications: Medications to Continue on Transfer Acetaminophen [Tylenol ES 500 mg (*)] 500 mg PO Q6H PRN 09/23/14 [Last Taken 03/03 10:09] Enoxaparin [Lovenox 120 MG (*)] 120 mg SQ BID 09/23/14 [Last Taken 08/25/16 10: 43] Docusate Sodium [Colace 100 MG (*)] 100 mg PO BID 11/08/14 [Last Taken 08/25/16 10:43] oxyCODONE IR [Oxycodone Ir (*)] 10 mg PO Q6H PRN 04/22/15 [Last Taken 08/25/16 10:07] Promethazine HCl [Phenergan 25mg (*)] 25 mg PO BID PRN #30 tab 04/27/15 [Last Taken 08/25/16 10:07] HYDROmorphone HCL [Dilaudid 2 mg (*)] 4 mg PO Q3H PRN 08/26/16 [Last Taken 08/25] Sennosides/Docusate Sodium [Senokot-S] 2 tab PO BID 08/26/16 [Last Taken 10:43] Acetaminophen [Tylenol 325mg (*)] 650 mg PO Q4HRS PRN #0 tab 09/14/16 [Last Taken Unknown] Fluconazole [Diflucan (*)] 800 mg PO DAILY tab 09/14/16 [Last Taken Unknown] Furosemide [Lasix 40 MG (*)] 80 mg PO DAILY tab 09/14/16 [Last Taken Unknown] Nicotine Polacrilex [Nicorette gum (*)] 2 mg B PRN PRN #0 gum 09/14/16 [Last Taken Unknown] Ondansetron Odt [Zofran Odt 4 mg (*)] 4 mg PO Q4HRS PRN #0 tab 09/14/16 [Last Taken Unknown] acetaZOLAMIDE [Diamox] 500 mg PO BID tab 09/14/16 [Last Taken Unknown] clonazePAM [klonoPIN (*)] 1 mg PO BID PRN #0 tab 09/14/16 [Last Taken Unknown] Group Home Antibiotics: Oral Fluconazole Therapy Manager Antibiotic Stop Date: 09/16/16 Discharge Medications: Refer to the Discharge Home Medication list for PRN reason. PICC Care - Routine: N/A - Orders Services needed: Registered Nurse, Certified Driver Retraining Instructor Diet Recommendation: no restrictions on diet Wound Care Instructions: Wound care orders for pannus and skin folds where there is redness/breakdown present: to be done by clinical technologist every morning and at HS. 1) cleanse site gently w/ warm water and washcloth. 2) pat dry. 3) tuck Interdry sheet into both sides of pannus, covering any red/broken down areas ( this may require 2-3 sheets). Sheets may be rinsed out at HS and hung up to dry. Please have a revolving set, with one applied to patient at all times while the other set dries, rotating at a.m. and HS. DO NOT USE w/ anti-fungal powder or cream, as this inactivates the wicking action of the Interdry. Please apply Attrac-tain skin cream (or any lotion w/ AHA or urea to exfoliate) to bilateral feet (not in between toes) BID. may apply if that is patient's preference. - Follow Up Care Current Providers and Referrals: ALEXANDER BARBOSA [Primary Care Provider] - As per Instructions
--- NOTE | 2016-09-14 10:44 | PDDCSUM ---
Discharge Summary Discharge Summary: DISCHARGE SUMMARY FOLLOW-UP ITEMS: Hospice care at [facility] [place] DATE OF ADMISSION: 08/26/2016 DATE OF DISCHARGE: 09/14/2016 DISCHARGE DIAGNOSES: 1. Enterococcal bacteremia and Nesha fungemia 2. Chronic hypoxic respiratory failure 3. Obesity hypoventilation syndrome/ISRAEL 4. Metabolic alkalosis 5. Morbid obesity 6. Chronic pain with continuous opiate dependency 7. Volume overload 8. Acute chest pain CONSULTATIONS: General surgery, hospice, infectious Disease PROCEDURES / IMAGING: Port-A-Cath removal CHIEF COMPLAINT: Acute chest pain SUBJECTIVE: Patient understands that she is being discharged today, she is concerned about the bandage on her anterior chest PHYSICAL EXAM ON DISCHARGE: Systolic blood pressure 100, patient's SpO2 is stable on BiPAP, morbidly obese, responsive to verbal stimuli, minimal blood on left anterior chest bandage LABS ON DISCHARGE: Serum bicarbonate 45, creatinine 0.8, potassium 4.1 HOSPITAL COURSE BY PROBLEM: 1. Acute chest pain. Patient presented with acute chest pain, most likely pleuritic in nature and secondary to body habitus verses infected Port-A-Cath. Patient had a negative cardiac ischemic evaluation. She was treated supportively. 2. Enterococcal bacteremia and Nesha fungemia. Port-A-Cath considered to be the source, removed, patient treated with vancomycin and fluconazole. Patient will receive 2 weeks of fluconazole after Port-A-Cath removal. There was extensive discussion as to whether to replace the port given that the port was placed initially purely for convenience sake given patient's morbid obesity and difficult blood draws, decision was made not to replace the poor as it would place her at imminent risk of recurrent bacteremia. Additionally, the patient did not want a port placed. The patient was seen by infectious disease and they worked closely with the patient's mother to understand the above-mentioned plan. 3. Chronic hypoxic respiratory failure. Secondary to a combination of obesity hypoventilation syndrome as well as ISRAEL, the patient requires BiPAP when she is sleeping, the patient is morbidly obese and does not move, resulting in significant atelectasis from her habitus, she requires ongoing supplemental oxygen and BiPAP with sleep. 4. Morbid obesity. Patient has a BMI of 60 and has been immobile for several years per report. Patient is high risk of related to her massive habitus as well as all the complications which include infections and respiratory issues. Extensive discussion took place between the patient and palliative care services and the patient was accepted for hospice in [place] [facility] 5. Volume overload. Patient was actively diuresed during this hospitalization she will be continued on a higher dosage of Lasix then she was originally admitted on. 6. History of deep venous thrombosis/pulmonary embolism. Patient has refused warfarin and she has remained on therapeutic Lovenox. 7. Metabolic alkalosis. Secondary to chronic respiratory failure, serum bicarbonate 45 at time of discharge. 8. Chronic pain with continuous opiate dependency. The patient is receiving a combination of oxycodone as well as Dilaudid for pain management, given that the patient's goals of care are hospice level, no indication to wean off of opiates at this time. DISCHARGE MEDICATIONS: Please see official discharge medication reconciliation sheet in chart , fluconazole dosed through September 16. DISCHARGE INSTRUCTIONS: Patient will be discharged to inpatient hospice at this time. TIME SPENT: Greater than 30 minutes were spent on direct patient care, as well as discharge planning and preparation.
[2016-09-14 13:26] VITALS: BP 115/83
[2016-09-14] MEDS: clonazePAM 1 MG TAB PO PRN ×2 (13:42→19:10)
[2016-09-14 13:54] VITALS: PULSE 74; RESP 14; TEMP 97.6; O2SAT 96
[2016-09-14] MEDS ORDERED: HYDROCORTISONE ACETATE 25 MG SUPP PR PRN (14:08)
== END 2016-09-14 20:09 | disposition hospice, home (50) | DRG 315 ==
LOC: EDUNIT# → F3E 06:48 → OBSVTOIN 17:46
PROVIDERS: ADMIT Internal Medicine; ATTEND Internal Medicine
PROC: 0JPT3XZ Removal of Tunneled Vascular Access Device from Trunk Subcutaneous Tissue and Fascia, Percutaneous Approach (ICD-10-PCS; principal; 2016-09-02 09:00)
PROC: 05HY33Z Insertion of Infusion Device into Upper Vein, Percutaneous Approach (ICD-10-PCS; principal; 2016-09-02 09:00)
DX: T80.218A Other infection due to central venous catheter, initial encounter (principal); J96.11 Chronic respiratory failure with hypoxia; E66.2 Morbid (severe) obesity with alveolar hypoventilation; Z68.44 Body mass index [BMI] 60.0-69.9, adult; F11.20 Opioid dependence, uncomplicated; B95.2 Enterococcus as the cause of diseases classified elsewhere; B37.9 Candidiasis, unspecified; G89.29 Other chronic pain; Z86.711 Personal history of pulmonary embolism; Z86.718 Personal history of other venous thrombosis and embolism; Z66 Do not resuscitate; F17.200 Nicotine dependence, unspecified, uncomplicated
CPT/HCPCS: 85260-90; 85520-90; 87186-90; J1170; J1335; J1450; J1642; J1650; J1940; J2060; J2250; J2704; J2997; J3010; J3370

== ENCOUNTER 2016-10-27 17:54 | Inpatient (IN) | payer MEDICAID ==
[2016-10-27] MEDS ORDERED: HYDROmorphONE/DILAUDID 2 MG TAB PO ONE (21:26)
--- NOTE | 2016-10-27 23:20 | PDCONSULT ---
[employer] Note: Consultation History & Physical Consulting provider: Raymon Olmos, emergency department Reason for consultation: Acute arm pain History of present illness: 36-year-old female presenting with acute right upper extremity pain, onset on the day of this presentation in the context of chronic pain syndrome with pain frequently rising in all of her extremities, historically alleviated with oral pain medications. The patient is somewhat challenging historian she is unable to characterize whether the pain she is experiencing in her right upper extremity similar in character to the pain which she frequently experiences in her extremities. According to [facility], patient did express that the pain in her arm felt like it was "Broken" . That being said, there is no record of the patient experiencing any trauma to the affected area. Patient did receive 2 mg of oral Dilaudid in our emergency department and this seemed to alleviate the pain, resulting in the patient being able to sleep comfortably. Review of systems: Positive for right upper extremity pain, diffuse chronic pains in all of her extremities, stress and anxiety, all other 10 point review of systems is otherwise negative per patient. 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 Past surgical history: Leg surgery with leona placement, leading to chronic pain , cholecystectomy, port placement and removal, , hernia repair. Social history: Patient has previously been residing in care home facility prior to her hospitalization at [facility] in August of 2016 , she was then transitioned to [facility], and she currently does not have an identifiable home moving forward. Family history: Patient's mother and reportedly became disruptive at [facility] on the day prior to this presentation. Allergies: Numerous chart allergies see details. Physical exam: See vital signs in chart, patient is morbidly obese and lying on her abdomen, she is sensation on her bilateral upper extremities and while she is lying on them in the raised flexed position, her right upper extremity does not appear to be dislocated, there is no tenderness to palpation over the skin folds of her right upper extremity but her habitus prevents full range of motion exam of the right shoulder, the patient is able to verbally respond to questions although her speech is somewhat muffled and difficult to comprehend, she is visually tracking and responding appropriately verbally from what I am able to gather, her breath sounds are diminished posteriorly but present, palpable pulses bilateral radialis. Data: I have personally reviewed the history and physical by Dr. Randell Foster from 08/26/2016 as well as the discharge summary by Dr. Nicholas Shoemaker from 09/14/2016. Assessment: 36-year-old female presents with acute on chronic right upper extremity pain in the setting of morbid obesity and chronic pain with continuous opiate dependency. Plan: 1. Upper extremity pain. Acute on chronic, most likely secondary to a combination of body habitus, body positioning, chronic pain syndrome, and recent stressors including an episode between the [facility] facility and the patient's family. My experience with this patient from the past has been that her chronic pain syndrome becomes more noticeable to the patient and is more readily verbalized by her when she is acutely stressed I suspect that the stress and anxiety surrounding her family and ultimate disposition has made her more prone to verbalizing her physical discomforts. Her physical exam does not demonstrate any dislocation and in the absence of any trauma or injury, fracture is unlikely. Although the patient described her arm as "broken", it is not uncommon for her to use such a descriptor to refer to pain and discomfort. That being said, we realize that mobilizing this patient can take considerable resources and lifting techniques and an injury is not implausible. Consequently, we will fully evaluate this with a right upper extremity and shoulder x-ray to ensure that the area has not been structurally damaged. We will also provide the patient with oral Dilaudid as needed to ensure successful pain control. I believe that from a medical standpoint, if the patient does not have a fracture and her pain is appropriately managed, then the patient's condition is medically stabilized and she has no indication for observation or inpatient level care. She should be returned to the facility from whence she came and her discharge planning from that facility should resume. It was reported to me by our nursing and medical staff that the patient was transferred to our emergency department from the [facility] for evaluation of the aforementioned chief complaint. This was confirmed through direct conversation with the President of [facility], Adelaida Garcia. It is my recommendation that now that the patient's chief complaint has been fully evaluated and treated, that she be discharged back to her original facility. Any facility that transfers a patient for evaluation and management of a chief complaint is responsible for accepting that patient back under their care after that chief complaint has been properly, medically addressed, as the complaint above has been. [facility] has informed us that they will not be receiving the patient from our emergency department now that the condition has been medically evaluated and stabilized. Their reasoning is that the patient no longer meets inpatient hospice criteria, and that the patient has been discharged from their facility. However, transferring a patient to an emergency department for evaluation and management of a chief complaint does not constitute a safe discharge plan - it constitutes an emergency evaluation, which has been properly performed, as stated above. Any facility which discharges a patient is responsible for facilitating a safe discharge plan, and this simply has not been performed by [facility] because an emergency department evaluation is not a discharge plan. Consequently, [facility] has not prepared a safe discharge plan and this patient cannot be discharged from their facility until such plan has been prepared and the patient has agreed to said plan. It was the assertion of Radha that the patient had agreed to a transfer to our emergency department, and this is a moot point because the patient was agreeing to emergent evaluation and management, not an actual discharge plan. A safe discharge plan was never facilitated for this patient and consequently [facility] has not met discharge requirements for the patient. Therefore, they are not in a position to discharge the patient and refusing to accept the patient from our emergency department now that proper medical services have been provided is a case of abandonment. We will continue to service this patient's needs in the emergency department setting until a safe solution can be arranged for Ms. Metcalf. I have communicated this with our director of case management, our [facility] on duty, our Emergency Dept staff and provider, and we are all in agreement. The President of [facility] would like to continue discussing this matter with our director of case management tomorrow, and she can be reached by requesting Adelaida Kapoorallum at [phone]. Greater than 110 minutes were spent on counseling this patient regarding the issues outlined above, as well as coordinating her care.
--- NOTE | 2016-10-28 00:49 | EDPHY ---
H & P Stated Complaint: arm pain - Personal History LMP (Females 10-55): Unknown Current Tetanus Diphtheria and Acellular Pertussis (TDAP): Unsure Tetanus Vaccine Date: 2012 - Medical/Surgical History Hx Asthma: No Hx Chronic Respiratory Disease: Yes Hx Diabetes: No Hx Cardiac Disease: No Hx Renal Disease: No Hx Cirrhosis: No Hx Alcoholism: No Hx HIV/AIDS: No Hx Splenectomy or Spleen Trauma: No Other PMH: Morbid obesity, pneumonia, abdominal surgery, epi, left leg surgery ; L chest port; anxiety; constipation; x2 PTX, ovarian cyst, wears 8L/NC at baseline, chronic pain, PE x 2 - Social History Smoking Status: Former smoker <Raymon Olmos - Last Filed: 10/28/16 00:42> <Ada Guy - Last Filed: 10/28/16 06:02> <Artem Grider - Last Filed: 10/28/16 06:54> <Rosana Simmons - Last Filed: 10/28/16 19:03> HPI/ROS: Chief complaint: Arm pain History of present illness: This is a 36-year-old female brought to the emergency department by EMS for evaluation of arm pain. Patient has a history of multiple medical problems. She has been on hospice care. Apparently she no longer meets hospice criteria. She was discharged from hospice this afternoon. She was sent here for evaluation of her arm pain. On my evaluation she complains of pain throughout her body. She states her arms hurt as well as other parts of her body. It is difficult to understand her as she is mumbling. Review of systems: Unable to obtain given patient's persistent mumbling (Raymon Olmos) - Physical Exam Exam: General Appearance: Alert, unable to understand her when she speaks. Patient is morbidly obese. Eyes: Pupils equal and round no pallor or injection. ENT, Mouth: Mucous membranes moist. Respiratory: There are no retractions, lungs are clear to auscultation. Cardiovascular: Regular rate and rhythm. Gastrointestinal: Abdomen is soft and non tender, no masses, bowel sounds normal. Neurological: Alert. Skin: Warm and dry, no rashes. Musculoskeletal: Patient is able to move extremities with limited range of motion. Psychiatric: There is no agitation. (Raymon Olmos) Constitutional: Initial Vital Signs Temperature (C) 37.5 C 10/27/16 18:12 Heart Rate 92 10/27/16 18:12 Respiratory Rate 15 10/27/16 18:12 Blood Pressure 106/93 H 10/27/16 18:12 O2 Sat (%) 90 L 10/27/16 18:12 O2 Delivery Mode Nasal Cannula O2 (L/minute) 3 Allergies/Adverse Reactions: amoxicillin Allergy (Verified 08/26/16 12:26) aspirin Allergy (Verified 08/26/16 12:26) bupropion HCl [From Wellbutrin] Allergy (Verified 08/26/16 12:26) cephalexin monohydrate [From Keflex] Allergy (Verified 08/26/16 12:) ciprofloxacin Allergy (Verified 08/26/16:) codeine Allergy (Verified 08/26/16:) cyclobenzaprine Allergy (Verified 08/26/16:) cyclobenzaprine HCl [From Flexeril] Allergy (Verified 08/26/16 12:) divalproex sodium [From Depakote] Allergy (Verified 08/26/16:) fish oil Allergy (Verified 08/26/16 12:) guaifenesin Allergy (Verified 08/26/16 12:26) ibuprofen Allergy (Verified 08/26/16 12:) Iodinated Contrast Media - Oral and [Iodinated Contrast Media - IV Dye] Allergy (Verified 08/26/16 12:26) ketorolac Allergy (Verified 08/26/16 12:26) latex Allergy (Verified 08/26/16 12:26) morphine Allergy (Verified 08/26/16 12:26) mupirocin Allergy (Verified 08/26/16 12:) nitroglycerin Allergy (Verified 08/26/16 12:26) NSAIDS (Non-Steroidal Anti-Inflamma Allergy (Verified 08/26/16 12:26) Penicillins Allergy (Verified 08/26/16 12:26) reishi mushroom [mushrooms] Allergy (Verified 08/26/16 12:) sertraline HCl [From Zoloft] Allergy (Verified 08/26/16 12:26) sulfamethoxazole Allergy (Verified 08/26/16 12:26) tramadol Allergy (Verified 08/26/16 12:26) trimethoprim Allergy (Verified 08/26/16 12:26) venlafaxine HCl [From Effexor] Allergy (Verified 08/26/16 12:26) zolpidem tartrate [From Ambien] Allergy (Verified 08/26/16 12:26) Home Medications: Medication Instructions Recorded HYDROmorphone HCL [Dilaudid 2 mg 2 - 4 mg PO Q8H PRN 10/28/16 (*)] HYDROmorphone HCL [Dilaudid 4 mg 10 mg PO Q4H 10/28/16 (*)] clonazePAM [klonoPIN (*)] 2 mg PO Q8H 10/28/16 traZODone [traZODone 150MG (*)] 150 mg PO HS 10/28/16 Medical Decision Making <Raymon Olmos - Last Filed: 10/28/16 00:42> <Ada Guy - Last Filed: 10/28/16 06:02> <Artem Grider - Last Filed: 10/28/16 06:54> - Diagnostics Imaging: I viewed and interpreted images myself <Rosana Simmons - Last Filed: 10/28/16 19:03> - Diagnostics Imaging Results: Imaging Impressions Shoulder X-Ray 10/27/16 23:49 Impression: Unremarkable single view of the left scapula. Forearm X-Ray 10/28/16 15:34 Impression: 1. No radius or ulnar fracture identified. 2. Possible scaphoid fracture versus positional overlap. Humerus X-Ray 10/28/16 15:35 Impression: 1. Negative right humeral radiographs. Shoulder X-Ray 10/28/16 15:35 Impression: Negative right shoulder radiographs. ED Course/Re-evaluation: Patient is discussed with my secondary supervising physician Dr. Anabella Lucas. Patient presents to the emergency department with EMS for evaluation of arm pain. Apparently she has been in hospice care but no longer meets hospice criteria and was discharged. She was sent here for evaluation of her arm pain. On my evaluation she is difficult to understand. From what I understand she states she hurts everywhere. She does have chronic pain. Ultimately she is not fit for discharge as she cannot care for herself. I did move to admit her for further evaluation and care and placement. I consulted with the hospitalist, Dr. Mumtaz Shoemaker. He is very familiar with this patient as he arranged hospice care for her. He has discussed this patient at length with the hospice team and talked with our patient case manager. Ultimately patient will stay in the emergency department overnight, her pain will be managed. Case management will see her in the morning. It sounds like she will be able to go back to hospice but this will be determined in the morning. Care of patient is turned over to Dr. Ada Guy at end of shift. (Raymon Olmos) 6:00 a.m.- The patient has been stable throughout my shift and has been sleeping for most of it. She is currently awaiting further evaluation for placement and case management is aware of her situation. The case will be signed out to the oncoming provider Dr. Grider at change of shift pending placement. Please see Dr. Shoemaker's note for further information. (Ada Guy) 4 p.m.-I assumed care of this patient. Case management is working on disposition of this pt. She is not welcome back to her hospice facility. 4:10pm- unable to place pt today, pt will need admission for placement. Consulted Dr. Storm, will admit pt. 1814: I viewed the patient's upper extremity x-rays. No evidence of fracture. ( Rosana Simmons) Other Provider: I assumed care of the patient at 0700. (Artem Grider) - Data Points Medications Given: Discontinued Medications Hydromorphone HCl (Dilaudid) 2 mg PO EDNOW ONE Stop: 10/27/16 21:27 Last Admin: 10/27/16 22:00 Dose: 2 mg Departure <Raymon Olmos - Last Filed: 10/28/16 00:42> <Ada Guy - Last Filed: 10/28/16 06:02> <Artem Grider - Last Filed: 10/28/16 06:54> <Rosana Simmons - Last Filed: 10/28/16 19:03> - Departure Disposition: [facility] Inpatient Acute Clinical Impression: Morbid obesity Arm pain Qualifiers: Laterality: left Qualified Code(s): M79.602 - Pain in left arm Condition: Good
[2016-10-28] MEDS ORDERED: HYDROmorphONE/DILAUDID 2 MG TAB ONE ×2 (02:41→11:26)
[2016-10-28] MEDS: HYDROmorphONE/DILAUDID 2 MG TAB PO PRN ×3 (02:59→22:35)
[2016-10-28] MEDS ORDERED: oxyCODONE IR 5 MG TAB PO PRN (19:27)
[2016-10-28] MEDS ORDERED: ONDANSETRON DISINTEGRATING 4 MG TAB PO PRN (19:27)
[2016-10-28] MEDS ORDERED: ONDANSETRON 4 MG/2 ML VIAL IVP PRN (19:27)
[2016-10-28] MEDS ORDERED: ACETAMINOPHEN 325 MG TAB PO PRN (19:27)
--- NOTE | 2016-10-28 19:34 | HOSPPROG ---
Hospitalist Progress Note Assessment/Plan: 36-year-old with morbid obesity was on hospice sent in from [facility] for arm pain. * Arm pain * x-rays are negative * she is pretty difficult to understand currently * continue oral medications * morbid obesity/ obesity hypoventilation syndrome/ recurrent pneumonia/ no IV access/ previous history of pulmonary embolism * for all these chronic issues patient had elected to go to hospice. * [facility] [place] will not take the patient back * case management working on placement Subjective: no complaining of left upper extremity pain Objective: Vital Signs Temp Pulse Resp BP Pulse Ox 36.4 C 83 16 97/68 L 92 10/28/16 08:00 10/28/16 12:00 10/28/16 12:00 10/28/16 12:00 10/28/16 12:00 - Physical Exam Constitutional: no apparent distress, appears nourished, not in pain, obese Ears, Nose, Mouth, Throat: moist mucous membranes Respiratory: no respiratory distress Neurologic: AAOx3 ICD10 Worksheet Patient Problems: Problems Problem Status Onset Arm pain Acute Morbid obesity Acute Chest pain Acute D-dimer, elevated Acute Pneumonia Acute
[2016-10-28] MEDS: clonazePAM 1 MG TAB PO SCH (19:50)
[2016-10-28] MEDS: HYDROmorphONE/DILAUDID 4 MG TAB PO SCH (19:52)
[2016-10-29] MEDS: HYDROmorphONE/DILAUDID 4 MG TAB PO SCH ×6 (00:29→19:47)
[2016-10-29] MEDS: clonazePAM 1 MG TAB PO SCH ×3 (03:44→19:48)
[2016-10-29] MEDS: HYDROmorphONE/DILAUDID 2 MG TAB PO PRN (09:57)
--- NOTE | 2016-10-29 13:49 | HOSPPROG ---
Hospitalist Progress Note Assessment/Plan: # Acute arm pain - this was the reasoning for bringing patient to ER - Arm/shoulder x-rays (personally reviewed and interpreted) no acute fractures - contracted with patient to allow rotating as body habitus and positioning likely cause of her MSK pain - cont PO prn meds # Morbid obesity- BMI > 60 - 226 Kg -patient recently discharged to [facility] 09/14/2016- SW aggressively investigating next disposition options as patient unable to care for herself # obesity hypoventilation syndrome/ obstructive sleep apnea with chronic hypoxic respiratory failure - oxygen saturations 91% on 6L mask bicarb 45 last checked - cont supplemental O2 # 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 # proph - SCD's # diet - regular # dispo - pending SW evluation and coordination I have discussed the case with RN - will continue scheduled rotations as contracted with patient Subjective: pain while laying on back Objective: Vital Signs Temp Pulse Resp BP Pulse Ox 37.4 C 112 H 24 H 122/84 H 91 L 10/29/16 07:25 10/29/16 07:25 10/29/16 07:25 10/29/16 07:25 10/29/16 07:25 10/28/16 10/29/16 10/30/16 05:59 05:59 05:59 Intake Total 600 Balance 600 - Physical Exam Constitutional: obese Eyes: anicteric sclera Ears, Nose, Mouth, Throat: dry mucous membranes Cardiovascular: regular rate and rhythym Respiratory: no respiratory distress Genitourinary: No carrillo in urethra Skin: warm Musculoskeletal: No asymmetric calves Neurologic: No AAOx3 Psychiatric: agitated Lymph, Heme, Immunologic: no cervical LAD ICD10 Worksheet Patient Problems: Problems Problem Status Onset Arm pain Acute Morbid obesity Acute Chest pain Acute D-dimer, elevated Acute Pneumonia Acute
[2016-10-30] MEDS: HYDROmorphONE/DILAUDID 4 MG TAB PO SCH ×6 (00:03→19:27)
[2016-10-30] MEDS: clonazePAM 1 MG TAB PO SCH ×3 (03:28→19:27)
[2016-10-30] MEDS: HYDROmorphONE/DILAUDID 2 MG TAB PO PRN (10:34)
--- NOTE | 2016-10-30 12:28 | HOSPPROG ---
Hospitalist Progress Note Assessment/Plan: # Acute right wrist pain - migrating MSK pain of the UE wrist x-rays (personally reviewed and interpreted) no acute fractures - working on rotating body positioning - consider warm compress - contracted with patient to allow rotating as body habitus and positioning likely cause of her MSK pain - cont PO prn meds # Morbid obesity- BMI > 80 - 226 Kg -patient recently discharged to [facility] 09/14/2016- SW aggressively investigating next disposition options as patient unable to care for herself # obesity hypoventilation syndrome/ obstructive sleep apnea with chronic hypoxic respiratory failure - oxygen saturations 94% on 15L mask bicarb 45 last checked - cont supplemental O2 # 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 # proph - SCD's # diet - regular # dispo - pending SW evaluation and coordination I have discussed the case with CM - we are arranging hospital to hospital transfer to per patient request Subjective: UE discomfort Objective: Vital Signs Temp Pulse Resp BP Pulse Ox 36.9 C 94 18 125/78 H 94 10/30/16 07:43 10/30/16 07:43 10/30/16 07:43 10/29/16 22:46 10/30/16 07:43 10/29/16 10/30/16 10/31/16 05:59 05:59 05:59 Intake Total 600 200 Balance 600 200 - Physical Exam Constitutional: obese Eyes: anicteric sclera Ears, Nose, Mouth, Throat: dry mucous membranes Cardiovascular: regular rate and rhythym Respiratory: no respiratory distress Gastrointestinal: normoactive bowel sounds Skin: warm Musculoskeletal: No asymmetric calves Neurologic: AAOx3 Psychiatric: depressed, flat affect Lymph, Heme, Immunologic: no cervical LAD ICD10 Worksheet Patient Problems: Problems Problem Status Onset Arm pain Acute Morbid obesity Acute Chest pain Acute D-dimer, elevated Acute Pneumonia Acute
--- NOTE | 2016-10-30 13:00 | WOCRNPDOC ---
WOCRN Advanced Assessment Note - Skin Integrity Problem, Advanced Assess Left Upper Medial Arm Excoriation Dressing Type: Open to Air Exudate Color: Clear Exudate Characteristic(s): Serous Integumentary Issue Intervention: Barrier Cream Applied (Antifungal powder plus Calazime protectant) Jeny Wound Tissue: Erythema, Excoriated, Painful/Tender Jeny Wound Swelling: None Wound Bed Color: [place] Wound Bed Constitution: Smooth Tissue Site Odor: Musky Site Odor Comment: fungal odor Site Measurement - Head-to-Toe Length X Width X Depth (cm): diffuse area Skin Integrity Problem Comment: Deep skin fold with epidermal erosion at fundus of fold, a site subject to chronic accumulation of moisture (e.g. perspiration) : Appears irritated, patient endorses tenderness. With MARCIA Beckwith and 3E care team assisting with care and repositioning, cleansed area using moisture barrier wipes. Applied antifungal powder, sealed in place with a light application of Calazime. Same plan for most skin folds, to simplify care for patient comfort. PR caregiver/payroll machine operator reports that this plan is consistent with care that has been "working the best at the [facility]." Bilateral Groin Folds Dressing Type: ABD Pad Exudate Amount: Scant Exudate Color: Clear Exudate Characteristic(s): Serous Integumentary Issue Intervention: Barrier Cream Applied (Antifungal cream plus Calazime protectant) Jeny Wound Tissue: Erythema, Intact Jeny Wound Swelling: None Wound Bed Color: [place] Wound Bed Constitution: Smooth Tissue Site Odor: Musky Site Odor Comment: fungal Site Measurement - Head-to-Toe Length X Width X Depth (cm): diffuse Skin Integrity Problem Comment: Deep skin folds with epidermal erosion at fundus. Sites subject to chronic accumulation of moisture (e.g. perspiration, urine): Appear irritated, patient endorses tenderness. With MARCIA Beckwith and 3E care team assisting with care and repositioning, cleansed area using moisture barrier wipes. Applied antifungal powder, sealed in place with a light application of Calazime. Bilateral Axilla Excoriation Dressing Type: Interdry Dressing Description: Saturated Exudate Amount: Scant Exudate Color: Clear, Red Exudate Characteristic(s): Serosanguinous Integumentary Issue Intervention: Dressing Changed Jeny Wound Tissue: Erythema Jeny Wound Swelling: None Wound Bed Color: [place], Red Wound Bed Constitution: Smooth Tissue Wound Edges: Attached Site Odor: Musky Skin Integrity Problem Comment: Deep skin fold with epidermal erosion at fundus of fold, a site subject to chronic accumulation of moisture (e.g. perspiration) : Appears irritated, patient endorses tenderness. With MARCIA Beckwith and 3E care team assisting with care and repositioning, cleansed area using moisture barrier wipes; placed clean, dry Interdry sheets. Bilateral Distal Breast Fold Dermatitis Dressing Type: Interdry Dressing Description: Saturated Exudate Amount: Scant Exudate Color: Clear, Red Exudate Characteristic(s): Serosanguinous Integumentary Issue Intervention: Dressing Removed, Barrier Cream Applied ( Antifungal powder plus Calazime protectant) Jeny Wound Tissue: Erythema, Intact Jeny Wound Swelling: None Site Odor: Musky Skin Integrity Problem Comment: Deep skin folds with epidermal erosion at fundus of fold, a site subject to chronic accumulation of moisture (e.g. perspiration): Appears irritated, patient endorses tenderness. With MARCIA Beckwith and 3E care team assisting with care and repositioning, cleansed area using moisture barrier wipes. Applied antifungal powder, sealed in place with a light application of Calazime. Bilateral Pannus Fold Dermatitis Dressing Type: Interdry Dressing Description: Saturated Integumentary Issue Intervention: Dressing Removed, Barrier Cream Applied ( Antifungal powder plus Calazime) Jeny Wound Tissue: Erythema, Macerated Jeny Wound Swelling: None Wound Bed Color: [place], Red Wound Bed Constitution: Smooth Tissue Site Odor: Musky, Pungent Site Measurement - Head-to-Toe Length X Width X Depth (cm): diffuse Skin Integrity Problem Comment: Deep skin folds with epidermal erosion at fundus of fold, sites subject to chronic accumulation of moisture (e.g. perspiration and urine): Appears irritated, patient endorses tenderness. DC'd Interdry sheet 2/2 MARCIA Beckwith reporting difficulty managing to maintain position and dry sheets at these locations. With MARCIA Beckwith and 3E care team assisting with care and repositioning, cleansed area using moisture barrier wipes. Applied antifungal powder, sealed in place with a light application of Calazime. Bilateral Posterior Knee Dermatitis Dressing Type: Open to Air Exudate Amount: Scant Exudate Color: Clear Exudate Characteristic(s): Serous Integumentary Issue Intervention: Barrier Cream Applied (Antifungal powder plus Calazime protectant) Jeny Wound Tissue: Erythema, Intact Jeny Wound Swelling: None Wound Bed Color: Fl[place]illa Wound Bed Constitution: Smooth Tissue Site Measurement - Head-to-Toe Length X Width X Depth (cm): diffuse Skin Integrity Problem Comment: Deep skin folds with epidermal erosion at fundus of folds, sites subject to chronic accumulation of moisture (e.g. perspiration. urine): Appear irritated. With MARCIA Beckwith and 3E care team assisting with care and repositioning, cleansed area using moisture barrier wipes. Applied antifungal powder, sealed in place with a light application of Calazime. Bilateral Gluteal Folds Dermatitis Dressing Type: Open to Air Integumentary Issue Intervention: Barrier Cream Applied (Antifungal powder plus Calazime protectant) Jeny Wound Tissue: Erythema, Intact Jeny Wound Swelling: None Site Odor: Musky Site Measurement - Head-to-Toe Length X Width X Depth (cm): diffuse Skin Integrity Problem Comment: Deep skin folds with epidermal erosion at fundi of folds. Sites subject to chronic accumulation of moisture (e.g. perspiration, urine). Appears irritated. With MARCIA Beckwith and 3E care team assisting with care and repositioning, cleansed area using moisture barrier wipes. Applied antifungal powder, sealed in place with a light application of Calazime.
[2016-10-31] MEDS: HYDROmorphONE/DILAUDID 4 MG TAB PO SCH ×3 (00:16→08:52)
[2016-10-31 00:43] VITALS: RESP 20
[2016-10-31] MEDS: clonazePAM 1 MG TAB PO SCH ×2 (05:58→11:55)
[2016-10-31 07:16] VITALS: BP 107/68
[2016-10-31] MEDS ORDERED: HYDROmorphONE/DILAUDID 2 MG TAB PO SCH ×2 (10:30→18:00)
--- NOTE | 2016-10-31 11:34 | HOSPPROG ---
Hospitalist Progress Note Assessment/Plan: # Acute right wrist pain - migrating MSK pain of the UE wrist x-rays (personally reviewed and interpreted) no acute fractures - working on rotating body positioning - consider warm compress - contracted with patient to allow rotating as body habitus and positioning likely cause of her MSK pain - cont PO prn meds # Morbid obesity- BMI > 80 - 226 Kg -patient recently discharged to [facility] 09/14/2016- SW aggressively investigating next disposition options as patient unable to care for herself # obesity hypoventilation syndrome/ obstructive sleep apnea with chronic hypoxic respiratory failure - oxygen saturations 94% on 15L mask bicarb 45 last checked - cont supplemental O2 # diffuse skin excoriations and epidermal erosions -present on admission - wound care treating # 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 # proph - SCD's # diet - regular # dispo - pending SW evaluation and coordination I have discussed the case with RN - working to keep patient as comfortable as possible Subjective: pain Objective: Vital Signs Temp Pulse Resp BP Pulse Ox 36.7 C 95 20 107/68 94 10/31/16 07:13 10/31/16 07:13 10/31/16 07:13 10/31/16 07:13 10/31/16 07:13 10/30/16 10/31/16 11/01/16 05:59 05:59 05:59 Intake Total 200 700 Balance 200 700 - Physical Exam Constitutional: obese Eyes: anicteric sclera Ears, Nose, Mouth, Throat: moist mucous membranes Cardiovascular: regular rate and rhythym Respiratory: no respiratory distress, No expiratory wheeze Gastrointestinal: normoactive bowel sounds Genitourinary: no bladder fullness Skin: warm Musculoskeletal: No asymmetric calves Neurologic: AAOx3 Psychiatric: depressed, flat affect Lymph, Heme, Immunologic: no cervical LAD ICD10 Worksheet Patient Problems: Problems Problem Status Onset Arm pain Acute Morbid obesity Acute Chest pain Acute D-dimer, elevated Acute Pneumonia Acute
[2016-10-31] MEDS: HYDROmorphONE/DILAUDID 2 MG TAB PO SCH ×2 (11:56→15:58)
[2016-10-31 15:41] VITALS: PULSE 88; TEMP 96.9; O2SAT 86
[2016-10-31] MEDS ORDERED: NALOXONE HCL 0.4 MG/ML INJ IM PRN (16:11)
[2016-10-31] MEDS ORDERED: HYDROmorphONE/DILAUDID 2 MG TAB PO PRN (16:17)
--- NOTE | 2016-10-31 19:29 | HOSPPROG ---
Hospitalist Progress Note Assessment/Plan: callled to see patient for unresponsiveness pt unresponsive pupils non readctive no pulse no electrical activity DNR at bedside given patient's morbid obesity and agonal respirations, not immediately apparent 35 minutes critical care Objective: Vital Signs Temp Pulse Resp BP Pulse Ox 36.1 C 88 20 107/68 86 L 10/31/16 15:32 10/31/16 15:32 10/31/16 15:32 10/31/16 07:13 10/31/16 15:32 10/30/16 10/31/16 11/01/16 05:59 05:59 05:59 Intake Total 200 700 Balance 200 700 ICD10 Worksheet Patient Problems: Problems Problem Status Onset Arm pain Acute Morbid obesity Acute Chest pain Acute D-dimer, elevated Acute Pneumonia Acute
[2016-10-31] MEDS ORDERED: clonazePAM 0.5 MG TAB PO SCH (21:00)
--- NOTE | 2016-11-02 09:34 | GDS ---
[f rep st] DISCHARGE SUMMARY DATE OF : 10/31/2016. HISTORY OF PRESENT ILLNESS: A 36-year-old female with a history of morbid obesity, obstructive slee p apnea, obesity hypoventilation syndrome who had recently been discharged to a [facility] for end of life care related to the complications of her morbid obesity. The patient was rupesh t back to the emergency room for evaluation of arm pain and her hospice facility refused to take her back. The patient was admitted to the medical floor to allow social work time for additional hospi ce placement. The patient was treated with her chronic pain medications, careful rotations to limit ongoing skin breakdown. On 10/31/2016, the patient became nonresponsive and developed respiratory arrest and on the medical floor with family at the bedside. We believe that her respiratory arrest was secondary to hypercarbic respiratory failure. /[id number]/MODL
== END 2016-11-01 00:30 | disposition expired | DRG 555 ==
LOC: EDUNIT# → F3E 10-28 19:43
PROVIDERS: ADMIT Internal Medicine; ATTEND Internal Medicine
DX: M79.601 Pain in right arm (principal); J96.02 Acute respiratory failure with hypercapnia; E66.2 Morbid (severe) obesity with alveolar hypoventilation; F11.20 Opioid dependence, uncomplicated; J96.11 Chronic respiratory failure with hypoxia; Z86.711 Personal history of pulmonary embolism; G89.4 Chronic pain syndrome; Z86.718 Personal history of other venous thrombosis and embolism
CPT/HCPCS: J2310